=== PATIENT | male | born 1945 | race Caucasian/White ===

== ENCOUNTER → 2019-04-05 09:55 | Outpatient (BNVA) | payer MEDICARE, OTHER, SELFPAY | PROVIDERS: Family Provider Nurse Practitioner; PCP Nurse Practitioner; Visit Provider Nurse Practitioner | DX: E11.9 Type 2 diabetes mellitus without complications (principal); E55.9 Vitamin D deficiency, unspecified; I10 Essential (primary) hypertension | CPT/HCPCS: 80053; 80061; 82306; 83036 ==

== ENCOUNTER → 2020-09-04 13:41 | Outpatient (BNVA) | payer OTHER, MEDICARE, SELFPAY | PROVIDERS: Family Provider Nurse Practitioner; PCP Emergency Medicine Emergency Medical Services; Referring Provider Emergency Medicine Emergency Medical Services; Visit Provider Urology | DX: R97.20 Elevated prostate specific antigen [PSA] (principal); N39.9 Disorder of urinary system, unspecified | CPT/HCPCS: 81003; 84153 ==

== ENCOUNTER 2021-07-29 02:06 | Inpatient (IN) | payer OTHER, MEDICARE, SELFPAY ==
[2021-07-29] VITALS (170 sets, daily range): BP systolic 73–176; BP diastolic 41–116; PULSE 87–117; RESP 7–45; TEMP 36.5–37.3; O2SAT 81–95; BMI 36.3
--- NOTE | 2021-07-29 02:11 | ECG_ITS ---
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 Measurements Intervals [place] Rate: 102 P: 46 AR: 174 QRS: -23 QRSD: 97 T: 42 QT: 324 QTc: 424 Interpretive Statements SINUS TACHYCARDIA PROBABLE INFERIOR MYOCARDIAL INFARCTION , PROBABLY OLD [35 ms Q WAVE IN II/aVF] Compared to ECG 07/29/2021 02:13:30 No significant changes Electronically Signed On 07-29-2021 19:39:41 CDT by Shy Johnson M.D. [id number]
--- NOTE | 2021-07-29 02:11 | XRR_ITS ---
PROCEDURE INFORMATION: Exam: XR Chest Exam date and time: 07/29/2021 2:18 AM Age: 76 years old Clinical indication: Other: Weakness TECHNIQUE: Imaging protocol: XR of the chest. Views: 1 view. COMPARISON: CT Abdomen/Pelvis Renal [id number] 04/23/2017 11:36 AM FINDINGS: Lungs: There is some indistinctness of the pulmonary vasculature and increased interstitial opacity seen in the mid and lower hemithoraces, findings suggesting pulmonary edema. Pleural spaces: Unremarkable. No pleural effusion. No pneumothorax. Heart/Mediastinum: Unremarkable. No cardiomegaly. Bones/joints: Unremarkable. XR/XR chest 1V portable [id number] IMPRESSION: 1. Indistinct pulmonary vasculature and increased interstitial opacities in the mid lower hemithoraces suggest pulmonary edema.
--- NOTE | 2021-07-29 02:16 | W.ED.WEAKNES ---
HPI - Weakness General: Chief complaint: Weakness Stated complaint: Weakness Time Seen by Provider: 07/29/21 02:07 Source: patient and EMS Mode of arrival: EMS Limitations: altered mental status History of Present Illness: 76-year-old male who is here from assisted living. He states he has been getting generally weak over the last 4 to 5 days he had multiple falls EMS states he been called out to his house multiple times. He states that today he was unable to stand on his own and he did agree to come. He is found to be hyperglycemic with a blood sugar of 520 patient has had some slight confusion to is able to tell me his name but is confused on the year and he believes he is in [place]. He has been afebrile he denies a cough. Associated symptoms: Reports confusion; Denies chest pain, chills, dysuria, easy bruising, fever(s), nausea or vomiting Review of Systems Const: Denies: fever(s), chills, body aches or change in appetite Eyes: Denies: blurry vision or eye discomfort ENMT: Denies: throat pain or dental pain Card: Denies: chest pain Resp: Denies: dyspnea GI: Denies: abdominal pain, nausea, vomiting or diarrhea : Denies: dysuria Musc: Denies: neck pain or back pain Skin/Breast: Denies: rash Neuro: Reports: weakness in extremities and confusion Psych: Denies: depression Yury/Lymph: Denies: easy bruising All/Imm: Denies: urticaria PFSH ED PFSH: Medical History Hypertension ALEX on CPAP Seasonal allergic rhinitis Type 2 diabetes mellitus with diabetic polyneuropathy Vitamin D insufficiency Surgical History History of basal cell carcinoma (BCC) excision (~06/2016) History of cataract removal with insertion of prosthetic lens (~2016) RIGHT: 05/13/16 LEFT: 06/03/16 History of lumbosacral spine surgery L4-L5 Family History Mother , AT AGE 93 Diabetes Stroke Cancer melanoma Father , AT AGE 86 Diabetes Social History Smoking and tobacco status: former smoker Alcohol intake: never Marital status: Current occupational status: retired History of recent travel: No Physical Exam Const: ORIENTATION/CONSCIOUSNESS: Yes oriented to person and Yes confused; not oriented to place and not oriented to time HENMT: COMMON NORMALS: normocephalic and atraumatic HEAD & SCALP: normocephalic and atraumatic Eye: COMMON NORMALS: Equal, round and reactive pupils present and EOMs intact bilaterally PUPIL: Yes Equal, round and reactive pupils present Neck/C-Spine: COMMON NORMALS: full ROM and supple Chest: COMMONS NORMALS: normal inspection of the chest and normal palpation of entire chest wall Resp: COMMON NORMALS: normal respiratory effort, No retractions, No use of accessory muscles and clear to auscultation bilaterally AUSCULTATION: clear to auscultation bilaterally Cardio: COMMON NORMALS: regular rhythm and No murmurs present (Cardio) RATE: tachycardic RHYTHM: regular rhythm GI: COMMON NORMALS: Normal to inspection, nondistended, normoactive bowel sounds present, Soft to palpation, non-tender and no masses PALPATION: Yes Soft to palpation Extremity: COMMON NORMALS: normal to inspection and full ROM Neuro: COMMON NORMALS: moves all extremities and no focal motor deficits SENSORIUM/ORIENTATION: Yes oriented to person, No oriented to place and No oriented to time Psych: COMMON NORMALS: mental status grossly normal, Normal thought process present and cooperative THOUGHT PROCESS: Normal thought process present Skin: COMMON NORMALS: no rashes or lesions noted and no wounds GENERAL SKIN EXAM: no rashes or lesions noted Course Vital Signs: Vital signs: Vital Signs Temperature 98.2 F 07/29/21 02:08 Pulse Rate 107 H 07/29/21 02:08 Respiratory Rate 18 07/29/21 02:08 Blood Pressure 129/65 07/29/21 02:15 Pulse Oximetry 90 07/29/21 02:08 MDM - Weakness Medical Decision Making Patient presents with generalized weakness he was found to be likely septic. His blood pressures been stable but he does have an elevated level white count along with lactic acidosis. Patient's been fluid resuscitated given IV antibiotics he has a possible pneumonia. Patient been afebrile here and hemodynamically stable I spoke to hospitalist will admit to ICU. Lab Data : 07/29/21 01:56 07/29/21 01:56 Radiology Impressions Chest X-Ray 07/29/21 02:11 IMPRESSION: 1. Indistinct pulmonary vasculature and increased interstitial opacities in the mid lower hemithoraces suggest pulmonary edema. Head CT 07/29/21 02:20 IMPRESSION: There are no acute intracranial findings. Laboratory Results WBC 24.9 10^3/uL (4.0-10.0) H 07/29/21 01:56 RBC 5.25 10^6/uL (4.1-5.3) 07/29/21 01:56 Hgb 15.4 g/dL (11.7-16.6) 07/29/21 01:56 Hct 48.1 % (42.0-52.0) 07/29/21 01:56 MCV 91.6 fl (80-94) 07/29/21 01:56 MCH 29.3 pg (28.0-34.0) 07/29/21 01:56 MCHC 32.0 g/dL (30.0-36.0) 07/29/21 01:56 RDW 13.3 % (12.1-15.1) 07/29/21 01:56 Plt Count 174 10^3/cmm (130-400) 07/29/21 01:56 MPV 12.2 fL (7.4-10.4) H 07/29/21 01:56 Lymph % (Auto) Not Reportable 07/29/21 01:56 [place] % (Auto) Not Reportable 07/29/21 01:56 Lymph # (Auto) Not Reportable 07/29/21 01:56 [place] # (Auto) Not Reportable 07/29/21 01:56 Total Counted 100 (0-100) 07/29/21 01:56 Atypical Lymphs % 0.0 % (0-5) 07/29/21 01:56 Absolute Neutrophils 24.4 10^3/cmm (1.4-6.5) H 07/29/21 01:56 Segmented Neutrophils 88 % 07/29/21 01:56 Abs Segm Neuts (Man) 21.9 10/cmm (1.6-7.1) H 07/29/21 01:56 Band Neutrophils 10.0 % 07/29/21 01:56 Abs Band Neuts (Man) 2.5 10^3/cmm (0.0-1.2) H 07/29/21 01:56 Absolute Lymphocytes 0.2 10^3/cmm (1.2-3.4) L 07/29/21 01:56 Lymphocytes (Manual) 1 % 07/29/21 01:56 Monocytes (Manual) 0.0 % 07/29/21 01:56 Absolute Monocytes 0.0 10^3/cmm (0.1-0.6) L 07/29/21 01:56 Eosinophils (Manual) 0 % 07/29/21 01:56 Absolute Eosinophils 0.0 10^3/cmm (0.0-0.7) 07/29/21 01:56 Basophils (Manual) 0.0 % 07/29/21 01:56 Absolute Basophils 0.0 10^3/cmm (0.0-0.2) 07/29/21 01:56 Metamyelocytes 1.0 % 07/29/21 01:56 Toxic Granulation 1+ H 07/29/21 01:56 Toxic Vacuolation 1+ H 07/29/21 01:56 Platelet Estimate Normal (Normal) 07/29/21 01:56 PT 16.90 SECONDS (12.1-14.9) H 07/29/21 01:56 INR 1.34 (0.8-1.2) H 07/29/21 01:56 Specimen Type Arterial 07/29/21 02:59 Sample Site Radial, right 07/29/21 02:59 ABG pH 7.36 (7.35-7.45) 07/29/21 02:59 ABG pCO2 31.1 mmHg (35-45) L 07/29/21 02:59 ABG pO2 66.7 mmHg (80.0-100.0) L 07/29/21 02:59 ABG HCO3 17.6 mmol/L (22-26) L 07/29/21 02:59 ABG Base Excess -6.6 mmol/L (-2.0-2.0) L 07/29/21 02:59 Max Test Pos 07/29/21 02:59 Hematocrit 45.8 % (42-52) 07/29/21 02:59 FiO2 21.0 % 07/29/21 02:59 Analytics Specialist ID [email or web address] 07/29/21 02:59 Sodium 131 mmol/L (136-145) L 07/29/21 01:56 Potassium 4.0 mmol/L (3.5-5.1) 07/29/21 01:56 Chloride 90 mmol/L (98-107) L 07/29/21 01:56 Carbon Dioxide 16 mmol/L (22-29) L 07/29/21 01:56 Anion Gap 29.0 (5-19) H 07/29/21 01:56 BUN 38 mg/dL (8-23) H 07/29/21 01:56 Creatinine 2.0 mg/dL (0.7-1.2) H 07/29/21 01:56 GFR Calculation Not Reportable 07/29/21 01:56 Glucose 521 mg/dL (65-115) H* 07/29/21 01:56 POC Glucose 518 mg/dL (70-110) H* 07/29/21 02:17 Calculated Osmolality 305 mOsm/kg (285-295) H 07/29/21 01:56 Lactate 6.5 mmol/L (0.5-2.2) H* 07/29/21 03:30 Calcium 9.3 mg/dL (8.5-10.5) 07/29/21 01:56 Total Bilirubin 0.6 mg/dL (0.15-1.2) 07/29/21 01:56 AST 35 U/L (0-40) 07/29/21 01:56 ALT 30 U/L (0-41) 07/29/21 01:56 Alkaline Phosphatase 183 IU/L (40-130) H 07/29/21 01:56 Troponin T Baseline 50 ng/L (0-15) H 07/29/21 01:56 Total Protein 7.4 g/dL (6.6-8.7) 07/29/21 01:56 Albumin 3.5 g/dL (3.5-5.2) 07/29/21 01:56 Globulin 3.9 g/dL (1.3-4.6) 07/29/21 01:56 Urine Color Yellow (Yellow) 07/29/21 04:08 Urine Appearance Sl hazy (CLEAR) 07/29/21 04:08 Urine pH 5 (5-7) 07/29/21 04:08 Ur Specific [place] 1.020 (1.005-1.030) 07/29/21 04:08 Urine Protein 1+ (Negative) H 07/29/21 04:08 Urine Glucose (UA) 4+ (Normal) H 07/29/21 04:08 Urine Ketones 1+ (Negative) H 07/29/21 04:08 Urine Blood 2+ (Negative) H 07/29/21 04:08 Urine Nitrate Negative (Negative) 07/29/21 04:08 Urine Bilirubin Neg (Negative) 07/29/21 04:08 Urine Urobilinogen Norm mg/dL (Negative) 07/29/21 04:08 Ur Leukocyte Esterase Negative (Negative) 07/29/21 04:08 Urine RBC 5-10 /hpf (0-2) H 07/29/21 04:08 Urine WBC 5-10 /hpf (0-5) H 07/29/21 04:08 Ur Squamous Epith Cells 0-4 /hpf (0-5) H 07/29/21 04:08 Amorphous Sediment 1+ /hpf 07/29/21 04:08 Urine Bacteria Trace /hpf (NONE) 07/29/21 04:08 Fine Granular Casts 0-4 /lpf H 07/29/21 04:08 Coarse Granular Casts 0-4 /lpf H 07/29/21 04:08 Urine Mucus 1+ /hpf 07/29/21 04:08 Serum Ketones Negative (Negative) 07/29/21 01:56 EKG Data EKG 1: I personally reviewed and interpreted this EKG as follows: EKG interpretation date: 07/29/21 EKG interpretation time: 02:13 Interpretation: sinus tach hr [address] or t wave abnormalities qrs 96 qtc 385 Critical Care Time Critical Care Time: Critical Care Time: Yes Total Critical Care Time: 45 Attestation: The high probability of a clinically significant, sudden or life threatening deterioration of the patient's resp system(s) required my full and direct attention, intervention and personal management. The critical care time is as shown. This time is in addition to time spent performing any reported procedures but includes the following: [x] Data and vital sign review and interpretation [x] Patient assessment, examination and intervention [x] Documentation [x] Medication orders and management Discharge Plan Discharge Patient Disposition: Admitted As Inpatient Admit Provider: Farmer,Sohan Clinical Impression: Altered mental status, Hyperglycemia, Acidosis, lactic Condition: Stable Coding Level of Care Code ED Securities Sales Associate for Chg Fwd Exam Comprehensive
[2021-07-29 02:19] LABS: Hematocrit 48.1 % (42.0-52.0); Hemoglobin 15.4 g/dL (11.7-16.6); Mean Corpuscular Hemoglobin 29.3 pg (28.0-34.0); Mean Corpuscular Volume 91.6 fl (80-94); Mean Platelet Volume 12.2 fL (7.4-10.4); Platelet Count 174 10^3/cmm (130-400); Red Blood Count 5.25 10^6/uL (4.1-5.3); Red Cell Distribution Width 13.3 % (12.1-15.1); White Blood Count 24.9 10^3/uL (4.0-10.0)
[2021-07-29 02:20] LABS: Glucose Point of Care 518 mg/dL (70-110)
--- NOTE | 2021-07-29 02:20 | CTR_ITS ---
PROCEDURE INFORMATION: Exam: CT Head Without Contrast Exam date and time: 07/29/2021 3:18 AM Age: 76 years old Clinical indication: Altered mental status/memory loss; Confusion or disorientation; Additional info: AMS TECHNIQUE: Imaging protocol: Computed tomography of the head without contrast. Radiation optimization: All CT scans at this facility use at least one of these dose optimization techniques: automated exposure control; mA and/or kV adjustment per patient size (includes targeted exams where dose is matched to clinical indication); or iterative reconstruction. COMPARISON: No relevant prior studies available. RADIATION DOSE METRICS: Total DLP (mGy-cm): 993.64 FINDINGS: Brain: There is mild diffuse cerebral atrophy. Patchy areas of hypoattenuation are seen in the deep white matter of the cerebral hemispheres bilaterally compatible with deep white matter microvascular disease. Cerebral ventricles: No ventriculomegaly. Paranasal sinuses: Visualized sinuses are unremarkable. No fluid levels. Mastoid air cells: Visualized mastoid air cells are well aerated. Bones/joints: Unremarkable. No acute fracture. Soft tissues: Unremarkable. CT/CT head wo con* [id number] IMPRESSION: There are no acute intracranial findings.
[2021-07-29 02:35] LABS: Alanine Aminotransferase 30 U/L (0-41); Albumin Level 3.5 g/dL (3.5-5.2); Alkaline Phosphatase 183 IU/L (40-130); Aspartate Amino Transferase 35 U/L (0-40); Blood Urea Nitrogen 38 mg/dL (8-23); Calcium 9.3 mg/dL (8.5-10.5); Carbon Dioxide 16 mmol/L (22-29); Chloride 90 mmol/L (98-107); Globulin 3.9 g/dL (1.3-4.6); Osmolality Calculated 305 mOsm/kg (285-295); Sodium 131 mmol/L (136-145); Total Bilirubin 0.6 mg/dL (0.15-1.2); Total Protein 7.4 g/dL (6.6-8.7)
[2021-07-29 02:36] LABS: Troponin(5th) Baseline 50 ng/L (0-15)
[2021-07-29 02:46] LABS: Creatinine Clr Calc Pharmacy 42.8029
[2021-07-29 02:47] LABS: Glucose 521 mg/dL (65-115)
[2021-07-29] MEDS: insulin regular-human 100 units/1 mL 10 UNIT IVP (02:48)
[2021-07-29 02:50] LABS: INR 1.34 (0.8-1.2)
[2021-07-29 02:57] LABS: Ketone (Acetest) Serum Negative (Negative)
[2021-07-29 03:07] LABS: Absolute Neutrophil 24.4 10^3/cmm (1.4-6.5); Absolute Segmented Neutrophil 21.9 10/cmm (1.6-7.1); Band Neutrophils Absolute 2.5 10^3/cmm (0.0-1.2); Eosinophils 0 %; Lymphocytes 1 %; Lymphocytes Absolute 0.2 10^3/cmm (1.2-3.4); Platelet Estimate Normal (Normal); Segmented Neutrophils 88 %; Total Cells Counted 100 (0-100)
[2021-07-29 03:10] LABS: ABG PCO2 31.1 mmHg (35-45); ABG PH Result 7.36 (7.35-7.45); Arterial Blood Gas Hematocrit 45.8 % (42-52); Base Excess ABG -6.6 mmol/L (-2.0-2.0); Blood Gas Allen Test Pos; Blood Gas Sample Site Radial, right; Blood Gas Sample Type Arterial; HCO3 ABG 17.6 mmol/L (22-26); PO2 ABG 66.7 mmHg (80.0-100.0)
[2021-07-29 03:18] LABS: Toxic Granulation 1+; Toxic Vacuolation 1+
[2021-07-29 03:51] LABS: Lactate (Lactic Acid level) 6.5 mmol/L (0.5-2.2)
[2021-07-29] MEDS: sodium chloride 0.9% 1,000 ML 999 ML IV ×2 (04:09→04:43)
--- NOTE | 2021-07-29 04:11 | ECG_ITS ---
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 Measurements Intervals [place] Rate: 105 P: 44 [place]: 174 QRS: 0 QRSD: 96 T: 31 QT: 324 QTc: 429 Interpretive Statements SINUS TACHYCARDIA PROBABLE INFERIOR MYOCARDIAL INFARCTION , PROBABLY OLD [35 ms Q WAVE IN II/aVF] No previous ECG available for comparison Electronically Signed On 07-29-2021 19:43:39 CDT by Shy Johnson M.D. [email or web address] ([email or web address]) montgomery va medical centerStima Systemsaultman alliance community hospitalMovaris/store/OM/[id number]
[2021-07-29] MEDS: piperacillin-tazobactam 3.375 GM in sodium chloride 0.9% (plus) 50 ML IV ×3 (04:25→20:54)
[2021-07-29 04:29] LABS: Add Urine Microscopic? YES; Bilirubin Urine Neg (Negative); Blood Urine 2+ (Negative); Glucose Urine UA 4+ (Normal); Ketones Urine 1+ (Negative); Leukocyte Esterase Urine Negative (Negative); Nitrate Urine Negative (Negative); Protein Urine 1+ (Negative); Urine Appearance SL Hazy (CLEAR); Urine Color Yellow (Yellow); Urobilinogen Urine Norm (Negative); pH Urine 5 (5-7)
[2021-07-29 04:31] LABS: Bacteria Urine TRACE /hpf; Mucus Urine 1+ /hpf; Squamous Epithelial Cell Urine 0-4 /hpf (0-5)
[2021-07-29 04:32] LABS: Add Urine Culture? No; Amorphous Sediment Urine 1+ /hpf; Coarse Granular Casts Urine 0-4 /lpf; Fine Granular Casts Urine 0-4 /lpf
[2021-07-29] MEDS: vancomycin 1,000 MG in sodium chloride 0.9% 250 ML 250 MG IV (04:56)
--- NOTE | 2021-07-29 05:01 | P.HP_ITS ---
Providers/Chief Complaint Admitting Physician: Sohan Farmer MD Primary Care Provider: Domingo Lazcano DO Chief Complaint: Weakness History of Present Illness Jorge Tomlin is a 76 year old male with past medical history of hypertension diabetes obstructive sleep apnea resident of [place] Came in with chief complaint of generalized weakness, as well as back pain. patient is very hard of hearing, history taking has been very difficult. Patient has denied any fever chest pain cough shortness of breath. Upon arrival in the ER: He was worked up for above-mentioned complaint. Pertinent imaging studies: X-ray chest:No Infiltrates , no effusion no pneumothorax. CT head without contrast: no acute intracranial findings. EKG: SINUS TACHYCARDIA. Pertinent lab: WBC : 24.9 , H&H: 15/48 , PLT : 174 , serum sodium 131 , serum potassium 4, BUN and serum creatinine 38/2 , random blood sugar 521, serum ketone negative, anion gap 29, lactic acid 6.5 Baseline troponin: 50 Urinalysis: Urine nitrite negative, urine leukocyte esterase negative, urine WBC 5-10, trace urine bacteria. Patient received IV fluid as well as 1 dose of Vanco and Zosyn in the ER Review of Systems General: Reports: 10 or more systems reviewed and unremarkable except in HPI and below Narrative: 67-year-old currently not in acute distress being admitted for chest pain evaluation Const: Denies: fever(s) or chills Resp: Denies: dyspnea, productive cough, wheezing or pain on inspiration : Denies: flank pain or difficulty urinating Musc: Reports: back pain; Denies: extremity pain or extremity swelling Neuro: Denies: headache(s), difficulty walking or confusion Medications/Allergies Home Medications Medication Instructions Recorded Confirmed Last Taken Type tizanidine 2 mg capsule 2 mg PO TID PRN #90 cap 03/29/19 09/04/20 Unknown Rx diltiazem HCl 180 mg 180 mg PO DAILY #30 cap 04/07/19 09/04/20 Unknown Rx capsule,extended release 24 hr, controlled duloxetine 30 mg capsule,delayed 30 mg PO BID #60 cap 04/07/19 09/04/20 Unknown Rx release (Cymbalta) furosemide 40 mg tablet (Lasix) 40 mg PO DAILY PRN #30 tab 04/07/19 09/04/20 Unknown Rx glipizide 2.5 mg tablet, extended 2.5 mg PO DAILY #30 tab 04/07/19 09/04/20 Unknown Rx release 24 hr linagliptin 5 mg tablet (Tradjenta) 5 mg PO DAILY #30 tab 04/07/19 09/04/20 Unknown Rx valsartan 160 mg tablet 160 mg PO DAILY #30 tab 04/07/19 09/04/20 Unknown Rx topiramate 100 mg tablet (Topamax) 100 mg PO BID #60 tab 04/22/19 09/04/20 Unknown Rx fluticasone propionate 50 2 spray INTRANASAL DAILY PRN 09/04/20 09/04/20 Unknown History mcg/actuation nasal spray,suspension ibuprofen 200 mg capsule 200 mg PO Q6H PRN 09/04/20 09/04/20 Unknown History Allergies Allergy/AdvReac Type Severity Reaction Status Date / Time pravastatin AdvReac Leg cramps Verified 09/04/20 13:42 PFSH Acute PFSH: Medical History Hypertension ALEX on CPAP Seasonal allergic rhinitis Type 2 diabetes mellitus with diabetic polyneuropathy Vitamin D insufficiency Surgical History History of basal cell carcinoma (BCC) excision (~06/2016) History of cataract removal with insertion of prosthetic lens (~2016) RIGHT: 05/13/16 LEFT: 06/03/16 History of lumbosacral spine surgery L4-L5 Family History Mother , AT AGE 93 Diabetes Stroke Cancer melanoma Father , AT AGE 86 Diabetes Social History Smoking and tobacco status: former smoker Alcohol intake: never Marital status: Current occupational status: retired History of recent travel: No Vitals/I&O/Wt Last Vital Signs Temp 98.2 F 07/29/21 02:08 Pulse 107 H 07/29/21 02:08 Resp 18 07/29/21 02:08 BP 129/65 07/29/21 02:15 Pulse Ox 90 07/29/21 02:08 07/28/21 07/28/21 07/29/21 14:59 22:59 06:59 Intake Total 550 / 550 Balance 550 / 550 Weight last 48 hrs Weight 124.738 kg Physical Exam Const: COMMON NORMALS: patient oriented x3 HENMT: COMMON NORMALS: normocephalic and atraumatic HEAD & SCALP: no rmocephalic and atraumatic Chest: CHEST: Yes Symmetrical chest wall rise Resp: COMMON NORMALS: normal respiratory effort, No retractions, No use of accessory muscles and clear to auscultation bilaterally EFFORT & INSPECTION: Yes symmetric chest movement AUSCULTATION: clear to auscultation bilaterally Cardio: COMMON NORMALS: regular rate, regular rhythm, S1 normal heart sound present, S2 normal heart sound present, No gallops present (Cardio), No murmurs present (Cardio), No rub (Cardio) and Peripheral pulses 2+ throughout RATE: regular rate RHYTHM: regular rhythm HEART SOUNDS: S1 normal heart sound present and S2 normal heart sound present PERIPHERAL PULSES: Peripheral pulses 2+ throughout GI: COMMON NORMALS: Normal to inspection, nondistended, normoactive bowel sounds present, Soft to palpation, non-tender, No hepatosplenomegaly present and no masses AUSCULTATION: Yes normoactive bowel sounds PALPATION: Yes Soft to palpation and Yes No hepatosplenomegaly present RECTAL EXAM: Yes deferred Extremity: COMMON NORMALS: no clubbing, cyanosis or edema and no pedal edema Neuro: COMMON NORMALS: patient oriented x3 Data : 07/29/21 01:56 07/29/21 01:56 A&P Assessment and plan (1) Hypertension: Status: Chronic Qualifiers: Hypertension type: essential hypertension Qualified Code(s): I10 - Essential (primary) hypertension (2) Type 2 diabetes mellitus with diabetic polyneuropathy: Status: Chronic Qualifiers: 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: with 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 Qualified Code(s): E11.42 - Type 2 diabetes mellitus with diabetic polyneuropathy; Z79.4 - technician terminal and repeater (current) use of insulin (3) Hyperglycemia: Status: Acute (4) SIRS (systemic inflammatory response syndrome): Status: Acute (5) Hyperglycemia: Status: Acute (6) Acidosis, lactic: Status: Acute (7) ALEX on CPAP: Status: Chronic (8) Acute kidney injury superimposed on CKD: Status: Acute Plan 76 year old male with past medical history of hypertension diabetes obstructive sleep apnea resident of [place] Came in with chief complaint of generalized weakness, as well as back pain. Assessment: SIRS rule out sepsis Hypertension Diabetes Hyperglycemia CKD versus SHREE on CKD Obstructive sleep apnea Plan: Follow blood culture Urine culture Procalcitonin Repeat lactic acid Continue empirically with Vanco and Zosyn Continue Lantus 20 U SC bedtime, MDSSI, monitor fingerstick glucose Continue gentle IVF normal saline at 75 cc an hour Monitor BMP Avoid nephrotoxic's Random urine sodium Random urine creatinine Intake output charting Avoid nephrotoxic's Renal ultrasound CODE STATUS: Full code DVT prophylaxis: Attestations Medical Necessity Statement*: Patient is to be in hospital for management of SIRS rule out sepsis. Anticipated length of stay greater than 2 midnightS Time Spent in Patient Care: Greater than 35 minutes (>than 50% of time spent in counselling and/or direct pt care on unit) . 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
--- NOTE | 2021-07-29 05:28 | PC.PHAR ---
Vancomycin is dosed at 1500mg IVPB every 24 hours to produce a predicted trough level of 14.42 (population based pharmacokinetic analysis). A trough level has been ordered from the lab to be obtained before the fourth dose to confirm and adjust if needed.
--- NOTE | 2021-07-29 05:37 | USCV_ITS ---
Jorge Tomlin Age: 76 Gender: M : 1945 Exam Date: 07/29/2021 08:11 Ordering Phys: Sohan Farmer MD Technologist: DEBBIE [place] [facility] [place]: sob BP: 145 / 99 HR: 109 Rhythm: Sinus Technical Quality: Technically difficult study MEASUREMENTS (Male / Female) Normal Values 2D ECHO LVOT Diameter 2.0 cm LV Ejection Fraction MOD 2C 61.9 % LV Ejection Fraction 2C AL 63.1 % DOPPLER AV Peak Velocity 114.0 cm/s LVOT Peak Velocity 80.0 cm/s AV Area Cont Eq vti 2.6 cm squared AV Area Cont Eq pk 2.3 cm squared MV Area PHT 5.0 cm squared Mitral E to A Ratio 1.2 MV E' Velocity 78.0 cm/s TR Peak Velocity 127.0 cm/s TR Peak Gradient 6.5 mmHg TV Peak E Velocity 95.0 cm/s Right Atrial Pressure 3.0 mmHg Pulmonary Artery Systolic Pressu 9.5 mmHg FINDINGS Left Ventricle Technically very limited study . The left ventricle appears to be of normal size and possibly normal ejection fraction. Right Ventricle The right ventricle is of normal size. There is some diffuse hypokinesia of the right ventricular free wall Right Atrium Could not be visualized Left Atrium Could not be visualized Mitral Valve Could not be visualized Aortic Valve Could not be visualized Tricuspid Valve Could not be visualized Pulmonic Valve Could not be visualized Pericardium No pericardial effusion Aorta Could not be visualized IVC Could not be visualized CONCLUSIONS Possibly normal LV size and ejection fraction. Right ventricle appears to be of normal size with moderate diffuse hypokinesia No pericardial effusion Technically very limited study Echo contrast was used Dr Shy Johnson MD FAC (Electronically Signed) Final Date: 29 July 2021 17:11 S
[2021-07-29] MEDS: hyDRALAzine 25 mg Tablet PO (06:20)
[2021-07-29] MEDS: sodium chloride 0.9% 1,000 ML 75 ML IV (06:21)
[2021-07-29] MEDS: heparin 5,000 unit/mL INJ 1 mL 5000 UNIT SUBCUT ×2 (06:21→17:35)
[2021-07-29] MEDS: insulin glargine 100 units/1 mL 20 UNIT SUBCUT (06:21)
[2021-07-29] MEDS: insulin regular-human 250 UNIT in sodium chloride 0.9% 250 ML 9.21 UNIT IV (07:58)
[2021-07-29] MEDS: topiramate 100 mg Tablet PO (08:06)
[2021-07-29] MEDS: duloxetine 30 mg Capsule PO ×2 (08:06→17:35)
[2021-07-29] MEDS: dilTIAZem ER (24HR) 180 mg Capsule PO (08:06)
--- NOTE | 2021-07-29 08:11 | ECG_ITS ---
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 Measurements Intervals [place] Rate: 106 P: [place]: QRS: -40 QRSD: 98 T: 42 QT: 308 QTc: 409 Interpretive Statements Multifocal atrial tachycardia LOW QRS VOLTAGE IN PRECORDIAL LEADS [QRS DEFLECTION < 1.0 mV IN CHEST LEADS] PATTERN CONSISTENT WITH PULMONARY DISEASE INFERIOR MYOCARDIAL INFARCTION , PROBABLY OLD [40+ ms Q WAVE AND/OR ST/T ABNORMALITY IN II/aVF] Compared to ECG 07/29/2021 07:28:55 Low QRS voltage now present Sinus tachycardia no longer present Myocardial infarct finding still present Electronically Signed On 07-29-2021 19:45:32 CDT by Shy Johnson M.D. [id number]
[2021-07-29 08:17] LABS: Glucose Point of Care 364 mg/dL (70-110)
--- NOTE | 2021-07-29 08:35 | CT_ITS ---
WS: [id number] CT ABDOMEN AND PELVIS NONCONTRAST HISTORY: SHREE, possible UTI, back pain TECHNIQUE: Imaging performed through the abdomen and pelvis. Coronal and sagittal reformats are submi tted. All CT scans at [facility] use at least one of these dose optimization techniques: auto mated exposure control; mA and/or kV adjustment per patient size (includes targeted exams where dose is matched to clinical indication); or iterative reconstruction. DLP: 2636.28 mGy.cm COMPARISON: 04/23/2017 Lower thorax: Dependent changes bilaterally at the lung bases. No pneumonia. Heart size is normal. Sm all hiatal hernia. Liver: Mild diffuse hepatic steatosis and hepatomegaly. Stable cyst in the LEFT lobe measures 16 mm. No bile duct dilatation. Gallbladder: Normal gallbladder. Pancreas: Normal size and attenuation. Normal pancreatic duct. No pancreatitis or mass. Spleen: Normal. Adrenal glands: Bilateral adrenal hyperplasia Right kidney: Normal size kidney. Exophytic 12 mm nodule from the posterior kidney is similar to the prior study. There is in the additional exophytic 7 mm nodule from the lower pole. Left kidney: Nonobstructing 3 mm calcification in the mid kidney. Aorta: Moderate to severe atherosclerosis abdominal aorta. No aneurysm. Atherosclerosis continues int o the common iliac arteries. No free fluid, intraperitoneal air or significant lymphadenopathy. GI tract: Moderate distention of the stomach with fluid. No small bowel obstruction. Increased amount of air fecal material throughout the colon with no obstruction. There are a few scattered diverticul a. No appendicitis. Abdominal wall: Negative. No hernia. Pelvis: Nondistended urinary bladder. Martins catheter is present within the bladder. Osseous structures: Advanced degenerative disc disease and facet arthritis within the lumbar spine. N o fracture. CT/CT kidney stone [id number] IMPRESSION: 1. Study compromised by body habitus and breathing artifact. 2. No renal obstruction or significant perinephric stranding. 3. Exophytic subcentimeter masses from the RIGHT kidney cannot be further porsha acterized on this unenhanced study due to their small size and no contrast. 4. No appendicitis. 5. Subsegmental atelectasis at the lung bases.
[2021-07-29] MEDS: perflutren protein-a microsphr 0.22 mg/mL SDV 3 mL IV (08:42)
[2021-07-29 08:54] LABS: Glucose Point of Care 336 mg/dL (70-110)
[2021-07-29 09:00] LABS: Troponin 5 6HR 43.64 ng/L (0-15)
[2021-07-29 09:01] LABS: Troponin 5 6HR Delta -6.36 ng/L (0-12)
[2021-07-29 09:11] LABS: Alanine Aminotransferase 29 U/L (0-41); Alkaline Phosphatase 231 IU/L (40-130); Anion Gap 25.3 (5-19); Aspartate Amino Transferase 43 U/L (0-40); Blood Urea Nitrogen 44 mg/dL (8-23); Calcium 8.8 mg/dL (8.5-10.5); Carbon Dioxide 18 mmol/L (22-29); Chloride 93 mmol/L (98-107); Globulin 3.4 g/dL (1.3-4.6); Glucose 404 mg/dL (65-115); Magnesium 1.8 mg/dL (1.7-2.3); Osmolality Calculated 302 mOsm/kg (285-295); Phosphorus 3.2 mg/dL (2.5-4.5); Potassium 4.3 mmol/L (3.5-5.1); Sodium 132 mmol/L (136-145); Total Bilirubin 0.8 mg/dL (0.15-1.2); Total Protein 6.4 g/dL (6.6-8.7)
[2021-07-29 09:31] LABS: Oxygen Device ROOMAIR
[2021-07-29 09:57] LABS: Glucose Point of Care 407 mg/dL (70-110)
[2021-07-29 09:57] LABS: Glucose Point of Care 415 mg/dL (70-110)
[2021-07-29 10:14] LABS: Glucose Point of Care 330 mg/dL (70-110)
--- NOTE | 2021-07-29 11:04 | US_ITS ---
WS: [id number] RIGHT UPPER QUADRANT ULTRASOUND HISTORY: Hepatobiliary COMPARISON: CT 07/29/2021. Significant limitation by body habitus. Liver: 19.6 cm in length. Enlarged liver is incompletely visualized. Liver appears dense and changes of steatosis. Small cyst along the surface of the RIGHT lobe of the liver measures 1.8 x 1.5 x 2.2 cm . No bile duct dilatation. Portal Vein: Normal hepatopetal flow with monophasic waveform. Gallbladder: Normally distended gallbladder with no stones or wall thickening. CBD: Not visualized. Pancreas: Not visualized. Right kidney: 10.9 cm in length. Very poorly visualized. Cannot exclude mass or hydronephrosis. Aorta and IVC: Negative IVC. Aorta is poorly visualized. No ascites identified. US/US abdomen limited [id number] IMPRESSION: 1. Very limited evaluation of the RIGHT upper quadrant due to body habitus. 2. Hepatic steatosis and hepatomegaly and hepatic cyst. 3. No gallbladder abnormality identified.
[2021-07-29 11:09] LABS: Glucose Point of Care 318 mg/dL (70-110)
--- NOTE | 2021-07-29 11:10 | P.PN_ITS ---
Subjective Subjective: This morning he reports he is doing fair . Denies pain or discomfort in any particular location. Denies trouble breathing. No headache. No abdominal or right upper quadrant tenderness. Back is not bothering him much now. He is somewhat confused. Knows he is in the hospital, but thinks he is in [facility]. Cannot tell me the year. Denies any leg pain, he can move his right foot without issues. No pain with movement. Vitals/I&O/Wt Last Vital Signs Temp 97.7 F 07/29/21 08:15 Pulse 115 H 07/29/21 09:05 Resp 30 H 07/29/21 09:05 BP 170/104 07/29/21 09:05 Pulse Ox 95 07/29/21 09:05 07/28/21 07/29/21 07/29/21 22:59 06:59 14:59 Intake Total 550 / 550 36.037 / 36.037 Balance 550 / 550 36.037 / 36.037 Weight last 48 hrs Weight 124.738 kg Physical Exam Narrative: Noted to be coughing Const: COMMON NORMALS: alert GENERAL APPEARANCE: cooperative NUTRITIONAL APPEARANCE: obese ORIENTATION/CONSCIOUSNESS: Yes awake; not oriented to place and not oriented to time OTHER: Not a good historian. Otherwise cooperative, follows directions, provides ROS. HENMT: COMMON NORMALS: normocephalic, EAC's normal, Normal external nose present and moist oral mucous membranes HEAD & SCALP: normocephalic NOSE: Normal external nose present EXTERNAL AUDITORY CANAL: EAC's normal Neck/C-Spine: COMMON NORMALS: no meningeal signs Chest: CHEST: Yes Symmetrical chest wall rise Resp: COMMON NORMALS: clear to auscultation bilaterally AUSCULTATION: clear to auscultation bilaterally Cardio: COMMON NORMALS: regular rate, regular rhythm and No murmurs present (Cardio) RATE: regular rate RHYTHM: regular rhythm GI: COMMON NORMALS: Normal to inspection, nondistended, normoactive bowel sounds present, Soft to palpation and non-tender PALPATION: Yes Soft to palpation OTHER: Nontender to deep palpation, including RUQ Extremity: COMMON NORMALS: no pedal edema OTHER: R>L Neuro: COMMON NORMALS: moves all extremities SENSORIUM/ORIENTATION: Yes alert, No oriented to place and No oriented to time MENINGEAL SIGNS: Yes no meningeal signs Psych: COMMON NORMALS: mental status grossly normal Skin: COMMON NORMALS: no wounds RASHES: rashes noted (RLE below knee/above ankle dull erythema and warmth) WOUNDS: Yes wounds noted (cracked skin dist plantar R foot near hallux skin crack 1cm, no drain/eryth) Data : 07/29/21 01:56 07/29/21 08:10 Micro: Microbiology 07/29/21 04:17 Blood Culture - Preliminary Blood SPECIMEN COLLECTED 07/29/21 04:05 Blood Culture - Preliminary Blood SPECIMEN COLLECTED A&P Assessment and plan (1) SIRS (systemic inflammatory response syndrome): Possible severe sepsis with lactic acidosis, SHREE, acute encephalopathy, with leukocytosis 24.9, tachycardia 115. Afebrile. He is coughing, although no obvious pneumonia on chest x-ray. Possible pulmonary source, possible atypical infection. We will also check COVID-19 PCR. Possible urinary infection, 5-10 RBC, 5-10 WBC. 0-4 squamous pleural cells. Negative nitrates. Assessed with CT abdomen pelvis renal stone protocol. No hydronephrosis noted. Questionable exophytic poorly visualized renal masses in the left kidney. Will need further follow-up later. Definitely has cellulitis of right lower extremity. Additionally obtain duplex of same extremity. Follow-up blood cultures. Empirically continue Zosyn, vancomycin at this time. Lactic acid recheck, slightly better, but not significantly improved, at 6. Unknown prior history of liver disease. Does have alkaline phosphatase elevation as well, which has been rising. Noted upper quadrant pain. Other liver parameters normal. Will obtain limited hepatobiliary ultrasound as well to assess possibility (although lower likelihood) of hepatobiliary infection. Assess echogenicity of the liver. Unknown if any history of liver fibrosis or cirrhosis. This could contribute to lactic acidosis, ketoacidosis. Check topiramate level. Add PPI prophylaxis. Status: Acute (2) Acidosis, lactic: Possible severe sepsis as above. Unknown if prior liver disease. Assess limited hepatobiliary ultrasound with management as above. Does have INR abnormality, 1.34, not on anticoagulation. Status: Acute (3) Acute kidney injury superimposed on CKD: Possible severe sepsis as above. Possible SHREE secondary sepsis. Possible secondary to NSAID, valsartan. Hold these medications. No hydronephrosis noted on CT renal stone. Received fluid challenge, hold further IVF. Adjusted topiramate dose. Track I&O and weights. Status: Acute (4) Cellulitis: Right lower extremity between knee and ankle dull redness, warmth. RLE> LLE. Assess venous duplex for possibility of DVT. Able to move right foot without problems. No pain. Findings not suggestive of compartment syndrome at the moment. Status: Acute (5) Hyperglycemia: Severe hyperglycemia in the 500s. Also ketones positive in urine. Possible early ketoacidosis cannot be excluded, the pH normal, but makes disorder as does have anion gap acidosis. Possible DKA cannot be excluded. Insulin drip. IV hydration. Follow-up electrolytes, maintaining potassium. Status: Acute (6) Acute encephalopathy: Acute metabolic encephalopathy with possible severe sepsis, with also other abnormalities including SHREE, possible toxic encephalopathy with SHREE and tizanidine or other medications. Hold this medication for now. Management Conditions as above. Status: Acute (7) Rhabdomyolysis: Mild rhabdomyolysis, CK 589. Reassess CK. Status: Acute (8) Renal mass, right: ?Exophytic subcentimeter masses from the RIGHT kidney cannot be further characterized on this unenhanced study due to their small size and no contrast. Will need follow-up after acute illness Status: Acute (9) Hypertension: Blood pressures fluctuating somewhat difficult to measure due to body habitus. Monitor blood pressures for now. Valsartan on hold due to SHREE. Status: Chronic Qualifiers: Hypertension type: essential hypertension Qualified Code(s): I10 - Essential (primary) hypertension (10) Metabolic acidosis: Anion gap anabolic acidosis, lactic acidosis, possible ketoacidosis. Status: Acute (11) Sinus tachycardia: In setting of possible severe sepsis, multiple metabolic abnormalities. Additional assessment as above. Status: Acute (12) ALEX on CPAP: Status: Chronic (13) Type 2 diabetes mellitus with diabetic polyneuropathy: Does not appear to be on metformin. Oral hypoglycemics on hold. Status: Chronic Qualifiers: Diabetes mellitus [facility] use: with [facility] Qualified Code(s): E11.42 - Type 2 diabetes mellitus with diabetic polyneuropathy; Z79.4 - shelter (current) use of insulin Plan Troponin level elevated: Mild-moderate troponin elevation, denies any chest pain or pressure. Atrial fibrillation is reported on one of the EKGs, although there are P waves there. Possible prior VT with Q waves in 2, 3 and aVF. Will need further cardiac restratification once he is more stable. For now we will assess with TTE. Possible pulmonary edema: Hold further IVF. Assess TTE. Continue oxygen support and monitor oxygenation. Resume Lasix if needed. CXR in AM. Discussed his condition with one of his sisters over the phone, he understands Gilma is said to be his power of mergers and acquisitions attorney of healthcare, but on my return visit to the room had stepped out, will further discuss with her when able. 76 year old male with past medical history of hypertension diabetes obstructive sleep apnea resident of [place] Came in with chief complaint of generalized weakness, as well as back pain. Attestations Medical Necessity Statement*: Continue admission for further management of possible severe sepsis, with SHREE, acute encephalopathy, possible pneumonia, possible pulm edema, possible UTI, cellulitis, assessment of other possible causes of SIRS, lactic acidosis, other abnormalities as above. Critical Care Time: The high probability of a clinically significant, sudden or life threatening deterioration of the patient's hemodynamic, respiratory, infectious disease, renal, cardiovascular, endocrine system(s) required my full and direct attention, intervention and personal management. The critical care time is as shown. This time is in addition to time spent performing any reported procedures but includes the following: x Data and vital sign review and interpretation x Patient assessment, examination and intervention x Documentation x Medication orders and management Critical Care Time (min): 70 Coding Level of Care Code Acute Steel Chipper for Chg Fwd Exam Comprehensive Diagnoses Hypertension I10 Hypertension type: essential hypertension Type 2 diabetes mellitus with diabetic polyneuropathy E11.42; Z79.4 Diabetes mellitus [facility] insulin use: with [facility] use Hyperglycemia R73.9 SIRS (systemic inflammatory response syndrome) R65.10 Acidosis, lactic E87.2 ALEX on CPAP G47.33; Z99.89 Acute kidney injury superimposed on CKD N17.9; N18.9 Cellulitis L03.90 Rhabdomyolysis M62.82 Acute encephalopathy G93.40 Renal mass, right N28.89 Metabolic acidosis E87.2 Sinus tachycardia R00.0
[2021-07-29 11:26] LABS: Creatine Phosphokinase 589 U/L (39-308)
--- NOTE | 2021-07-29 11:26 | USR_ITS ---
PROCEDURE INFORMATION: Exam: US Duplex Right Lower Extremity Veins, Limited Exam date and time: 07/29/2021 1:31 PM Age: 76 years old Clinical indication: Edema, localized; Lower extremity, right; Additional info: Assess for dvt TECHNIQUE: Imaging protocol: Real-time Duplex ultrasound of the Right Lower Extremity with 2-D acevedo scale, color Doppler flow and spectral waveform analysis with image documentation. Limited exam was focused on the right lower extremity veins. COMPARISON: CT kidney stone [id number] 07/29/2021 10:46 AM FINDINGS: Right deep veins: Unremarkable. The common femoral, femoral, proximal profunda femoral and popliteal veins are patent without thrombus. Normal Doppler waveforms. Normal compressibility and/or augmentation response. Right superficial veins: Unremarkable. Saphenofemoral junction is patent without thrombus. Soft tissues: Subcutaneous soft tissue edema in the lower leg. Lymph nodes: Prominent right inguinal lymph nodes are most likely reactive. US/[place] [id number] IMPRESSION: 1. No evidence for deep vein thrombosis.
--- NOTE | 2021-07-29 11:55 | PC.CHAP ---
Pastoral Care Encounter/Spiritual Assessment Type of Contact [] Declined lobbyist visit [] Patient/Family/Request visit [] Outpatient visit [] Follow-up visit [] Physician referral [] Code/Alert [x] Routine visit [] Staff referral [] Actively dying [] Patient sleeping [] Family support [] [] Out of room [] Palliative care [] [x] Receiving care in room [] Pre-surgical visit [] Trauma [] Long length of stay [x] ICU visit [] Other: Relational/Emotional Strength [] Patient feels connected with others/family/visitors/staff [] Distress [] Loneliness/isolation [] Abandonment Spirituality of Patient [] Person of Marisa [] Attends Yazidism of their Marisa [] Believes in Prayer [] Reads Bible or Anabaptism materials [] There are Spiritual issues to be addressed Shoe Lining Fitter Interventions [x] Prayer [] Active listening [] Non-anxious presence [] Spiritual/emotional support [] Crisis/trauma care [] Spiritual counseling [] Bereavement support [] Provided bereavement packet [] Provided Bible/devotional materials [] Provided toy/stuffed animal, coloring book to patient or family member [] Provided Communion [] Anointing/[place] [] Salvation [x] Completed spiritual assessment [] Other: Impact on Illness or Injury [] Angry [] Fearful [] Anxious [] Often cries [] Exhaustion [] Unable to work [] Unable to attend rastafari [] Unable to walk/stand [] Unable to read [] Unable to drive [] Unable to eat/drink [] Unable to sleep [] Unable to be with family [] Patient intubated [] Other: Summary Time spent with patient
[2021-07-29 11:56] LABS: Reflex Lactate Order REFLEX LACTIC ORDERD
--- NOTE | 2021-07-29 12:04 | PC.PHAR ---
pt unable to verify medications-pt is from [facility]-pts sister went and brought the pts medications from [facility]-pts sister didnt bring in med bottles for topamax 100mg bid,metformin 500mg take 1000mg bid those 2 medications [facility] bottles pts sister brought in -pts sister states she would like the pt get the meds to bed when pt is discharged-notes are made in the pharmacy comments
[2021-07-29 12:24] LABS: Glucose Point of Care 240 mg/dL (70-110)
[2021-07-29] MEDS: pantoprazole DR 40 mg Tablet PO (12:52)
[2021-07-29 13:02] LABS: Glucose Point of Care 222 mg/dL (70-110)
[2021-07-29 14:10] LABS: Glucose Point of Care 199 mg/dL (70-110)
[2021-07-29 15:34] LABS: Glucose Point of Care 182 mg/dL (70-110)
[2021-07-29 15:49] LABS: Bacillus cereus group Not Detected (NOT DETECT); Bacillus subtillis group Not Detected (NOT DETECT); Corynebacterium Not Detected (NOT DETECT); Cutibacterium acnes (P.acnes) Not Detected (NOT DETECT); Enterococcus Not Detected (NOT DETECT); Enterococcus faecalis Not Detected (NOT DETECT); Enterococcus faecium Not Detected (NOT DETECT); Lactobacillus species Not Detected (NOT DETECT); Listeria Not Detected (NOT DETECT); Listeria monocytogenes Not Detected (NOT DETECT); Micrococcus Not Detected (NOT DETECT); Pan Candida Not Detected (NOT DETECT); Pan Gram-Negative Not Detected (NOT DETECT); Staphylococcus epidermidis Not Detected (NOT DETECT); Staphylococcus lugdunensis Not Detected (NOT DETECT); Staphylococcus species Not Detected (NOT DETECT); Streptococcus agalactiae Detected (NOT DETECT); Streptococcus anginosus group Not Detected (NOT DETECT); Streptococcus pneumoniae Not Detected (NOT DETECT); Streptococcus pyogenes Not Detected (NOT DETECT); Streptococcus species Detected (NOT DETECT)
[2021-07-29 16:29] LABS: Glucose Point of Care 175 mg/dL (70-110)
[2021-07-29 16:50] LABS: Alanine Aminotransferase 27 U/L (0-41); Albumin Level 2.4 g/dL (3.5-5.2); Alkaline Phosphatase 162 IU/L (40-130); Anion Gap 20.1 (5-19); Aspartate Amino Transferase 43 U/L (0-40); Blood Urea Nitrogen 53 mg/dL (8-23); Calcium 8.5 mg/dL (8.5-10.5); Carbon Dioxide 19 mmol/L (22-29); Chloride 98 mmol/L (98-107); Globulin 3.8 g/dL (1.3-4.6); Glucose 183 mg/dL (65-115); Lactic Acid level (Lactate) 3.3 mmol/L (0.5-2.2); Osmolality Calculated 295 mOsm/kg (285-295); Potassium 4.1 mmol/L (3.5-5.1); Sodium 133 mmol/L (136-145); Total Bilirubin 0.8 mg/dL (0.15-1.2); Total Protein 6.2 g/dL (6.6-8.7)
[2021-07-29 16:53] LABS: Creatinine Clr Calc Pharmacy 40.7647
[2021-07-29 17:15] LABS: Glucose Point of Care 169 mg/dL (70-110)
--- NOTE | 2021-07-29 17:31 | CTR_ITS ---
PROCEDURE INFORMATION: Exam: CTA Angiogram of the Abdominal Aorta and Bilateral Lower Extremities (Run-off) With IV Contrast Exam date and time: 07/29/2021 6:34 PM Age: 76 years old Clinical indication: Cellulitis; Ankle and foot; Right; Additional info: R leg TECHNIQUE: Imaging protocol: CT angiogram of the abdominal aorta, pelvis and bilateral lower extremities with IV iodinated contrast. 3D rendering (Not supervised by radiologist): MIP and/or 3D reconstructed images were created by the technologist. Radiation optimization: All CT scans at this facility use at least one of these dose optimization techniques: automated exposure control; mA and/or kV adjustment per patient size (includes targeted exams where dose is matched to clinical indication); or iterative reconstruction. Contrast material: OMNI 350; Contrast volume: 100 ml; Contrast route: INTRAVENOUS (IV); COMPARISON: CT Abdomen/Pelvis Renal [id number] 04/23/2017 11:36 AM RADIATION DOSE METRICS: Total DLP (mGy-cm): 2762.19 FINDINGS: Aorta: Calcified plaque in the abdominal aorta. No aneurysm or dissection. Celiac trunk and mesenteric arteries: Calcified plaque with moderate-severe stenosis at the origin of the celiac artery. Calcified plaque with mild stenosis at the origin of the superior mesenteric artery. Renal arteries: No occlusion or significant stenosis. Right iliac arteries: Calcified plaque in the right common and external iliac arteries without significant stenosis. Right femoral/popliteal arteries: Mild calcified plaque without stenosis in the right superficial femoral artery. Calcified plaque with mild stenosis in the right popliteal artery. Right infrapopliteal arteries: Multifocal moderate disease in the right anterior tibial artery with visible runoff to the foot. Moderate disease in the proximal right posterior tibial artery with visible runoff to the foot. Mild disease in the right peroneal artery with visible runoff to the ankle. Left iliac arteries: Calcified plaque without significant stenosis in the left common and external iliac arteries. Left femoral/popliteal arteries: Mild calcified plaque in the left superficial femoral artery without stenosis. Calcified plaque with moderate focal stenosis in the left popliteal artery. Left infrapopliteal arteries: Severe disease throughout the left anterior tibial artery with no definite visible runoff to the foot. Mild multifocal disease in the left posterior tibial artery with runoff to the foot. Mild disease in the left peroneal artery with visible runoff to the ankle. Veins: Small gas bubbles in the inferior vena cava is most likely gas introduced during IV catheterization. Lungs: Mild atelectasis. Liver: Fluid density cyst in the left liver lobe, Hounsfield units less than 20. No follow-up imaging recommended. Gallbladder and bile ducts: Unremarkable. No calcified stones. No ductal dilation. Pancreas: Unremarkable. No mass. No ductal dilation. Spleen: Normal. No splenomegaly. Adrenal glands: Normal. No mass. Kidneys and ureters: Cortical lesions in both kidneys are too small to characterize but are most likely cysts. No follow-up imaging recommended. 2 mm nonobstructing left renal calculus. No hydronephrosis. Stomach and bowel: Mild diverticulosis of the colon. The stomach and small bowel are unremarkable. No obstruction. Appendix: The appendix is visualized and is normal. Urinary bladder: Martins catheter in a decompressed urinary bladder. Reproductive: Coarse calcifications in the prostate. Intraperitoneal space: Unremarkable. No free air. No significant fluid collection. Lymph nodes: No lymphadenopathy. Bones/joints: Degenerative changes of the spine. No acute fracture identified. Bilateral knee effusions. Severe degenerative changes of the bilateral knee joints. Soft tissues: Fat containing right inguinal hernia. Subcutaneous soft tissue edema in the right lower leg, ankle, and dorsal foot. Mild subcutaneous soft tissue edema in the bilateral medial thighs. [place] [id number] IMPRESSION: 1. Moderate disease in the right anterior tibial and posterior tibial arteries with visible runoff to the foot. 2. Calcified plaque with moderate focal stenosis in the left popliteal artery. 3. Severe multifocal disease in the left anterior tibial artery with no visible runoff to the foot. 4. Subcutaneous soft tissue edema or cellulitis in the right lower leg, ankle, and dorsal foot.
[2021-07-29] MEDS: topiramate 100 mg Tablet 50 MG PO (17:35)
[2021-07-29 18:22] LABS: Adenovirus Not Detected (NOT DETECT); Chlamydia Pneumoniae Not Detected (NOT DETECT); Coronavirus 229E,HKU1,NL63,OC4 Not Detected (NOT DETECT); Human Metapneumovirus Not Detected (NOT DETECT); Human Rhinovirus/Enterovirus Not Detected (NOT DETECT); Influenza A Not Detected (NOT DETECT); Influenza A H1 Not Detected (NOT DETECT); Influenza A H1-2009 Not Detected (NOT DETECT); Influenza A H3 Not Detected (NOT DETECT); Influenza B Not Detected (NOT DETECT); Mycoplasma Pneumoniae Not Detected (NOT DETECT); Parainfluenza Virus Type 1 Not Detected (NOT DETECT); Parainfluenza Virus Type 2 Not Detected (NOT DETECT); Parainfluenza Virus Type 3 Not Detected (NOT DETECT); Parainfluenza Virus Type 4 Not Detected (NOT DETECT); Respiratory Syncytial Virus A Not Detected (NOT DETECT); Respiratory Syncytial Virus B Not Detected (NOT DETECT); SARS-COV-2 Not Detected (NOT DETECT)
[2021-07-29] MEDS: iohexol 350 mg/mL 100 mL Btl IV (18:33)
--- NOTE | 2021-07-29 19:21 | PC.NURSE ---
Shift SUmmary: Patient rested in bed throughout the day. Is confused, alert to self only, occasionally location. Patient has had 300mL of urine output throughout the day. Patient's right leg is swollen, reddened, and hot to the touch, with discolered toes. Throughout the shift, the right leg has become more swollen, discoloration to the toes has spread, and pedal pulse though still present is diminished in comparison to earlier. Nurse alerted Dr Hood and received orders for CT, results stil pending at the time of this note.
[2021-07-29 19:24] LABS: Glucose Point of Care 157 mg/dL (70-110)
[2021-07-29 21:38] LABS: Alanine Aminotransferase 26 U/L (0-41); Albumin Level 2.2 g/dL (3.5-5.2); Alkaline Phosphatase 158 IU/L (40-130); Blood Urea Nitrogen 58 mg/dL (8-23); Calcium 8.6 mg/dL (8.5-10.5); Carbon Dioxide 20 mmol/L (22-29); Chloride 99 mmol/L (98-107); Glucose 167 mg/dL (65-115); Osmolality Calculated 296 mOsm/kg (285-295); Sodium 133 mmol/L (136-145); Total Bilirubin 0.7 mg/dL (0.15-1.2); Total Protein 6.2 g/dL (6.6-8.7)
[2021-07-29 21:39] LABS: Lactate (Lactic Acid level) 2.7 mmol/L (0.5-2.2)
[2021-07-29 21:43] LABS: Anion Gap 18.3 (5-19); Aspartate Amino Transferase 45 U/L (0-40); Potassium 4.3 mmol/L (3.5-5.1)
[2021-07-29 21:44] LABS: Creatine Phosphokinase 324 U/L (39-308)
[2021-07-29 22:08] LABS: Glucose Point of Care 154 mg/dL (70-110)
[2021-07-29 22:08] LABS: Glucose Point of Care 157 mg/dL (70-110)
[2021-07-29 22:08] LABS: Glucose Point of Care 144 mg/dL (70-110)
[2021-07-30] VITALS (51 sets, daily range): BP systolic 92–148; BP diastolic 54–108; PULSE 85–164; RESP 20–53; TEMP 36.7–37.7; O2SAT 86–99
[2021-07-30 02:21] LABS: Glucose Point of Care 179 mg/dL (70-110)
[2021-07-30 02:21] LABS: Glucose Point of Care 148 mg/dL (70-110)
[2021-07-30 02:21] LABS: Glucose Point of Care 166 mg/dL (70-110)
[2021-07-30 02:21] LABS: Glucose Point of Care 139 mg/dL (70-110)
[2021-07-30] MEDS: piperacillin-tazobactam 3.375 GM in sodium chloride 0.9% (plus) 50 ML IV ×2 (04:04→16:16)
[2021-07-30 04:20] LABS: Basophils # 0.2 10^3/uL (0.0-0.1); Basophils % 0.9 %; Hematocrit 41.6 % (42.0-52.0); Hemoglobin 14.2 g/dL (11.7-16.6); Lymphocytes # 0.8 10^3/uL (0.8-4.8); Lymphocytes % 3.9 %; Mean Corpuscular HGB Conc 34.1 g/dL (30.0-36.0); Mean Corpuscular Hemoglobin 28.8 pg (28.0-34.0); Mean Corpuscular Volume 84.4 fl (80-94); Mean Platelet Volume 13.3 fL (7.4-10.4); Monocytes # 0.6 10^3/uL (0.2-0.9); Monocytes % 2.7 %; Neutrophils # 18.42 10^3/uL (1.8-7.7); Neutrophils % 91.7 %; Nucleated Red Blood Cells % 0 %; Platelet Count 68 10^3/cmm (130-400); Red Blood Count 4.93 10^6/uL (4.1-5.3); White Blood Count 20.1 10^3/uL (4.0-10.0)
[2021-07-30 04:38] LABS: Alanine Aminotransferase 25 U/L (0-41); Albumin Level 2.2 g/dL (3.5-5.2); Alkaline Phosphatase 166 IU/L (40-130); Anion Gap 16.7 (5-19); Aspartate Amino Transferase 35 U/L (0-40); Blood Urea Nitrogen 66 mg/dL (8-23); Calcium 8.7 mg/dL (8.5-10.5); Carbon Dioxide 21 mmol/L (22-29); Chloride 99 mmol/L (98-107); Creatine Phosphokinase 188 U/L (39-308); Globulin 3.7 g/dL (1.3-4.6); Glucose 161 mg/dL (65-115); Magnesium 2.1 mg/dL (1.7-2.3); Osmolality Calculated 299 mOsm/kg (285-295); Potassium 3.7 mmol/L (3.5-5.1); Sodium 133 mmol/L (136-145); Total Bilirubin 0.6 mg/dL (0.15-1.2); Total Protein 5.9 g/dL (6.6-8.7)
[2021-07-30 04:42] LABS: Slide Review Slide Review Perform
[2021-07-30] MEDS: vancomycin 1,500 MG/300 ML PIGGYBACK 150 MG IV (05:29)
[2021-07-30] MEDS: heparin 5,000 unit/mL INJ 1 mL 5000 UNIT SUBCUT (05:30)
[2021-07-30 06:39] LABS: Glucose Point of Care 155 mg/dL (70-110)
[2021-07-30 06:39] LABS: Glucose Point of Care 148 mg/dL (70-110)
[2021-07-30 06:39] LABS: Glucose Point of Care 158 mg/dL (70-110)
[2021-07-30 06:39] LABS: Glucose Point of Care 163 mg/dL (70-110)
--- NOTE | 2021-07-30 07:00 | XRR_ITS ---
PROCEDURE INFORMATION: Exam: XR Chest Exam date and time: 07/30/2021 6:43 AM Age: 76 years old Clinical indication: Dyspnea; Patient HX: SOB; Additional info: Hypoxia TECHNIQUE: Imaging protocol: XR of the chest. Views: 1 view. Total images: 432 COMPARISON: CR (CHEST, ) 07/29/2021 2:18 AM FINDINGS: Lungs: Nonspecific left lung base opacity favors atelectasis or pneumonia. Pleural spaces: Unremarkable. No pleural effusion. No pneumothorax. Heart/Mediastinum: Upper normal heart size noted. Bones/joints: Osseous structures are unchanged from the prior exam. XR/XR chest 1V portable [id number] IMPRESSION: Nonspecific left lung base opacity favors atelectasis or pneumonia.
[2021-07-30 07:22] LABS: Glucose Point of Care 149 mg/dL (70-110)
[2021-07-30] MEDS: topiramate 100 mg Tablet 50 MG PO (07:52)
[2021-07-30] MEDS: dilTIAZem ER (24HR) 180 mg Capsule PO (07:53)
[2021-07-30] MEDS: duloxetine 30 mg Capsule PO (07:54)
[2021-07-30] MEDS: pantoprazole DR 40 mg Tablet PO (07:55)
[2021-07-30 08:17] LABS: Glucose Point of Care 164 mg/dL (70-110)
--- NOTE | 2021-07-30 08:19 | PM.CONSULT ---
Providers/Reason For Consult Consulting Physician/Specialty*: Armaan Spann MD; orthopedic surgery Reason for Consult*: Right lower extremity swelling/cellulitis Attending Physician: Aba Carreon MD Primary Care Provider: Domingo Lazcano DO History of Present Illness History of Present Illness Jorge Tomlin is a 76 year old male admitted yesterday with generalized weakness and leukocytosis. He was admitted to the ICU to rule out sepsis. I was consulted with concerns of right lower extremity involvement and possible abscess versus compartment syndrome. The patient is hard of hearing, confused and really cannot give any real history. Review of Systems General: Reports: ROS unobtainable due to medical condition Medications/Allergies Home Medications Medication Instructions Recorded Confirmed Last Taken Type duloxetine 30 mg capsule,delayed 30 mg PO BID #60 cap 04/07/19 07/29/21 Unknown Rx release (Cymbalta) furosemide 40 mg tablet (Lasix) 40 mg PO DAILY PRN #30 tab 04/07/19 07/29/21 Unknown Rx valsartan 160 mg tablet 160 mg PO DAILY #30 tab 04/07/19 07/29/21 Unknown Rx topiramate 100 mg tablet (Topamax) 100 mg PO BID #60 tab 04/22/19 07/29/21 Unknown Rx alogliptin 12.5 mg tablet 12.5 mg PO DAILY 07/29/21 07/29/21 Unknown History aspirin 81 mg tablet,delayed 81 mg PO DAILY 07/29/21 07/29/21 Unknown History release cetirizine 5 mg tablet 5 mg PO DAILY PRN 07/29/21 07/29/21 Unknown History cholecalciferol (vitamin D3) 25 25 mcg PO DAILY 07/29/21 07/29/21 Unknown History mcg (1,000 unit) tablet (Vitamin D3) diltiazem HCl 240 mg 240 mg PO QAM 07/29/21 07/29/21 Unknown History capsule,extended release 24 hr docusate sodium 100 mg capsule 100 mg PO DAILY PRN 07/29/21 07/29/21 Unknown History (Colace) glipizide 5 mg tablet 2.5 mg PO DAILY 07/29/21 07/29/21 Unknown History metformin 500 mg tablet 1,000 mg PO BID 07/29/21 07/29/21 Unknown History tizanidine 4 mg tablet 2 mg PO TID PRN 07/29/21 07/29/21 Unknown History Allergies Allergy/AdvReac Type Severity Reaction Status Date / Time pravastatin AdvReac Leg cramps Verified 07/29/21 12:04 Current Medications Generic Name Dose Route Start Last Admin Trade Name Freq PRN Reason Stop Dose Admin Diltiazem HCl 180 mg 07/29/21 09:00 07/30/21 07:53 Diltiazem Er (24hr) 180 Mg Capsule PO 180 mg DAILY PIETER Administration Duloxetine HCl 30 mg 07/29/21 09:00 07/30/21 07:54 Duloxetine 30 Mg Capsule PO 30 mg BID PIETER Administration Heparin Sodium (Porcine) 5,000 unit 07/29/21 05:45 07/30/21 05:30 Heparin 5,000 Unit/Ml Inj 1 Ml SUBCUT 5,000 unit Q12H PIETER Administration Vancomycin/PEG/NADA/Lysine/Water 1,500 mg in 300 mls @ 150 mls/hr 07/30/21 06:00 07/30/21 05:29 Vancocin IV 150 mls/hr Q24H PIETER Administration Sodium Chloride 1,000 mls @ 75 mls/hr 07/29/21 05:30 07/29/21 06:21 Sodium Chloride 0.9% IV 75 mls/hr .[id number] PIETER Administration Pantoprazole Sodium 40 mg 07/29/21 12:05 07/30/21 07:[address] 40 Mg Tablet PO 40 mg DAILY PIETER Administration Topiramate 50 mg 07/29/21 18:00 07/30/21 07:52 Topiramate 100 Mg Tablet PO 50 mg BID PIETER Administration PFSH Acute PFSH: Medical History Hypertension ALEX on CPAP Seasonal allergic rhinitis Type 2 diabetes mellitus with diabetic polyneuropathy Vitamin D insufficiency Surgical History History of basal cell carcinoma (BCC) excision (~06/2016) History of cataract removal with insertion of prosthetic lens (~2016) RIGHT: 05/13/16 LEFT: 06/03/16 History of lumbosacral spine surgery L4-L5 Family History Mother , AT AGE 93 Diabetes Stroke Cancer melanoma Father , AT AGE 86 Diabetes Social History Smoking and tobacco status: former smoker Alcohol intake: never Marital status: Current occupational status: retired History of recent travel: No Vitals/I&O/Wt Last Vital Signs Temp 98.7 F 07/30/21 00:00 Pulse 123 H 07/30/21 06:00 Resp 25 H 07/30/21 04:30 BP 116/68 07/30/21 04:30 Pulse Ox 92 07/30/21 04:30 07/29/21 07/30/21 07/30/21 22:59 06:59 14:59 Intake Total 90.17 / 165.539 130.627 / 296.166 208.168 / 208.168 Output Total 50 / 300 500 / 800 Balance 40.17 / -134.461 -369.373 / -503.834 208.168 / 208.168 Weight last 48 hrs Weight 388 lb 4.8 oz Weight 275 lb Physical Exam Narrative: Patient is a morbidly obese male supine in bed. He will respond to simple commands but did but does not answer questions appropriately. He has large legs consistent with his size He has some swelling in both legs. There is dusky erythema over the right leg distal to the knee. There is no palpable tenderness or fluctuance I can appreciate in the right leg. He will flex extend his knees and his ankle on command. He has a cold forefeet bilaterally. Sensation seems to be grossly intact as best I can tell Data : 07/30/21 03:37 07/30/21 03:37 Micro: Microbiology 07/30/21 03:37 Blood Culture - Preliminary Blood SPECIMEN COLLECTED 07/29/21 04:05 Blood Culture - Preliminary Blood Strep agalactiae - (group b) 07/29/21 04:17 Blood Culture - Preliminary Blood Strep agalactiae - (group b) Other CT: Radiologist's impression: I reviewed CT angiogram report of the bilateral lower extremity and specifically personally interpreted the right lower extremity evidence of abscess or other deep infection or necrosis. There is superficial changes in the skin and subcutaneous tissues but no deep abscesses I can see and no deep evidence of necrotic tissue. Additional interpretation by the radiologist include moderate disease in the right anterior tibial and posterior tibial arteries with runoff in the foot. He has severe multifocal disease in the left anterior tibial with no visible runoff the left foot. 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 I cannot exclude some component of a cellulitis. Certainly there is no evidence of compartment syndrome no deep pathology to suggest surgery to be beneficial. He has certain significant peripheral vascular disease but adequate runoff into the right foot. I have nothing surgical to offer the care of this patient. Status: Acute Coding Level of Care Code Acute System Support Technician for [facility] [employer] Diagnoses Chronic venous stasis dermatitis of right lower extremity I87.2 Cellulitis of right lower extremity L03.115
[2021-07-30] MEDS: amiodarone 200 mg Tablet 400 MG PO (08:54)
[2021-07-30] MEDS: insulin glargine 100 units/1 mL 5 UNIT SUBCUT ×2 (09:05→21:03)
--- NOTE | 2021-07-30 09:46 | PC.CHAP ---
Pastoral Care Encounter/Spiritual Assessment Type of Contact [] Declined cook's assistant visit [] Patient/Family/Request visit [] Outpatient visit [] Follow-up visit [] Physician referral [] Code/Alert [x] Routine visit [] Staff referral [] Actively dying [x] Patient sleeping [] Family support [] [] Out of room [] Palliative care [] [] Receiving care in room [] Pre-surgical visit [] Trauma [] Long length of stay [x] ICU visit [] Other: Relational/Emotional Strength [] Patient feels connected with others/family/visitors/staff [] Distress [] Loneliness/isolation [] Abandonment Spirituality of Patient [] Person of Marisa [] Attends Denominational of their Marisa [] Believes in Prayer [] Reads Bible or Orthodoxy materials [] There are Spiritual issues to be addressed Soils Analyst Interventions [x] Prayer [] Active listening [] Non-anxious presence [] Spiritual/emotional support [] Crisis/trauma care [] Spiritual counseling [] Bereavement support [] Provided bereavement packet [] Provided Bible/devotional materials [] Provided toy/stuffed animal, coloring book to patient or family member [] Provided Communion [] Anointing/[place]ash [] Salvation [x] Completed spiritual assessment [] Other: Impact on Illness or Injury [] Angry [] Fearful [] Anxious [] Often cries [] Exhaustion [] Unable to work [] Unable to attend episcopal [] Unable to walk/stand [] Unable to read [] Unable to drive [] Unable to eat/drink [] Unable to sleep [] Unable to be with family [] Patient intubated [] Other: Summary Time spent with patient
[2021-07-30 10:51] LABS: Glucose Point of Care 245 mg/dL (70-110)
--- NOTE | 2021-07-30 11:16 | ECG_ITS ---
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 Measurements Intervals [place] Rate: 103 P: [place]: QRS: -27 QRSD: 98 T: 0 QT: 321 QTc: 420 Interpretive Statements ATRIAL FIBRILLATION WITH RAPID VENTRICULAR RESPONSE INFERIOR MYOCARDIAL INFARCTION , PROBABLY OLD [40+ ms Q WAVE AND/OR ST/T ABNORMALITY IN II/aVF] Compared to ECG 07/30/2021 14:29:12 No significant changes Electronically Signed On 07-30-2021 18:29:05 CDT by Michael Burton M.D. [id number]
[2021-07-30] MEDS: insulin lispro 100 unit/1 mL SUBCUT ×3 (11:31→21:03)
[2021-07-30] MEDS: aspirin 81 mg EC Tablet PO (11:32)
[2021-07-30 11:53] LABS: LAB Peripheral Smear Sent for Review
[2021-07-30 12:09] LABS: Basophils % 0.1 %; Hematocrit 43.8 % (42.0-52.0); Lymphocytes # 0.6 10^3/uL (0.8-4.8); Lymphocytes % 2.8 %; Mean Corpuscular HGB Conc 34.2 g/dL (30.0-36.0); Mean Corpuscular Hemoglobin 29.6 pg (28.0-34.0); Mean Corpuscular Volume 86.6 fl (80-94); Monocytes # 0.4 10^3/uL (0.2-0.9); Monocytes % 2.2 %; Neutrophils # 18.73 10^3/uL (1.8-7.7); Neutrophils % 94.3 %; Nucleated Red Blood Cells % 0 %; Platelet Count 80 10^3/cmm (130-400); Red Blood Count 5.06 10^6/uL (4.1-5.3); Red Cell Distribution Width 13.4 % (12.1-15.1); White Blood Count 19.9 10^3/uL (4.0-10.0)
[2021-07-30 12:10] LABS: Positive M 0
[2021-07-30 12:20] LABS: Troponin(5th) Baseline 42 ng/L (0-15)
[2021-07-30 12:22] LABS: Erythrocyte Sedimentation Rate 40 mm/hr (0-10)
[2021-07-30 12:47] LABS: Absolute Neutrophil 18.5 10^3/cmm (1.4-6.5); Absolute Segmented Neutrophil 14.3 10/cmm (1.6-7.1); Band Neutrophils Absolute 4.2 10^3/cmm (0.0-1.2); Eosinophils 0 %; Lymphocytes 3 %; Lymphocytes Absolute 0.8 10^3/cmm (1.2-3.4); Monocytes Absolute 0.4 10^3/cmm (0.1-0.6); Platelet Estimate Decreased (Normal); Segmented Neutrophils 72 %; Total Cells Counted 100 (0-100)
[2021-07-30 12:48] LABS: Giant Platelets 1+
[2021-07-30 12:52] LABS: Polychromasia Trace
[2021-07-30 12:54] LABS: C Reactive Protein 484.4 mg/L (0.0-4.9); Toxic Vacuolation 1+
[2021-07-30 13:03] LABS: Slide Review Slide Review Perform
--- NOTE | 2021-07-30 13:16 | ECG_ITS ---
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 Measurements Intervals [place] Rate: 117 P: [place]: QRS: -46 QRSD: 106 T: 31 QT: 309 QTc: 432 Interpretive Statements ATRIAL FIBRILLATION WITH RAPID VENTRICULAR RESPONSE PATTERN CONSISTENT WITH PULMONARY DISEASE INFERIOR MYOCARDIAL INFARCTION , PROBABLY OLD [40+ ms Q WAVE AND/OR ST/T ABNORMALITY IN II/aVF] Compared to ECG 07/30/2021 11:51:54 No significant changes Electronically Signed On 07-30-2021 18:35:15 CDT by Michael Burton M.D. [id number]
[2021-07-30 14:12] LABS: Troponin 5 2HR 37.83 ng/L (0-15)
[2021-07-30 14:22] LABS: Troponin 5 2HR Delta -4.17 ABS# (0-10)
--- NOTE | 2021-07-30 14:36 | PM.PN ---
Subjective Subjective: Patient was seen this morning he is alert to person, not to place, not to time, he does follow commands, but remains confused, he has complaints of lower back pain, no facial droop, no slurring of his words, currently in atrial fibrillation, heart rates in the 140s, on 2 L, he can move his right lower extremity, denies any pain, afebrile overnight Vitals/I&O/Wt Last Vital Signs Temp 99.1 F 07/30/21 11:40 Pulse 117 H 07/30/21 13:55 Resp 53 H 07/30/21 08:00 BP 111/76 07/30/21 08:00 Pulse Ox 93 07/30/21 08:00 07/29/21 07/30/21 07/30/21 22:59 06:59 14:59 Intake Total 90.17 / 165.539 130.627 / 296.166 851.168 / 851.168 Output Total 50 / 300 500 / 800 Balance 40.17 / -134.461 -369.373 / -503.834 851.168 / 851.168 Weight last 48 hrs Weight 176.13 kg Weight 124.738 kg Physical Exam Const: COMMON NORMALS: no acute distress EXAM LIMITATIONS: altered mental status ORIENTATION/CONSCIOUSNESS: Yes awake, Yes oriented to person and Yes confused; not oriented to place and not oriented to time OTHER: Alert to person, not to place, not to time Resp: COMMON NORMALS: normal respiratory effort, No retractions, No use of accessory muscles and clear to auscultation bilaterally AUSCULTATION: clear to auscultation bilaterally Cardio: COMMON NORMALS: S1 normal heart sound present and S2 normal heart sound present RATE: tachycardic RHYTHM: abnormal rhythm HEART SOUNDS: S1 normal heart sound present and S2 normal heart sound present GI: COMMON NORMALS: Normal to inspection, nondistended, normoactive bowel sounds present, Soft to palpation and non-tender PALPATION: Yes Soft to palpation Extremity: NARRATIVE EXTREMITY EXAM: Right lower extremity, 1+ pitting edema, erythema, mid jimenez, extending down to the ankle, DP PT pulses barely palpable, capillary reflex present Neuro: SENSORIUM/ORIENTATION: Yes oriented to person, No oriented to place and No oriented to time Data : 07/30/21 11:42 07/30/21 03:37 Micro: Microbiology 07/29/21 04:17 Blood Culture - Preliminary Blood Strep agalactiae - (group b) 07/30/21 03:37 Blood Culture - Preliminary Blood SPECIMEN COLLECTED 07/29/21 04:05 Blood Culture - Preliminary Blood Strep agalactiae - (group b) A&P Assessment and plan (1) SIRS (systemic inflammatory response syndrome): Possible severe sepsis with lactic acidosis, SHREE, acute encephalopathy, with leukocytosis 24.9, tachycardia 115. Afebrile. He is coughing, although no obvious pneumonia on chest x-ray. Possible pulmonary source, possible atypical infection. We will also check COVID-19 PCR. Possible urinary infection, 5-10 RBC, 5-10 WBC. 0-4 squamous pleural cells. Negative nitrates. Assessed with CT abdomen pelvis renal stone protocol. No hydronephrosis noted. Questionable exophytic poorly visualized renal masses in the left kidney. Will need further follow-up later. Definitely has cellulitis of right lower extremity. Additionally obtain duplex of same extremity. Follow-up blood cultures. Empirically continue Zosyn, vancomycin at this time. Lactic acid recheck, slightly better, but not significantly improved, at 6. Unknown prior history of liver disease. Does have alkaline phosphatase elevation as well, which has been rising. Noted upper quadrant pain. Other liver parameters normal. Will obtain limited hepatobiliary ultrasound as well to assess possibility (although lower likelihood) of hepatobiliary infection. Assess echogenicity of the liver. Unknown if any history of liver fibrosis or cirrhosis. This could contribute to lactic acidosis, ketoacidosis. Check topiramate level. Add PPI prophylaxis. Status: Acute (2) Acidosis, lactic: Possible severe sepsis as above. Unknown if prior liver disease. Assess limited hepatobiliary ultrasound with management as above. Does have INR abnormality, 1.34, not on anticoagulation. Status: Acute (3) Acute kidney injury superimposed on CKD: Possible severe sepsis as above. Possible SHREE secondary sepsis. Possible secondary to NSAID, valsartan. Hold these medications. No hydronephrosis noted on CT renal stone. Received fluid challenge, hold further IVF. Adjusted topiramate dose. Track I&O and weights. Status: Acute (4) Cellulitis: Right lower extremity between knee and ankle dull redness, warmth. RLE> LLE. Assess venous duplex for possibility of DVT. Able to move right foot without problems. No pain. Findings not suggestive of compartment syndrome at the moment. Status: Acute (5) Hyperglycemia: Severe hyperglycemia in the 500s. Also ketones positive in urine. Possible early ketoacidosis cannot be excluded, the pH normal, but makes disorder as does have anion gap acidosis. Possible DKA cannot be excluded. Insulin drip. IV hydration. Follow-up electrolytes, maintaining potassium. Status: Acute (6) Acute encephalopathy: Acute metabolic encephalopathy with possible severe sepsis, with also other abnormalities including SHREE, possible toxic encephalopathy with SHREE and tizanidine or other medications. Hold this medication for now. Management Conditions as above. Status: Acute (7) Rhabdomyolysis: Mild rhabdomyolysis, CK 589. Reassess CK. Status: Acute (8) Renal mass, right: ?Exophytic subcentimeter masses from the RIGHT kidney cannot be further characterized on this unenhanced study due to their small size and no contrast. Will need follow-up after acute illness Status: Acute (9) Hypertension: Blood pressures fluctuating somewhat difficult to measure due to body habitus. Monitor blood pressures for now. Valsartan on hold due to SHREE. Status: Chronic Qualifiers: Hypertension type: essential hypertension Qualified Code(s): I10 - Essential (primary) hypertension (10) Metabolic acidosis: Anion gap anabolic acidosis, lactic acidosis, possible ketoacidosis. Status: Acute (11) Sinus tachycardia: In setting of possible severe sepsis, multiple metabolic abnormalities. Additional assessment as above. Status: Acute (12) ALEX on CPAP: Status: Chronic (13) Type 2 diabetes mellitus with diabetic polyneuropathy: Does not appear to be on metformin. Oral hypoglycemics on hold. Status: Chronic Qualifiers: Diabetes mellitus senior living insulin use: with senior living use Qualified Code(s): E11.42 - Type 2 diabetes mellitus with diabetic polyneuropathy; Z79.4 - custodial (current) use of insulin (14) Bacteremia due to group B Streptococcus: Status: Acute (15) Peripheral vascular disease: Status: Acute (16) Atrial fibrillation with RVR: Status: Acute Plan Troponin level elevated: Mild-moderate troponin elevation, denies any chest pain or pressure. Atrial fibrillation is reported on one of the EKGs, although there are P waves there. Possible prior GA with Q waves in 2, 3 and aVF. Will need further cardiac restratification once he is more stable. For now we will assess with TTE. Possible pulmonary edema: Hold further IVF. Assess TTE. Continue oxygen support and monitor oxygenation. Resume Lasix if needed. CXR in AM. Discussed his condition with one of his sisters over the phone, he understands Gilma is said to be his power of personal injury attorney of healthcare, but on my return visit to the room had stepped out, will further discuss with her when able. 76 year old male with past medical history of hypertension diabetes obstructive sleep apnea resident of [place] Came in with chief complaint of generalized weakness, as well as back pain. Group B strep bacteremia -With acute encephalopathy -With SIRS, sepsis -With acute renal failure -With lactic acidosis -With NSTEMI Plan -Underlying source unclear, possible right lower extremity cellulitis -However will need a transesophageal echocardiogram -Once more stable, will discuss with cardiology about doing a transesophageal echocardiogram -For now continue vancomycin, Zosyn, -Follow repeat blood cultures -Monitor mentation -Monitor urine output -Full code -Heparin for DVT prophylaxis currently on hold SCDs Acute thrombocytopenia -Unlikely to be heparin-induced thrombocytopenia -Likely pseudothrombocytopenia from platelet clumping, l also related to sepsis -Repeat CBC, HIT panel, peripheral smear, haptoglobin A. fib with RVR -Likely secondary to underlying sepsis and SIRS -Add amiodarone drip -Serial EKGs, troponins Acute renal failure, SHREE, rhabdomyolysis Lactic acidosis as above NSTEMI as above Deconditioning, bedbound, repositioning Peripheral vascular disease 1. Moderate disease in the right anterior tibial and posterior tibial arteries with visible runoff to the foot. 2. Calcified plaque with moderate focal stenosis in the left popliteal artery. 3. Severe multifocal disease in the left anterior tibial artery with no visible runoff to the foot. 4. Subcutaneous soft tissue edema or cellulitis in the right lower leg, ankle, and dorsal foot.? -Monitor DP PT pulses -Will will likely require intervention at some point Type 2 diabetes mellitus, with hyperglycemia -Stop insulin drip, transition to subcu insulin, with Lantus Cellulitis, as above ALEX, CPAP Attestations Medical Necessity Statement*: Patient requires hospitalization, inpatient, greater than 2 midnights, for A. 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 [employer] Diagnoses SIRS (systemic inflammatory response syndrome) R65.10 Acidosis, lactic E87.2 Acute kidney injury superimposed on CKD N17.9; N18.9 Cellulitis L03.90 Hyperglycemia R73.9 Acute encephalopathy G93.40 Rhabdomyolysis M62.82 Renal mass, right N28.89 Hypertension I10 Hypertension type: essential hypertension Metabolic acidosis E87.2 Sinus tachycardia R00.0 ALEX on CPAP G47.33; Z99.89 Type 2 diabetes mellitus with diabetic polyneuropathy E11.42; Z79.4 Diabetes mellitus senior living insulin use: with local 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
[2021-07-30 17:02] LABS: Glucose Point of Care 287 mg/dL (70-110)
--- NOTE | 2021-07-30 17:16 | ECG_ITS ---
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 Measurements Intervals [place] Rate: 124 P: [place]: QRS: -29 QRSD: 107 T: 0 QT: 305 QTc: 438 Interpretive Statements ATRIAL FIBRILLATION WITH RAPID VENTRICULAR RESPONSE INFERIOR MYOCARDIAL INFARCTION , PROBABLY OLD [40+ ms Q WAVE AND/OR ST/T ABNORMALITY IN II/aVF] Compared to ECG 07/29/2021 09:41:59 Ectopic atrial tachycardia, multifocal no longer present Myocardial infarct finding still present Electronically Signed On 07-30-2021 18:35:55 CDT by Michael Burton M.D. [email or web address] ([email or web address])[id number]
[2021-07-30 17:33] LABS: ABG PCO2 29.7 mmHg (35-45); Arterial Blood Gas Hematocrit 45.3 % (42-52); Blood Gas Allen Test Pos; Blood Gas Sample Site Radial, right; Blood Gas Sample Type Arterial; HCO3 ABG 18.5 mmol/L (22-26)
[2021-07-30 19:27] LABS: Troponin 5 6HR 36.39 ng/L (0-15)
[2021-07-30 19:28] LABS: Troponin 5 6HR Delta -5.61 ng/L (0-12)
[2021-07-30 21:01] LABS: Glucose Point of Care 357 mg/dL (70-110)
[2021-07-31] VITALS (48 sets, daily range): BP systolic 109–169; BP diastolic 68–118; PULSE 78–104; RESP 13–30; TEMP 36.9–37.3; O2SAT 93–100
[2021-07-31] MEDS: piperacillin-tazobactam 3.375 GM in sodium chloride 0.9% (plus) 50 ML IV ×4 (00:06→23:32)
[2021-07-31 03:46] LABS: ABG PCO2 33.6 mmHg (35-45); Arterial Blood Gas Hematocrit 42.3 % (42-52); Base Excess ABG -3.4 mmol/L (-2.0-2.0); Blood Gas Allen Test Pos; Blood Gas Sample Site Radial, right; Blood Gas Sample Type Arterial; HCO3 ABG 20.7 mmol/L (22-26); Oxygen Device BIPAP
[2021-07-31 04:58] LABS: Basophils # 0.1 10^3/uL (0.0-0.1); Basophils % 0.5 %; Hematocrit 40.2 % (42.0-52.0); Hemoglobin 13.8 g/dL (11.7-16.6); Lymphocytes % 4.8 %; Mean Corpuscular HGB Conc 34.3 g/dL (30.0-36.0); Mean Corpuscular Hemoglobin 29.5 pg (28.0-34.0); Mean Corpuscular Volume 85.9 fl (80-94); Mean Platelet Volume 13.1 fL (7.4-10.4); Monocytes # 1.3 10^3/uL (0.2-0.9); Monocytes % 6.3 %; Neutrophils # 18.13 10^3/uL (1.8-7.7); Neutrophils % 87.8 %; Nucleated Red Blood Cells % 0 %; Platelet Count 55 10^3/cmm (130-400); Red Blood Count 4.68 10^6/uL (4.1-5.3); Red Cell Distribution Width 13.4 % (12.1-15.1); White Blood Count 20.6 10^3/uL (4.0-10.0)
[2021-07-31 05:09] LABS: INR 0.97 (0.8-1.2)
[2021-07-31 05:14] LABS: Lactate (Lactic Acid level) 1.9 mmol/L (0.5-2.2); Vancomycin Trough 12.2 ug/mL (10-15)
[2021-07-31 05:15] LABS: Alanine Aminotransferase 22 U/L (0-41); Albumin Level 2.3 g/dL (3.5-5.2); Alkaline Phosphatase 134 IU/L (40-130); Anion Gap 16.8 (5-19); Aspartate Amino Transferase 35 U/L (0-40); Calcium 8.9 mg/dL (8.5-10.5); Carbon Dioxide 21 mmol/L (22-29); Chloride 97 mmol/L (98-107); Globulin 3.7 g/dL (1.3-4.6); Glucose 371 mg/dL (65-115); Osmolality Calculated 312 mOsm/kg (285-295); Potassium 3.8 mmol/L (3.5-5.1); Sodium 131 mmol/L (136-145); Total Bilirubin 0.4 mg/dL (0.15-1.2)
[2021-07-31 05:18] LABS: Slide Review Slide Review Perform
[2021-07-31 05:20] LABS: Blood Urea Nitrogen 82 mg/dL (8-23)
[2021-07-31 05:25] LABS: NT Pro B Type Natriuretic Pept 2356 pg/mL (0-450); Procalcitonin 30.78 ng/mL (0-0.5)
[2021-07-31 05:36] LABS: Magnesium 2.3 mg/dL (1.7-2.3); Phosphorus 3.9 mg/dL (2.5-4.5)
[2021-07-31 05:37] LABS: Creatine Phosphokinase 566 U/L (39-308)
[2021-07-31] MEDS: vancomycin 1,500 MG/300 ML PIGGYBACK 150 MG IV (05:46)
[2021-07-31 05:48] LABS: C Reactive Protein 387.9 mg/L (0.0-4.9)
[2021-07-31 06:59] LABS: Glucose Point of Care 367 mg/dL (70-110)
--- NOTE | 2021-07-31 07:00 | XRR_ITS ---
PROCEDURE INFORMATION: Exam: XR Chest Exam date and time: 07/31/2021 4:24 AM Age: 76 years old Clinical indication: Shortness of breath; Additional info: SOB TECHNIQUE: Imaging protocol: Radiologic exam of the chest. Views: 1 view. Total images: 1 COMPARISON: CR XR chest 1V portable [id number] 07/30/2021 6:43 AM FINDINGS: Lungs: Left pulmonary opacity is again noted and appears unchanged from the prior exam. Pleural spaces: Unremarkable. No pleural effusion. No pneumothorax. Heart/Mediastinum: Heart size is stable when compared to the prior exam. Bones/joints: Osseous structures are unchanged from the prior exam. XR/XR chest 1V portable [id number] IMPRESSION: Left pulmonary opacity is again noted and appears unchanged from the prior exam.
[2021-07-31] MEDS: insulin lispro 100 unit/1 mL SUBCUT ×4 (07:49→22:43)
[2021-07-31] MEDS: insulin glargine 100 units/1 mL 5 UNIT SUBCUT (07:49)
[2021-07-31] MEDS: amiodarone 200 mg Tablet 400 MG PO ×2 (07:50→17:13)
[2021-07-31] MEDS: dilTIAZem ER (24HR) 180 mg Capsule PO (07:50)
[2021-07-31] MEDS: aspirin 81 mg EC Tablet PO (07:50)
[2021-07-31] MEDS: topiramate 100 mg Tablet 50 MG PO ×2 (07:50→17:13)
[2021-07-31] MEDS: duloxetine 30 mg Capsule PO ×2 (07:50→17:13)
[2021-07-31] MEDS: pantoprazole DR 40 mg Tablet PO (07:50)
[2021-07-31] MEDS: sodium chloride 0.9% 1,000 ML 50 ML IV (08:21)
[2021-07-31] MEDS: acetaminophen 325 mg Tablet 650 MG PO (09:13)
[2021-07-31 09:49] LABS: Glucose Point of Care 399 mg/dL (70-110)
--- NOTE | 2021-07-31 10:45 | PC.CHAP ---
Pastoral Care Encounter/Spiritual Assessment Type of Contact [] Declined hacksaw inspector visit [] Patient/Family/Request visit [] Outpatient visit [] Follow-up visit [] Physician referral [] Code/Alert [x] Routine visit [] Staff referral [] Actively dying [] Patient sleeping [] Family support [] [] Out of room [] Palliative care [] [x] Receiving care in room [] Pre-surgical visit [] Trauma [] Long length of stay [x] ICU visit [] Other: Relational/Emotional Strength [] Patient feels connected with others/family/visitors/staff [] Distress [] Loneliness/isolation [] Abandonment Spirituality of Patient [] Person of Marisa [] Attends Lutheran of their Marisa [] Believes in Prayer [] Reads Bible or Sabianist materials [] There are Spiritual issues to be addressed Manager Strategic Interventions [x] Prayer [] Active listening [] Non-anxious presence [] Spiritual/emotional support [] Crisis/trauma care [] Spiritual counseling [] Bereavement support [] Provided bereavement packet [] Provided Bible/devotional materials [] Provided toy/stuffed animal, coloring book to patient or family member [] Provided Communion [] Anointing/[place] [] Salvation [x] Completed spiritual assessment [] Other: Impact on Illness or Injury [] Angry [] Fearful [] Anxious [] Often cries [] Exhaustion [] Unable to work [] Unable to attend jehovah's witness [] Unable to walk/stand [] Unable to read [] Unable to drive [] Unable to eat/drink [] Unable to sleep [] Unable to be with family [] Patient intubated [] Other: Summary Time spent with patient
[2021-07-31 11:10] LABS: Glucose Point of Care 377 mg/dL (70-110)
--- NOTE | 2021-07-31 14:17 | P.PN_ITS ---
Subjective Subjective: Patient was seen this morning, his sister is at bedside, yesterday afternoon he had a episodes of drowsiness, difficult to arouse, this morning hemoglobin remains alert to person, not to place, not to time, he does follow commands, his sister tells me that he is much more alert this morning, nurses tell me that he had a poor appetite yesterday, but did have breakfast this morning, no fevers overnight he is on 2 L, his only complaint is back pain, he is currently at independent living at a local custodial, and his sister does not think he can go back he needs more assistance, Vitals/I&O/Wt Last Vital Signs Temp 98.5 F 07/31/21 12:00 Pulse 84 07/31/21 14:00 Resp 18 07/31/21 12:00 BP 116/70 07/31/21 12:00 Pulse Ox 98 07/31/21 12:00 07/30/21 07/31/21 07/31/21 22:59 06:59 14:59 Intake Total 265.237 / 1116.405 50 / 8032.048 9172.792 / 2712.792 Output Total 1540 / 1540 450 / 1990 Balance -1274.763 / -423.595 -400 / -840.822 5346.792 / 2712.792 Weight last 48 hrs Weight 179.532 kg Weight 176.13 kg Physical Exam Const: COMMON NORMALS: no acute distress GENERAL APPEARANCE: cooperative ORIENTATION/CONSCIOUSNESS: Yes awake; not oriented to place and not oriented to time Resp: COMMON NORMALS: normal respiratory effort, No retractions, No use of accessory muscles and clear to auscultation bilaterally AUSCULTATION: clear to auscultation bilaterally Cardio: COMMON NORMALS: regular rate, regular rhythm, S1 normal heart sound present and S2 normal heart sound present RATE: regular rate RHYTHM: regular rhythm HEART SOUNDS: S1 normal heart sound present and S2 normal heart sound present GI: COMMON NORMALS: Normal to inspection, nondistended, normoactive bowel sounds present, Soft to palpation and non-tender PALPATION: Yes Soft to palpation Extremity: COMMON NORMALS: no pedal edema Neuro: SENSORIUM/ORIENTATION: No oriented to place and No oriented to time Skin: NARRATIVE SKIN EXAM: Right lower extremity, minimal erythema, minimal edema, DP PT pulses barely palpable Data : 07/31/21 04:46 07/31/21 04:46 Micro: Microbiology 07/30/21 03:37 Blood Culture - Preliminary Blood NEGATIVE TO DATE 07/30/21 17:36 Blood Culture - Preliminary Blood SPECIMEN COLLECTED A&P Assessment and plan (1) SIRS (systemic inflammatory response syndrome): Possible severe sepsis with lactic acidosis, SHREE, acute encephalopathy, with leukocytosis 24.9, tachycardia 115. Afebrile. He is coughing, although no obvious pneumonia on chest x-ray. Possible pulmonary source, possible atypical infection. We will also check COVID-19 PCR. Possible urinary infection, 5-10 RBC, 5-10 WBC. 0-4 squamous pleural cells. Negative nitrates. Assessed with CT abdomen pelvis renal stone protocol. No hydronephrosis noted. Questionable exophytic poorly visualized renal masses in the left kidney. Will need further follow-up later. Definitely has cellulitis of right lower extremity. Additionally obtain duplex of same extremity. Follow-up blood cultures. Empirically continue Zosyn, vancomycin at this time. Lactic acid recheck, slightly better, but not significantly improved, at 6. Unknown prior history of liver disease. Does have alkaline phosphatase elevation as well, which has been rising. Noted upper quadrant pain. Other liver parameters normal. Will obtain limited hepatobiliary ultrasound as well to assess possibility (although lower likelihood) of hepatobiliary infection. Assess echogenicity of the liver. Unknown if any history of liver fibrosis or cirrhosis. This could contribute to lactic acidosis, ketoacidosis. Check topiramate level. Add PPI prophylaxis. Status: Acute (2) Acidosis, lactic: Possible severe sepsis as above. Unknown if prior liver disease. Assess limited hepatobiliary ultrasound with management as above. Does have INR abnormality, 1.34, not on anticoagulation. Status: Acute (3) Acute kidney injury superimposed on CKD: Possible severe sepsis as above. Possible SHREE secondary sepsis. Possible secondary to NSAID, valsartan. Hold these medications. No hydronephrosis noted on CT renal stone. Received fluid challenge, hold further IVF. Adjusted topiramate dose. Track I&O and weights. Status: Acute (4) Cellulitis: Right lower extremity between knee and ankle dull redness, warmth. RLE> LLE. Assess venous duplex for possibility of DVT. Able to move right foot without problems. No pain. Findings not suggestive of compartment syndrome at the moment. Status: Acute (5) Hyperglycemia: Severe hyperglycemia in the 500s. Also ketones positive in urine. Possible early ketoacidosis cannot be excluded, the pH normal, but makes disorder as does have anion gap acidosis. Possible DKA cannot be excluded. Insulin drip. IV hydration. Follow-up electrolytes, maintaining potassium. Status: Acute (6) Acute encephalopathy: Acute metabolic encephalopathy with possible severe sepsis, with also other abnormalities including SHREE, possible toxic encephalopathy with SHREE and tizanidine or other medications. Hold this medication for now. Management Conditions as above. Status: Acute (7) Rhabdomyolysis: Mild rhabdomyolysis, CK 589. Reassess CK. Status: Acute (8) Renal mass, right: ?Exophytic subcentimeter masses from the RIGHT kidney cannot be further characterized on this unenhanced study due to their small size and no contrast. Will need follow-up after acute illness Status: Acute (9) Hypertension: Blood pressures fluctuating somewhat difficult to measure due to body habitus. Monitor blood pressures for now. Valsartan on hold due to SHREE. Status: Chronic Qualifiers: Hypertension type: essential hypertension Qualified Code(s): I10 - Essential (primary) hypertension (10) Metabolic acidosis: Anion gap anabolic acidosis, lactic acidosis, possible ketoacidosis. Status: Acute (11) Sinus tachycardia: In setting of possible severe sepsis, multiple metabolic abnormalities. Additional assessment as above. Status: Acute (12) ALEX on CPAP: Status: Chronic (13) Type 2 diabetes mellitus with diabetic polyneuropathy: Does not appear to be on metformin. Oral hypoglycemics on hold. 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 Atrial fibrillation is reported on one of the EKGs, although there are P waves there. Possible prior AK with Q waves in 2, 3 and aVF. Will need further cardiac restratification once he is more stable. For now we will assess with TTE. Possible pulmonary edema: Hold further IVF. Assess TTE. Continue oxygen support and monitor oxygenation. Resume Lasix if needed. CXR in AM. Discussed his condition with one of his sisters over the phone, he understands Gilma is said to be his power of erisa attorney of healthcare, but on my return visit to the room had stepped out, will further discuss with her when able. 76 year old male with past medical history of hypertension diabetes obstructive sleep apnea resident of [place] Came in with chief complaint of generalized weakness, as well as back pain. Group B strep bacteremia -With acute encephalopathy -With SIRS, sepsis -With acute renal failure -With lactic acidosis -With NSTEMI Plan -Underlying likely right lower extremity cellulitis which is improving -Repeat blood cultures so far negative -However will need a transesophageal echocardiogram to rule out endocarditis -Once more stable, will discuss with cardiology about doing a transesophageal echocardiogram -For now continue vancomycin, Zosyn, -Follow repeat blood cultures -Monitor mentation -Monitor urine output -Full code -SCDs and heparin for DVT prophylaxis Acute thrombocytopenia -Unlikely to be heparin-induced thrombocytopenia -Likely pseudothrombocytopenia from platelet clumping, l also related to sepsis -Follow HIT panel, peripheral smear A. fib with RVR -Likely secondary to underlying sepsis and SIRS -Heart rates under better control stop amiodarone drip, continue p.o. amiodarone -Hold off on heparin given thrombocytopenia -Serial EKGs, troponins Acute renal failure, SHREE, rhabdomyolysis -Elevated BUN, likely secondary dehydration, IV fluids Lactic acidosis as above NSTEMI as above Deconditioning, bedbound, repositioning Peripheral vascular disease 1. Moderate disease in the right anterior tibial and posterior tibial arteries with visible runoff to the foot. 2. Calcified plaque with moderate focal stenosis in the left popliteal artery. 3. Severe multifocal disease in the left anterior tibial artery with no visible runoff to the foot. 4. Subcutaneous soft tissue edema or cellulitis in the right lower leg, ankle, and dorsal foot.? -Monitor DP PT pulses -Will will likely require intervention at some point Type 2 diabetes mellitus, with hyperglycemia -Elevated blood sugars increase Lantus to 10 needs daily, high-dose sliding scale Cellulitis, as above ALEX, CPAP Attestations Medical Necessity Statement*: ,Patient requires hospitalization for acute encephalopathy, sepsis secondary to cellulitis, A. 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
[2021-07-31] MEDS: heparin 5,000 unit/mL INJ 1 mL 5000 UNIT SUBCUT (17:12)
[2021-07-31] MEDS: insulin glargine 100 units/1 mL 10 UNIT SUBCUT (17:20)
[2021-07-31 17:23] LABS: Glucose Point of Care 358 mg/dL (70-110)
--- NOTE | 2021-07-31 20:09 | PM.CONSULT ---
Providers/Reason For Consult Consulting Physician/Specialty*: CINDY Johnson MD/cardiology Reason for Consult*: To perform a BERNARDA to rule out endocarditis Requesting Physician: Dr. Carreon Attending Physician: Aba Carreon MD Primary Care Provider: Domingo Lazcano DO History of Present Illness History of Present Illness Jorge Tomlin is a 76 year old male is admitted to the hospital with complaints of generalized fatigue/weakness. Blood culture grew group B streptococci. Patient has elevated white cell count. Source of infection is not known at this point. A BERNARDA was requested to rule out endocarditis. Patient is a very poor historian. He is not able to give any history. Answers to questions by yes or no. Denies any chest pain or epigastric pain no history for dysphagia. No history for GI bleed. Medications/Allergies Home Medications Medication Instructions Recorded Confirmed Last Taken Type duloxetine 30 mg capsule,delayed 30 mg PO BID #60 cap 04/07/19 07/29/21 Unknown Rx release (Cymbalta) furosemide 40 mg tablet (Lasix) 40 mg PO DAILY PRN #30 tab 04/07/19 07/29/21 Unknown Rx valsartan 160 mg tablet 160 mg PO DAILY #30 tab 04/07/19 07/29/21 Unknown Rx topiramate 100 mg tablet (Topamax) 100 mg PO BID #60 tab 04/22/19 07/29/21 Unknown Rx alogliptin 12.5 mg tablet 12.5 mg PO DAILY 07/29/21 07/29/21 Unknown History aspirin 81 mg tablet,delayed 81 mg PO DAILY 07/29/21 07/29/21 Unknown History release cetirizine 5 mg tablet 5 mg PO DAILY PRN 07/29/21 07/29/21 Unknown History cholecalciferol (vitamin D3) 25 25 mcg PO DAILY 07/29/21 07/29/21 Unknown History mcg (1,000 unit) tablet (Vitamin D3) diltiazem HCl 240 mg 240 mg PO QAM 07/29/21 07/29/21 Unknown History capsule,extended release 24 hr docusate sodium 100 mg capsule 100 mg PO DAILY PRN 07/29/21 07/29/21 Unknown History (Colace) glipizide 5 mg tablet 2.5 mg PO DAILY 07/29/21 07/29/21 Unknown History metformin 500 mg tablet 1,000 mg PO BID 07/29/21 07/29/21 Unknown History tizanidine 4 mg tablet 2 mg PO TID PRN 07/29/21 07/29/21 Unknown History Allergies Allergy/AdvReac Type Severity Reaction Status Date / Time pravastatin AdvReac Leg cramps Verified 07/29/21 12:04 Current Medications Generic Name Dose Route Start Last Admin Trade Name Freq PRN Reason Stop Dose Admin Acetaminophen 650 mg 07/29/21 04:54 07/31/21 09:13 Acetaminophen 325 Mg Tablet PO 650 mg Q6H PRN Administration Mild/Mod Pain Or Temp >/= 101 Amiodarone HCl 400 mg 07/30/21 09:00 07/31/21 17:13 Amiodarone 200 Mg Tablet PO 400 mg BID PIETER Administration Aspirin 81 mg 07/30/21 11:15 07/31/21 07:50 Aspirin 81 Mg Ec Tablet PO 81 mg DAILY PIETER Administration Diltiazem HCl 180 mg 07/29/21 09:00 07/31/21 07:50 Diltiazem Er (24hr) 180 Mg Capsule PO 180 mg DAILY PIETER Administration Duloxetine HCl 30 mg 07/29/21 09:00 07/31/21 17:13 Duloxetine 30 Mg Capsule PO 30 mg BID PIETER Administration Heparin Sodium (Porcine) 5,000 unit 07/29/21 05:45 07/31/21 17:12 Heparin 5,000 Unit/Ml Inj 1 Ml SUBCUT 5,000 unit Q12H PIETER Administration Vancomycin/PEG/NADA/Lysine/Water 1,500 mg in 300 mls @ 150 mls/hr 07/30/21 06:00 07/31/21 08:04 Vancocin IV Infused Q24H PIETER Infusion Sodium Chloride 1,000 mls @ 50 mls/hr 07/29/21 05:30 07/31/21 08:21 Sodium Chloride 0.9% IV 50 mls/hr .Q20H PIETER Administration Piperacillin Sod/Tazobactam 50 mls @ 12.5 mls/hr 07/30/21 16:00 07/31/21 16:18 Sod 3.375 gm/ Sodium Chloride IV 12.5 mls/hr Q8H PIETER Administration Protocol Insulin Glargine 10 unit 07/31/21 18:00 07/31/21 17:20 Insulin Glargine 100 Units/1 Ml SUBCUT 10 unit Q12H PIETER Administration Insulin Human Lispro 0 unit 07/31/21 12:00 07/31/21 17:12 Insulin Lispro 100 Unit/1 Ml SUBCUT 16 unit TIDWM PIETER Administration Protocol Pantoprazole Sodium 40 mg 07/29/21 12:05 07/31/21 07:[address] 40 Mg Tablet PO 40 mg DAILY PIETER Administration Topiramate 50 mg 07/29/21 18:00 07/31/21 17:13 Topiramate 100 Mg Tablet PO 50 mg BID PIETER Administration PFSH Acute PFSH: Medical History Hypertension ALEX on CPAP Seasonal allergic rhinitis Type 2 diabetes mellitus with diabetic polyneuropathy Vitamin D insufficiency Surgical History History of basal cell carcinoma (BCC) excision (~06/2016) History of cataract removal with insertion of prosthetic lens (~2016) RIGHT: 05/13/16 LEFT: 06/03/16 History of lumbosacral spine surgery L4-L5 Family History Mother , AT AGE 93 Diabetes Stroke Cancer melanoma Father , AT AGE 86 Diabetes Social History Smoking and tobacco status: former smoker Alcohol intake: never Marital status: Current occupational status: retired History of recent travel: No Vitals/I&O/Wt Last Vital Signs Temp 98.5 F 07/31/21 12:00 Pulse 88 07/31/21 16:00 Resp 23 H 07/31/21 16:00 BP 124/75 07/31/21 16:00 Pulse Ox 94 07/31/21 16:00 07/31/21 07/31/21 07/31/21 06:59 14:59 22:59 Intake Total 50 / 2399.930 8194.792 / 2712.792 480 / 3192.792 Output Total 1989 1575 / 1575 Balance -400 / -572.482 1178.792 / 2712.792 -1095 / 1617.792 Weight last 48 hrs Weight 395 lb 12.8 oz Weight 388 lb 4.8 oz Physical Exam Narrative: GENERAL: The patient is alert and oriented to person. Not in any acute distress. HEENT: Minimal pallor. No icterus. NECK: Trachea appears to be central. No masses noted. No JVD or thyromegaly appreciated. RESPIRATORY: Breath sounds are bilaterally with diminished intensity of breath sounds in the bases. BREASTS: Deferred. HEART: The heart sounds are normal. No S3 or S4. No significant murmurs. No pericardial rub ABDOMEN: Nontender. Bowel sounds are normally heard. Extremities-1+ edema. Data : 08/01/21 05:26 08/01/21 05:26 Other Labs: Laboratory Last Values WBC 20.6 10^3/uL (4.0-10.0) H 07/31/21 04:46 RBC 4.68 10^6/uL (4.1-5.3) 07/31/21 04:46 Hgb 13.8 g/dL (11.7-16.6) 07/31/21 04:46 Hct 40.2 % (42.0-52.0) L 07/31/21 04:46 MCV 85.9 fl (80-94) 07/31/21 04:46 MCH 29.5 pg (28.0-34.0) 07/31/21 04:46 MCHC 34.3 g/dL (30.0-36.0) 07/31/21 04:46 RDW 13.4 % (12.1-15.1) 07/31/21 04:46 Plt Count 55 10^3/cmm (130-400) L D 07/31/21 04:46 MPV 13.1 fL (7.4-10.4) H 07/31/21 04:46 Neut % (Auto) 87.8 % 07/31/21 04:46 Lymph % (Auto) 4.8 % 07/31/21 04:46 [place] % (Auto) 6.3 % 07/31/21 04:46 Eos % (Auto) 0.0 % 07/31/21 04:46 Baso % (Auto) 0.5 % 07/31/21 04:46 Neut # (Auto) 18.13 10^3/uL (1.8-7.7) H 07/31/21 04:46 Lymph # (Auto) 1.0 10^3/uL (0.8-4.8) 07/31/21 04:46 [place] # (Auto) 1.3 10^3/uL (0.2-0.9) H 07/31/21 04:46 Eos # (Auto) 0.0 10^3/uL (0.0-0.8) 07/31/21 04:46 Baso # (Auto) 0.1 10^3/uL (0.0-0.1) 07/31/21 04:46 Nucleated RBC % (auto) 0 % 07/31/21 04:46 Total Counted 100 (0-100) 07/30/21 11:42 Atypical Lymphs % 1.0 % (0-5) 07/30/21 11:42 Absolute Neutrophils 18.5 10^3/cmm (1.4-6.5) H 07/30/21 11:42 Segmented Neutrophils 72 % 07/30/21 11:42 Abs Segm Neuts (Man) 14.3 10/cmm (1.6-7.1) H 07/30/21 11:42 Band Neutrophils 21.0 % 07/30/21 11:42 Abs Band Neuts (Man) 4.2 10^3/cmm (0.0-1.2) H 07/30/21 11:42 Absolute Lymphocytes 0.8 10^3/cmm (1.2-3.4) L 07/30/21 11:42 Lymphocytes (Manual) 3 % 07/30/21 11:42 Monocytes (Manual) 2.0 % 07/30/21 11:42 Absolute Monocytes 0.4 10^3/cmm (0.1-0.6) 07/30/21 11:42 Eosinophils (Manual) 0 % 07/30/21 11:42 Absolute Eosinophils 0.0 10^3/cmm (0.0-0.7) 07/30/21 11:42 Basophils (Manual) Not Reportable 07/30/21 11:42 Absolute Basophils 0.0 10^3/cmm (0.0-0.2) 07/29/21 01:56 Metamyelocytes 1.0 % 07/29/21 01:56 Nucleated RBCs 1.0 /100WBC (0-1) 07/30/21 11:42 Nucleated RBCs # 0.0 /100WBC 07/31/21 04:46 Toxic Granulation 1+ H 07/29/21 01:56 Toxic Vacuolation 1+ H 07/30/21 11:42 Platelet Estimate Decreased (Normal) 07/30/21 11:42 Giant Platelets 1+ H 07/30/21 11:42 Polychromasia Trace 07/30/21 11:42 ESR 40 mm/hr (0-10) H 07/30/21 11:42 Haptoglobin 185.0 mg/L (30-200) 07/30/21 03:37 PT 13.20 SECONDS (12.1-14.9) 07/31/21 04:46 INR 0.97 (0.8-1.2) 07/31/21 04:46 Specimen Type Arterial 07/31/21 04:00 Sample Site Radial, right 07/31/21 04:00 ABG pH 7.40 (7.35-7.45) 07/31/21 04:00 ABG pCO2 33.6 mmHg (35-45) L 07/31/21 04:00 ABG pO2 162.0 mmHg (80.0-100.0) H 07/31/21 04:00 ABG HCO3 20.7 mmol/L (22-26) L 07/31/21 04:00 ABG Base Excess -3.4 mmol/L (-2.0-2.0) L 07/31/21 04:00 Max Test Pos 07/31/21 04:00 Hematocrit 42.3 % (42-52) 07/31/21 04:00 O2 Delivery Device Bipap 07/31/21 04:00 FiO2 40.0 % 07/30/21 17:22 CPAP 14.0 cmH20 07/31/21 04:00 Benefits Administrator ID [email or web address] 07/31/21 04:00 Sodium 131 mmol/L (136-145) L 07/31/21 04:46 Potassium 3.8 mmol/L (3.5-5.1) 07/31/21 04:46 Chloride 97 mmol/L (98-107) L 07/31/21 04:46 Carbon Dioxide 21 mmol/L (22-29) L 07/31/21 04:46 Anion Gap 16.8 (5-19) 07/31/21 04:46 BUN 82 mg/dL (8-23) H* 07/31/21 04:46 Creatinine 2.3 mg/dL (0.7-1.2) H 07/31/21 04:46 GFR Calculation Not Reportable 07/31/21 04:46 Glucose 371 mg/dL (65-115) H 07/31/21 04:46 POC Glucose 358 mg/dL (70-110) H 07/31/21 17:05 Calculated Osmolality 312 mOsm/kg (285-295) H 07/31/21 04:46 Lactic Acid 6.0 mmol/L (0.5-2.2) H* 07/29/21 10:03 Lactic Acid (Sepsis) 3.3 mmol/L (0.5-2.2) H 07/29/21 16:05 Lactate 1.9 mmol/L (0.5-2.2) 07/31/21 04:46 Calcium 8.9 mg/dL (8.5-10.5) 07/31/21 04:46 Phosphorus 3.9 mg/dL (2.5-4.5) 07/31/21 04:46 Magnesium 2.3 mg/dL (1.7-2.3) 07/31/21 04:46 Total Bilirubin 0.4 mg/dL (0.15-1.2) 07/31/21 04:46 AST 35 U/L (0-40) 07/31/21 04:46 ALT 22 U/L (0-41) 07/31/21 04:46 Alkaline Phosphatase 134 IU/L (40-130) H 07/31/21 04:46 Creatine Kinase 566 U/L (39-308) H* 07/31/21 04:46 Creatine Kinase Cancelled 07/31/21 04:46 Troponin T Baseline 42 ng/L (0-15) H 07/30/21 11:42 Troponin T 120 Minute 37.83 ng/L (0-15) H 07/30/21 13:39 Delta Troponin T -4.17 ABS# (0-10) L 07/30/21 13:39 Troponin T Hi Sens 6Hr 36.39 ng/L (0-15) H 07/30/21 17:36 Troponin T Hi Sens 6Hr Delta -5.61 ng/L (0-12) L 07/30/21 17:36 C-Reactive Protein 387.9 mg/L (0.0-4.9) H 07/31/21 04:46 NT-Pro-B Natriuret Pep 2356 pg/mL (0-450) H 07/31/21 04:46 NT-Pro-B Natriuret Pep Cancelled 07/31/21 04:46 Total Protein 6.0 g/dL (6.6-8.7) L 07/31/21 04:46 Albumin 2.3 g/dL (3.5-5.2) L 07/31/21 04:46 Globulin 3.7 g/dL (1.3-4.6) 07/31/21 04:46 Procalcitonin 30.78 ng/mL (0-0.5) H 07/31/21 04:46 Procalcitonin Cancelled 07/31/21 04:46 Urine Color Yellow (Yellow) 07/29/21 04:08 Urine Appearance Sl hazy (CLEAR) 07/29/21 04:08 Urine pH 5 (5-7) 07/29/21 04:08 Ur Specific [place] 1.020 (1.005-1.030) 07/29/21 04:08 Urine Protein 1+ (Negative) H 07/29/21 04:08 Urine Glucose (UA) 4+ (Normal) H 07/29/21 04:08 Urine Ketones 1+ (Negative) H 07/29/21 04:08 Urine Blood 2+ (Negative) H 07/29/21 04:08 Urine Nitrate Negative (Negative) 07/29/21 04:08 Urine Bilirubin Neg (Negative) 07/29/21 04:08 Urine Urobilinogen Norm mg/dL (Negative) 07/29/21 04:08 Ur Leukocyte Esterase Negative (Negative) 07/29/21 04:08 Urine RBC 5-10 /hpf (0-2) H 07/29/21 04:08 Urine WBC 5-10 /hpf (0-5) H 07/29/21 04:08 Ur Squamous Epith Cells 0-4 /hpf (0-5) H 07/29/21 04:08 Amorphous Sediment 1+ /hpf 07/29/21 04:08 Urine Bacteria Trace /hpf (NONE) 07/29/21 04:08 Fine Granular Casts 0-4 /lpf H 07/29/21 04:08 Coarse Granular Casts 0-4 /lpf H 07/29/21 04:08 Urine Mucus 1+ /hpf 07/29/21 04:08 Vancomycin Trough 12.2 ug/mL (10-15) 07/31/21 04:46 Serum Ketones Negative (Negative) 07/29/21 01:56 Coronavirus 229E (PCR) Not detected (NOT DETECT) 07/29/21 15:10 SARS-CoV-2 (PCR) Not detected (NOT DETECT) 07/29/21 15:10 Micro: Microbiology 07/30/21 17:36 Blood Culture - Preliminary Blood NEGATIVE TO DATE 07/29/21 04:05 Blood Culture - Final Blood Strep agalactiae - (group b) 07/29/21 04:17 Blood Culture - Final Blood Strep agalactiae - (group b) 07/30/21 03:37 Blood Culture - Preliminary Blood NEGATIVE TO DATE A&P Assessment and plan (1) Gram-positive bacteremia: I agree with BERNARDA to rule out endocarditis. As of now patient has no contraindication. Status: Acute (2) Altered mental status: Status: Acute (3) Acute encephalopathy: Status: Acute Consult Attestations Medical Necessity Statement: We will keep n.p.o. after midnight. Possible BERNARDA tomorrow afternoon. Coding Level of Care Code Acute Community Manager for [employer] Diagnoses Altered mental status R41.82 Acute encephalopathy G93.40 Gram-positive bacteremia R78.81
--- NOTE | 2021-07-31 20:16 | PC.NURSE ---
Nursing processing supervisor notified of Dr. Johnson's request for BERNARDA with anesthesia between 12pm and 2 pm 08/01/21. Dr. Johnson notified that nursing processing supervisor will place on the schedule.
--- NOTE | 2021-07-31 21:12 | PC.NURSE ---
Pt's sister has given verbal consent for transesophageal echocardiogram to be performed 08/01/21. Consent verified over phone with second RN.
[2021-07-31 21:46] LABS: Glucose Point of Care 354 mg/dL (70-110)
[2021-08-01] VITALS (46 sets, daily range): BP systolic 106–184; BP diastolic 65–111; PULSE 73–96; RESP 13–32; TEMP 36.6–36.9; O2SAT 92–100
--- NOTE | 2021-08-01 03:24 | PC.NURSE ---
Barrier cream applied to buttocks, groin, and scrotum.
[2021-08-01] MEDS: sodium chloride 0.9% 1,000 ML 50 ML IV ×2 (04:19→21:57)
--- NOTE | 2021-08-01 04:31 | PC.NURSE ---
Pt remains very sleepy, but easy to arouse. Pt follows commands, but no speech noted. Pt is wearing CPAP mask.
--- NOTE | 2021-08-01 04:33 | PC.NURSE ---
Pt has been NPO since midnight.
[2021-08-01 04:55] LABS: ABG PCO2 43.2 mmHg (35-45); ABG PH Result 7.34 (7.35-7.45); Arterial Blood Gas Hematocrit 42.1 % (42-52); Base Excess ABG -2.8 mmol/L (-2.0-2.0); Blood Gas Allen Test Pos; Blood Gas Operator Identificat ED; Blood Gas Sample Site Radial, right; Blood Gas Sample Type Arterial; HCO3 ABG 23.1 mmol/L (22-26); Oxygen Device BIPAP
[2021-08-01 05:51] LABS: Basophils # 0.1 10^3/uL (0.0-0.1); Basophils % 0.3 %; Eosinophils % 0.1 %; Hematocrit 40.6 % (42.0-52.0); Hemoglobin 13.5 g/dL (11.7-16.6); Lymphocytes # 0.9 10^3/uL (0.8-4.8); Lymphocytes % 4.7 %; Mean Corpuscular HGB Conc 33.3 g/dL (30.0-36.0); Mean Corpuscular Volume 87.3 fl (80-94); Mean Platelet Volume 12.9 fL (7.4-10.4); Monocytes # 1.5 10^3/uL (0.2-0.9); Monocytes % 7.4 %; Neutrophils # 17.07 10^3/uL (1.8-7.7); Neutrophils % 86.4 %; Nucleated Red Blood Cells % 0 %; Platelet Count 54 10^3/cmm (130-400); Red Blood Count 4.65 10^6/uL (4.1-5.3); Red Cell Distribution Width 13.5 % (12.1-15.1); White Blood Count 19.8 10^3/uL (4.0-10.0)
[2021-08-01 06:06] LABS: C Reactive Protein 205.8 mg/L (0.0-4.9); Lactate (Lactic Acid level) 1.8 mmol/L (0.5-2.2); Magnesium 2.4 mg/dL (1.7-2.3); Phosphorus 4.1 mg/dL (2.5-4.5)
[2021-08-01 06:07] LABS: INR 1.03 (0.8-1.2)
[2021-08-01 06:09] LABS: Alanine Aminotransferase 27 U/L (0-41); Albumin Level 2.5 g/dL (3.5-5.2); Alkaline Phosphatase 142 IU/L (40-130); Anion Gap 14.7 (5-19); Aspartate Amino Transferase 47 U/L (0-40); Blood Urea Nitrogen 73 mg/dL (8-23); Calcium 9.2 mg/dL (8.5-10.5); Carbon Dioxide 25 mmol/L (22-29); Chloride 100 mmol/L (98-107); Globulin 3.6 g/dL (1.3-4.6); Glucose 335 mg/dL (65-115); Osmolality Calculated 317 mOsm/kg (285-295); Potassium 3.7 mmol/L (3.5-5.1); Sodium 136 mmol/L (136-145); Total Bilirubin 0.4 mg/dL (0.15-1.2); Total Protein 6.1 g/dL (6.6-8.7)
[2021-08-01 06:19] LABS: NT Pro B Type Natriuretic Pept 3425 pg/mL (0-450); Procalcitonin 12.57 ng/mL (0-0.5)
[2021-08-01 06:23] LABS: Creatine Phosphokinase 733 U/L (39-308)
[2021-08-01] MEDS: heparin 5,000 unit/mL INJ 1 mL 5000 UNIT SUBCUT ×2 (06:52→16:37)
[2021-08-01] MEDS: vancomycin 1,500 MG/300 ML PIGGYBACK 150 MG IV (06:54)
[2021-08-01] MEDS: insulin glargine 100 units/1 mL 10 UNIT SUBCUT (06:54)
[2021-08-01 07:08] LABS: Glucose Point of Care 300 mg/dL (70-110)
--- NOTE | 2021-08-01 07:12 | W.PM.OPSUD ---
Surgery/Procedure H&P Update DATE OF PROCEDURE: August 01, 2021 DATE H&P PERFORMED: 07/31/21 H&P UPDATE INFORMATION: I have reviewed H&P completed within last 30 days, I have examined patient prior to procedure and No changes to prior documentation PREOP DIAGNOSIS: Rule out endocarditis PRIMARY INDICATION FOR PROCEDURE: Blood culture grew group B streptococci PLANNED PROCEDURE: Operation Date: 08/01/21 13:05 Proposed Procedures p BERNARDA(Not Applicable) - Shy Johnson MD
[2021-08-01] MEDS: piperacillin-tazobactam 3.375 GM in sodium chloride 0.9% (plus) 50 ML IV ×2 (07:46→16:36)
[2021-08-01] MEDS: insulin lispro 100 unit/1 mL SUBCUT ×4 (07:50→20:45)
[2021-08-01] MEDS: duloxetine 30 mg Capsule PO ×2 (07:51→16:37)
[2021-08-01] MEDS: dilTIAZem ER (24HR) 180 mg Capsule PO (07:51)
[2021-08-01] MEDS: pantoprazole DR 40 mg Tablet PO (07:51)
[2021-08-01] MEDS: amiodarone 200 mg Tablet 400 MG PO ×2 (07:51→16:37)
[2021-08-01] MEDS: topiramate 100 mg Tablet 50 MG PO ×2 (07:51→16:37)
[2021-08-01] MEDS: aspirin 81 mg EC Tablet PO (07:51)
[2021-08-01 11:16] LABS: Glucose Point of Care 298 mg/dL (70-110)
--- NOTE | 2021-08-01 11:23 | PC.SOCIAL ---
Pg 2 IMM Explained to pt on Pg 2 IMM. No questions voiced. Provided pt a copy. Initialed, dated, & timed a copy & placed in chart.
--- NOTE | 2021-08-01 12:44 | PM.PN ---
Subjective Subjective: Patient was seen this morning, sister at bedside, remains to have a poor appetite, currently on 2 to 3 L, remains in atrial fibrillation, heart rates well controlled, has back pain complaints Vitals/I&O/Wt Last Vital Signs Temp 98.2 F 08/01/21 08:00 Pulse 88 08/01/21 12:00 Resp 16 08/01/21 12:00 BP 159/94 08/01/21 12:00 Pulse Ox 98 08/01/21 12:00 07/31/21 08/01/21 08/01/21 22:59 06:59 14:59 Intake Total 590 / 3302.792 1048.333 / 4351.125 350 / 350 Output Total 1575 / 1575 700 / 2275 1000 / 1000 Balance -985 / 1727.792 348.333 / 2076.125 -650 / -650 Weight last 48 hrs Weight 176.538 kg Weight 179.532 kg Physical Exam Const: COMMON NORMALS: no acute distress ORIENTATION/CONSCIOUSNESS: Yes awake, Yes oriented to person and Yes oriented to place; not oriented to time Resp: COMMON NORMALS: normal respiratory effort, No retractions, No use of accessory muscles and clear to auscultation bilaterally AUSCULTATION: clear to auscultation bilaterally Cardio: COMMON NORMALS: regular rate, regular rhythm, S1 normal heart sound present and S2 normal heart sound present RATE: regular rate RHYTHM: regular rhythm HEART SOUNDS: S1 normal heart sound present and S2 normal heart sound present GI: COMMON NORMALS: Normal to inspection, nondistended, normoactive bowel sounds present, Soft to palpation, non-tender and No hepatosplenomegaly present PALPATION: Yes Soft to palpation and Yes No hepatosplenomegaly present Extremity: COMMON NORMALS: no pedal edema Neuro: SENSORIUM/ORIENTATION: Yes oriented to person, Yes oriented to place and No oriented to time Psych: COMMON NORMALS: mental status grossly normal Skin: NARRATIVE SKIN EXAM: Right lower extremity cellulitis, erythema, improved Data : 08/01/21 05:26 08/01/21 05:26 Micro: Microbiology 08/01/21 04:29 Blood Culture - Preliminary Blood SPECIMEN COLLECTED 08/01/21 04:26 Blood Culture - Preliminary Blood SPECIMEN COLLECTED 07/30/21 17:36 Blood Culture - Preliminary Blood NEGATIVE TO DATE 07/29/21 04:05 Blood Culture - Final Blood Strep agalactiae - (group b) 07/29/21 04:17 Blood Culture - Final Blood Strep agalactiae - (group b) A&P Assessment and plan (1) SIRS (systemic inflammatory response syndrome): Possible severe sepsis with lactic acidosis, SHREE, acute encephalopathy, with leukocytosis 24.9, tachycardia 115. Afebrile. He is coughing, although no obvious pneumonia on chest x-ray. Possible pulmonary source, possible atypical infection. We will also check COVID-19 PCR. Possible urinary infection, 5-10 RBC, 5-10 WBC. 0-4 squamous pleural cells. Negative nitrates. Assessed with CT abdomen pelvis renal stone protocol. No hydronephrosis noted. Questionable exophytic poorly visualized renal masses in the left kidney. Will need further follow-up later. Definitely has cellulitis of right lower extremity. Additionally obtain duplex of same extremity. Follow-up blood cultures. Empirically continue Zosyn, vancomycin at this time. Lactic acid recheck, slightly better, but not significantly improved, at 6. Unknown prior history of liver disease. Does have alkaline phosphatase elevation as well, which has been rising. Noted upper quadrant pain. Other liver parameters normal. Will obtain limited hepatobiliary ultrasound as well to assess possibility (although lower likelihood) of hepatobiliary infection. Assess echogenicity of the liver. Unknown if any history of liver fibrosis or cirrhosis. This could contribute to lactic acidosis, ketoacidosis. Check topiramate level. Add PPI prophylaxis. Status: Acute (2) Acidosis, lactic: Possible severe sepsis as above. Unknown if prior liver disease. Assess limited hepatobiliary ultrasound with management as above. Does have INR abnormality, 1.34, not on anticoagulation. Status: Acute (3) Acute kidney injury superimposed on CKD: Possible severe sepsis as above. Possible SHREE secondary sepsis. Possible secondary to NSAID, valsartan. Hold these medications. No hydronephrosis noted on CT renal stone. Received fluid challenge, hold further IVF. Adjusted topiramate dose. Track I&O and weights. Status: Acute (4) Cellulitis: Right lower extremity between knee and ankle dull redness, warmth. RLE> LLE. Assess venous duplex for possibility of DVT. Able to move right foot without problems. No pain. Findings not suggestive of compartment syndrome at the moment. Status: Acute (5) Hyperglycemia: Severe hyperglycemia in the 500s. Also ketones positive in urine. Possible early ketoacidosis cannot be excluded, the pH normal, but makes disorder as does have anion gap acidosis. Possible DKA cannot be excluded. Insulin drip. IV hydration. Follow-up electrolytes, maintaining potassium. Status: Acute (6) Acute encephalopathy: Acute metabolic encephalopathy with possible severe sepsis, with also other abnormalities including SHREE, possible toxic encephalopathy with SHREE and tizanidine or other medications. Hold this medication for now. Management Conditions as above. Status: Acute (7) Rhabdomyolysis: Mild rhabdomyolysis, CK 589. Reassess CK. Status: Acute (8) Renal mass, right: ?Exophytic subcentimeter masses from the RIGHT kidney cannot be further characterized on this unenhanced study due to their small size and no contrast. Will need follow-up after acute illness Status: Acute (9) Hypertension: Blood pressures fluctuating somewhat difficult to measure due to body habitus. Monitor blood pressures for now. Valsartan on hold due to SHREE. Status: Chronic Qualifiers: Hypertension type: essential hypertension Qualified Code(s): I10 - Essential (primary) hypertension (10) Metabolic acidosis: Anion gap anabolic acidosis, lactic acidosis, possible ketoacidosis. Status: Acute (11) Sinus tachycardia: In setting of possible severe sepsis, multiple metabolic abnormalities. Additional assessment as above. Status: Acute (12) ALEX on CPAP: Status: Chronic (13) Type 2 diabetes mellitus with diabetic polyneuropathy: Does not appear to be on metformin. Oral hypoglycemics on hold. Status: Chronic Qualifiers: Diabetes mellitus terminal manager insulin use: with terminal manager use Qualified Code(s): E11.42 - Type 2 diabetes mellitus with diabetic polyneuropathy; Z79.4 - residential (current) use of insulin (14) Bacteremia due to group B Streptococcus: Status: Acute (15) Peripheral vascular disease: Status: Acute (16) Atrial fibrillation with RVR: Status: Acute Plan Troponin level elevated: Mild-moderate troponin elevation, denies any chest pain or pressure. Atrial fibrillation is reported on one of the EKGs, although there are P waves there. Possible prior W[place] with Q waves in 2, 3 and aVF. Will need further cardiac restratification once he is more stable. For now we will assess with TTE. Possible pulmonary edema: Hold further IVF. Assess TTE. Continue oxygen support and monitor oxygenation. Resume Lasix if needed. CXR in AM. Discussed his condition with one of his sisters over the phone, he understands Gilma is said to be his power of disability attorney of healthcare, but on my return visit to the room had stepped out, will further discuss with her when able. 76 year old male with past medical history of hypertension diabetes obstructive sleep apnea resident of [place] Came in with chief complaint of generalized weakness, as well as back pain. Group B strep bacteremia -With acute encephalopathy -With SIRS, sepsis -With acute renal failure -With lactic acidosis -With NSTEMI Plan -Underlying likely right lower extremity cellulitis which is improving -Repeat blood cultures so far negative -However will need a transesophageal echocardiogram to rule out endocarditis -Currently n.p.o., awaiting transesophageal echocardiogram -For now continue vancomycin, Zosyn, -Follow repeat blood cultures -Monitor mentation -Monitor urine output -Full code -SCDs and heparin for DVT prophylaxis Acute thrombocytopenia -Unlikely to be heparin-induced thrombocytopenia -Likely pseudothrombocytopenia from platelet clumping, l also related to sepsis -Follow HIT panel, peripheral smear A. fib with RVR -Likely secondary to underlying sepsis and SIRS -Heart rates under better control stop amiodarone drip, continue p.o. amiodarone -Hold off on heparin given thrombocytopenia -Serial EKGs, troponins Acute renal failure, SHREE, rhabdomyolysis -Elevated BUN, likely secondary dehydration, IV fluids Lactic acidosis as above NSTEMI as above Deconditioning, bedbound, repositioning Peripheral vascular disease 1. Moderate disease in the right anterior tibial and posterior tibial arteries with visible runoff to the foot. 2. Calcified plaque with moderate focal stenosis in the left popliteal artery. 3. Severe multifocal disease in the left anterior tibial artery with no visible runoff to the foot. 4. Subcutaneous soft tissue edema or cellulitis in the right lower leg, ankle, and dorsal foot.? -Monitor DP PT pulses -Will will likely require intervention at some point Type 2 diabetes mellitus, with hyperglycemia -Elevated blood sugars increase Lantus to 10 needs daily, high-dose sliding scale Cellulitis, as above ALEX, CPAP Attestations Medical Necessity Statement*: Patient requires hospitalizationpatient requires hospitalization for cellulitis Coding Level of Care Code Acute Buyer for g Fwd Diagnoses SIRS (systemic inflammatory response syndrome) R65.10 Acidosis, lactic E87.2 Acute kidney injury superimposed on CKD N17.9; N18.9 Cellulitis L03.90 Hyperglycemia R73.9 Acute encephalopathy G93.40 Rhabdomyolysis M62.82 Renal mass, right N28.89 Hypertension I10 Hypertension type: essential hypertension Metabolic acidosis E87.2 Sinus tachycardia R00.0 ALEX on CPAP G47.33; Z99.89 Type 2 diabetes mellitus with diabetic polyneuropathy E11.42; Z79.4 Diabetes mellitus terminal manager insulin use: with group home use Bacteremia due to group B Streptococcus R78.81; B95.1 Peripheral vascular disease I73.9 Atrial fibrillation with RVR I48.91
--- NOTE | 2021-08-01 12:56 | ANES.PREANE2 ---
Pre-Anesthetic Assessment Height/Weight: Height 1.85 m Weight 176.538 kg Temp Pulse Resp BP Pulse Ox 98.2 F 88 16 159/94 98 08/01/21 08:00 08/01/21 12:00 08/01/21 12:00 08/01/21 12:00 08/01/21 12:00 Preop Diagnosis: ASHD Operation Date: 08/01/21 13:05 Proposed Procedures p BERNARDA(Not Applicable) - Shy Johnson MD Familial anesthetic complications: None Last intake: > 8 hrs Social No alcohol and No tobacco Exam alert, oriented x 3, clear to auscultation bilaterally and regular rate & rhythm Airway Mallampati: Class IV Dentition: partials Pulmonary Sleep Apnea CV/HEM Atrial Fibrillation, Arrythmia and Peripheral Vascular Disease Chronic Renal Insufficiency Metabolic Diabetes Mellitus and Morbid Obesity Neuropsych encephalopathic Anesthetic Plan ASA status: 4 Anesthesia: MAC Risk of > 500 ml blood loss (7ml/kg in children): No Medications/Allergies Home Medications Medication Instructions Recorded Confirmed Last Taken Type duloxetine 30 mg capsule,delayed 30 mg PO BID #60 cap 04/07/19 07/29/21 Unknown Rx release (Cymbalta) furosemide 40 mg tablet (Lasix) 40 mg PO DAILY PRN #30 tab 04/07/19 07/29/21 Unknown Rx valsartan 160 mg tablet 160 mg PO DAILY #30 tab 04/07/19 07/29/21 Unknown Rx topiramate 100 mg tablet (Topamax) 100 mg PO BID #60 tab 04/22/19 07/29/21 Unknown Rx alogliptin 12.5 mg tablet 12.5 mg PO DAILY 07/29/21 07/29/21 Unknown History aspirin 81 mg tablet,delayed 81 mg PO DAILY 07/29/21 07/29/21 Unknown History release cetirizine 5 mg tablet 5 mg PO DAILY PRN 07/29/21 07/29/21 Unknown History cholecalciferol (vitamin D3) 25 25 mcg PO DAILY 07/29/21 07/29/21 Unknown History mcg (1,000 unit) tablet (Vitamin D3) diltiazem HCl 240 mg 240 mg PO QAM 07/29/21 07/29/21 Unknown History capsule,extended release 24 hr docusate sodium 100 mg capsule 100 mg PO DAILY PRN 07/29/21 07/29/21 Unknown History (Colace) glipizide 5 mg tablet 2.5 mg PO DAILY 07/29/21 07/29/21 Unknown History metformin 500 mg tablet 1,000 mg PO BID 07/29/21 07/29/21 Unknown History tizanidine 4 mg tablet 2 mg PO TID PRN 07/29/21 07/29/21 Unknown History Allergies Allergy/AdvReac Type Severity Reaction Status Date / Time pravastatin AdvReac Leg cramps Verified 07/29/21 12:04 Current Medications Generic Name Dose Route Start Last Admin Trade Name Freq PRN Reason Stop Dose Admin Acetaminophen 650 mg 07/29/21 04:54 07/31/21 09:13 Acetaminophen 325 Mg Tablet PO 650 mg Q6H PRN Administration Mild/Mod Pain Or Temp >/= 101 Amiodarone HCl 400 mg 07/30/21 09:00 08/01/21 07:51 Amiodarone 200 Mg Tablet PO 400 mg BID PIETER Administration Aspirin 81 mg 07/30/21 11:15 08/01/21 07:51 Aspirin 81 Mg Ec Tablet PO 81 mg DAILY PIETER Administration Diltiazem HCl 180 mg 07/29/21 09:00 08/01/21 07:51 Diltiazem Er (24hr) 180 Mg Capsule PO 180 mg DAILY PIETER Administration Duloxetine HCl 30 mg 07/29/21 09:00 08/01/21 07:51 Duloxetine 30 Mg Capsule PO 30 mg BID PIETER Administration Heparin Sodium (Porcine) 5,000 unit 07/29/21 05:45 08/01/21 06:52 Heparin 5,000 Unit/Ml Inj 1 Ml SUBCUT 5,000 unit Q12H PIETER Administration Vancomycin/PEG/NADA/Lysine/Water 1,500 mg in 300 mls @ 150 mls/hr 07/30/21 06:00 08/01/21 09:00 Vancocin IV Infused Q24H PIETER Infusion Sodium Chloride 1,000 mls @ 50 mls/hr 07/29/21 05:30 08/01/21 04:19 Sodium Chloride 0.9% IV 50 mls/hr .Q20H PIETER Administration Piperacillin Sod/Tazobactam 50 mls @ 12.5 mls/hr 07/30/21 16:00 08/01/21 11:55 Sod 3.375 gm/ Sodium Chloride IV Infused Q8H PIETER Infusion Protocol Insulin Human Lispro 0 unit 07/31/21 22:15 07/31/21 22:43 Insulin Lispro 100 Unit/1 Ml SUBCUT 8 unit BEDTIME PIETER Administration Protocol Insulin Human Lispro 0 unit 08/01/21 08:00 08/01/21 11:56 Insulin Lispro 100 Unit/1 Ml SUBCUT 12 unit TIDWM PIETER Administration Protocol Pantoprazole Sodium 40 mg 07/29/21 12:05 08/01/21 07:[address] 40 Mg Tablet PO 40 mg DAILY PIETER Administration Topiramate 50 mg 07/29/21 18:00 08/01/21 07:51 Topiramate 100 Mg Tablet PO 50 mg BID PIETER Administration PFSH Anesthesia Medical History Hypertension ALEX on CPAP Seasonal allergic rhinitis Type 2 diabetes mellitus with diabetic polyneuropathy Vitamin D insufficiency Surgical History History of basal cell carcinoma (BCC) excision (~06/2016) History of cataract removal with insertion of prosthetic lens (~2016) RIGHT: 05/13/16 LEFT: 06/03/16 History of lumbosacral spine surgery L4-L5 Family History Mother , AT AGE 93 Diabetes Stroke Cancer melanoma Father , AT AGE 86 Diabetes Social History Smoking and tobacco status: former smoker Alcohol intake: never Marital status: Current occupational status: retired History of recent travel: No Data Anesthesia : 08/01/21 05:26 08/01/21 05:26 Short CBC 07/31/21 08/01/21 Range/Units 04:46 05:26 WBC 20.6 H 19.8 H (4.0-10.0) 10^3/uL Hgb 13.8 13.5 (11.7-16.6) g/dL Hct 40.2 L 40.6 L (42.0-52.0) % MCV 85.9 87.3 (80-94) fl Plt Count 55 L D 54 L (130-400) 10^3/cmm Neut % (Auto) 87.8 86.4 % Neut # (Auto) 18.13 H 17.07 H (1.8-7.7) 10^3/uL BMP 07/31/21 08/01/21 04:46 05:26 Sodium 131 L 136 Potassium 3.8 3.7 Chloride 97 L 100 Carbon Dioxide 21 L 25 BUN 82 H* 73 H Creatinine 2.3 H 1.7 H Glucose 371 H 335 H Calcium 8.9 9.2 Cardiac Enzymes 07/30/21 07/30/21 07/31/21 Range/Units 13:39 17:36 04:46 Creatine Kinase Cancelled Troponin T 120 Minute 37.83 H (0-15) ng/L Delta Troponin T -4.17 L (0-10) ABS# Troponin T Hi Sens 6Hr 36.39 H (0-15) ng/L Troponin T Hi Sens 6Hr Delta -5.61 L (0-12) ng/L NT-Pro-B Natriuret Pep (0-450) pg/mL 07/31/21 07/31/21 08/01/21 Range/Units 04:46 04:46 05:26 Creatine Kinase 566 H* Cancelled Troponin T 120 Minute (0-15) ng/L Delta Troponin T (0-10) ABS# Troponin T Hi Sens 6Hr (0-15) ng/L Troponin T Hi Sens 6Hr Delta (0-12) ng/L NT-Pro-B Natriuret Pep 2356 H Cancelled (0-450) pg/mL 08/01/21 08/01/21 Range/Units 05:26 05:26 Creatine Kinase 733 H* Troponin T 120 Minute (0-15) ng/L Delta Troponin T (0-10) ABS# Troponin T Hi Sens 6Hr (0-15) ng/L Troponin T Hi Sens 6Hr Delta (0-12) ng/L NT-Pro-B Natriuret Pep 3425 H (0-450) pg/mL Liver Function 07/31/21 08/01/21 Range/Units 04:46 05:26 Total Bilirubin 0.4 0.4 (0.15-1.2) mg/dL AST 35 47 H (0-40) U/L ALT 22 27 (0-41) U/L Alkaline Phosphatase 134 H 142 H (40-130) IU/L Albumin 2.3 L 2.5 L (3.5-5.2) g/dL Coags 07/31/21 07/31/21 08/01/21 04:46 04:46 05:26 PT 13.20 INR 0.97 C-Reactive Protein 387.9 H 205.8 H 08/01/21 05:26 PT 13.80 INR 1.03 C-Reactive Protein ABG 07/30/21 07/31/21 08/01/21 17:22 04:00 04:44 Specimen Type Arterial Arterial Arterial Sample Site Radial, right Radial, right Radial, right ABG pH 7.40 7.40 7.34 L ABG pCO2 29.7 L 33.6 L 43.2 ABG pO2 155.0 H 162.0 H 156.0 H ABG HCO3 18.5 L 20.7 L 23.1 ABG Base Excess -5.0 L -3.4 L -2.8 L O2 Delivery Device Bipap Bipap FiO2 40.0 40.0 CPAP 14.0 14.0 14.0 Microbiology 08/01/21 04:29 Blood Culture - Preliminary Blood SPECIMEN COLLECTED 08/01/21 04:26 Blood Culture - Preliminary Blood SPECIMEN COLLECTED 07/30/21 17:36 Blood Culture - Preliminary Blood NEGATIVE TO DATE 07/29/21 04:05 Blood Culture - Final Blood Strep agalactiae - (group b) 07/29/21 04:17 Blood Culture - Final Blood Strep agalactiae - (group b) Cardiac Studies: Echocardiogram 07/29/21
--- NOTE | 2021-08-01 13:00 | USCV_ITS ---
Jorge Tomlin Age: 76 Gender: M : 1945 Exam Date: 08/01/2021 12:52 Ordering Phys: Shy Johnson MD ([email or web address]) Technologist: Maria Del Rosario Oates Exam Location: [facility] [place] Indication: Rule out vegetation BP: 6 / 1 HR: Rhythm: Sinus Technical Quality: Adequate MEASUREMENTS (Male / Female) Normal Values Medications IV propofol-please refer to anesthesia report for details Complications None Proc. Components The procedure was performed on the ICU after getting the informed consent from the POA. IV sedation was administered by the anesthesia service.the BERNARDA probe was passed into the posterior pharynx , mid-esophagus, distal esophagus, and gastric fundus. BERNARDA was performed at multiple levels. The patient tolerated the procedure well and there were no complications. FINDINGS Left Ventricle Appears to be of normal size and contractility. No intracardiac masses were noted. Right Ventricle Appear to be normal size. No intracardiac masses were noted. Right Atrium No intracavitary masses were noted. Eustachian valve vestiges were noted Left Atrium No intracavitary masses were noted. LA Appendage Loss of normal size and contractility. No intracavitary masses or thrombi noted. IA Septum Appeared to be intact with no evidence of ASD or patent foramen ovale, based on color-flow Doppler examination Mitral Valve Normal morphology with no masses or vegetations noted. Aortic Valve Tricuspid valve with minimal thickening. No masses or vegetations noted Tricuspid Valve Normal morphology with no masses or vegetations. Pulmonic Valve No abnormalities noted Pericardium No pericardial effusion Aorta Aortic root was of normal size. No unstable plaques or lesions were noted. CONCLUSIONS No intracavitary/valvular masses or vegetations were noted. Interatrial septum was found to be intact, based on the color- flow Doppler examination. No significant regurgitant lesions Minimal thickening of the aortic valve was noted. Normal LV size and ejection fraction. Normal aortic root there are no unstable lesions Dr Shy Johnson MD FACC (Electronically Signed) Final Date: 02 August 2021 07:23 S
--- NOTE | 2021-08-01 15:36 | PC.NURSE ---
BERNARDA completed per MD, anesthesia and ultrasound. Pt tolerated well. Orders placed for diet. Will monitor.
--- NOTE | 2021-08-01 16:36 | ANE.PACU2 ---
Inpatient post-anesthesia follow up: Airway intact: Yes Vital signs: Temperature 98.2 F Pulse Rate 90 Respiratory Rate 16 Blood Pressure 154/100 Pulse Oximetry 94 Oxygen Delivery Me thod [ Nasal Cannula Current Rate & Del neo] Oxygen Delivery Me thod Nasal Cannula Oxygen Flow Rate [ Current Rate 3 & Delivery] Oxygen Flow Rate 3 Fraction of Inspir ed Oxygen 30 Hydration adequate: Yes Nausea and vomiting: Yes Pain level: 1 Mental status: Baseline
[2021-08-01 17:10] LABS: Glucose Point of Care 253 mg/dL (70-110)
[2021-08-01] MEDS: insulin glargine 100 units/1 mL 15 UNIT SUBCUT (17:26)
[2021-08-01] MEDS: acetaminophen 325 mg Tablet 650 MG PO (17:41)
[2021-08-01 20:41] LABS: Glucose Point of Care 261 mg/dL (70-110)
--- NOTE | 2021-08-01 23:59 | PC.NURSE ---
Pt is restless, pulling at his CPAP mask. Mask removed, and nasal cannula placed on patient. Pt educated regarding sleep apnea, and agrees to keep mask off for only a short time.
[2021-08-02] VITALS (22 sets, daily range): BP systolic 125–159; BP diastolic 61–91; PULSE 71–112; RESP 13–27; TEMP 36.9–37.1; O2SAT 81–99
[2021-08-02] MEDS: piperacillin-tazobactam 3.375 GM in sodium chloride 0.9% (plus) 50 ML IV ×3 (00:28→17:20)
[2021-08-02 03:49] LABS: ABG PCO2 41.8 mmHg (35-45); ABG PH Result 7.36 (7.35-7.45); Arterial Blood Gas Hematocrit 40.7 % (42-52); Base Excess ABG -2.2 mmol/L (-2.0-2.0); Blood Gas Allen Test Pos; Blood Gas Operator Identificat ED; Blood Gas Sample Site Radial, left; Blood Gas Sample Type Arterial; HCO3 ABG 23.3 mmol/L (22-26)
[2021-08-02 05:28] LABS: Basophils # 0.1 10^3/uL (0.0-0.1); Basophils % 0.4 %; Eosinophils % 0.1 %; Hematocrit 40.5 % (42.0-52.0); Hemoglobin 13.5 g/dL (11.7-16.6); Lymphocytes % 5.9 %; Mean Corpuscular HGB Conc 33.3 g/dL (30.0-36.0); Mean Corpuscular Hemoglobin 29.5 pg (28.0-34.0); Mean Corpuscular Volume 88.4 fl (80-94); Monocytes # 1.6 10^3/uL (0.2-0.9); Monocytes % 9.3 %; Neutrophils # 14.06 10^3/uL (1.8-7.7); Neutrophils % 82.4 %; Nucleated Red Blood Cells % 0 %; Platelet Count 80 10^3/cmm (130-400); Red Blood Count 4.58 10^6/uL (4.1-5.3); Red Cell Distribution Width 13.6 % (12.1-15.1)
[2021-08-02] MEDS: heparin 5,000 unit/mL INJ 1 mL 5000 UNIT SUBCUT ×2 (05:37→17:20)
[2021-08-02] MEDS: vancomycin 1,500 MG/300 ML PIGGYBACK 150 MG IV (05:37)
[2021-08-02 05:43] LABS: INR 1.15 (0.8-1.2)
[2021-08-02 05:48] LABS: Lactate (Lactic Acid level) 1.6 mmol/L (0.5-2.2)
[2021-08-02 05:53] LABS: NT Pro B Type Natriuretic Pept 3180 pg/mL (0-450); Procalcitonin 5.24 ng/mL (0-0.5)
[2021-08-02 06:05] LABS: Alanine Aminotransferase 23 U/L (0-41); Albumin Level 1.9 g/dL (3.5-5.2); Alkaline Phosphatase 144 IU/L (40-130); Blood Urea Nitrogen 62 mg/dL (8-23); C Reactive Protein 160.2 mg/L (0.0-4.9); Calcium 9.1 mg/dL (8.5-10.5); Carbon Dioxide 22 mmol/L (22-29); Chloride 102 mmol/L (98-107); Creatine Phosphokinase 218 U/L (39-308); Globulin 4.5 g/dL (1.3-4.6); Glucose 245 mg/dL (65-115); Magnesium 2.2 mg/dL (1.7-2.3); Osmolality Calculated 308 mOsm/kg (285-295); Sodium 136 mmol/L (136-145); Total Bilirubin 0.5 mg/dL (0.15-1.2); Total Protein 6.4 g/dL (6.6-8.7)
[2021-08-02 06:09] LABS: Anion Gap 15.7 (5-19); Aspartate Amino Transferase 28 U/L (0-40); Potassium 3.7 mmol/L (3.5-5.1)
[2021-08-02] MEDS: insulin glargine 100 units/1 mL 15 UNIT SUBCUT ×2 (06:55→17:33)
[2021-08-02 07:25] LABS: Glucose Point of Care 228 mg/dL (70-110)
[2021-08-02] MEDS: dilTIAZem ER (24HR) 180 mg Capsule PO (07:49)
[2021-08-02] MEDS: amiodarone 200 mg Tablet 400 MG PO ×2 (07:50→17:21)
[2021-08-02] MEDS: topiramate 100 mg Tablet 50 MG PO ×2 (07:50→17:21)
[2021-08-02] MEDS: aspirin 81 mg EC Tablet PO (07:50)
[2021-08-02] MEDS: duloxetine 30 mg Capsule PO ×2 (07:50→17:21)
[2021-08-02] MEDS: pantoprazole DR 40 mg Tablet PO (07:50)
[2021-08-02] MEDS: insulin lispro 100 unit/1 mL SUBCUT ×4 (07:51→21:49)
--- NOTE | 2021-08-02 09:24 | PC.NURSE ---
Report called to Fadia WEAVER.
--- NOTE | 2021-08-02 10:21 | PC.NURSE ---
Pt transferred to room 271. tolerated well.
[2021-08-02 11:40] LABS: Glucose Point of Care 270 mg/dL (70-110)
[2021-08-02 13:01] LABS: Oxygen Device CPAP
--- NOTE | 2021-08-02 13:58 | P.PN_ITS ---
Subjective Subjective: Patient was seen this morning, currently in ICU, he is awaiting a bed at [facility], he tells me feeling a lot better, he also had an appetite this morning, has not had a bowel movement Vitals/I&O/Wt Last Vital Signs Temp 98.7 F 08/02/21 11:21 Pulse 86 08/02/21 11:21 Resp 17 08/02/21 11:21 BP 138/91 08/02/21 11:21 Pulse Ox 91 08/02/21 11:21 08/01/21 08/02/21 08/02/21 22:59 06:59 14:59 Intake Total 2371.667 / 2721.667 290 / 3011.667 1190 / 1190 Output Total 950 / 1950 1250 / 3200 1100 / 1100 Balance 1421.667 / 771.667 -960 / -188.333 90 / 90 Weight last 48 hrs Weight 176.765 kg Weight 176.538 kg Physical Exam Const: COMMON NORMALS: no acute distress and patient oriented x3 Resp: COMMON NORMALS: normal respiratory effort, No retractions, No use of accessory muscles and clear to auscultation bilaterally AUSCULTATION: clear to auscultation bilaterally Cardio: COMMON NORMALS: regular rate, regular rhythm, S1 normal heart sound pr esent and S2 normal heart sound present RATE: regular rate RHYTHM: regular rhythm HEART SOUNDS: S1 normal heart sound present and S2 normal heart sound present GI: COMMON NORMALS: Normal to inspection, nondistended, normoactive bowel sounds present, Soft to palpation and non-tender PALPATION: Yes Soft to palpation Extremity: NARRATIVE EXTREMITY EXAM: 1+ pitting edema bilateral extremity Right lower extremity jimenez, slight erythema Neuro: COMMON NORMALS: patient oriented x3 Psych: COMMON NORMALS: mental status grossly normal Data : 08/02/21 05:16 08/02/21 05:16 Micro: Microbiology 08/01/21 04:29 Blood Culture - Preliminary Blood NEGATIVE TO DATE 08/01/21 04:26 Blood Culture - Preliminary Blood NEGATIVE TO DATE A&P Assessment and plan (1) SIRS (systemic inflammatory response syndrome): Possible severe sepsis with lactic acidosis, SHREE, acute encephalopathy, with leukocytosis 24.9, tachycardia 115. Afebrile. He is coughing, although no obvious pneumonia on chest x-ray. Possible pulmonary source, possible atypical infection. We will also check COVID-19 PCR. Possible urinary infection, 5-10 RBC, 5-10 WBC. 0-4 squamous pleural cells. Negative nitrates. Assessed with CT abdomen pelvis renal stone protocol. No hydronephrosis noted. Questionable exophytic poorly visualized renal masses in the left kidney. Will need further follow-up later. Definitely has cellulitis of right lower extremity. Additionally obtain duplex of same extremity. Follow-up blood cultures. Empirically continue Zosyn, vancomycin at this time. Lactic acid recheck, slightly better, but not significantly improved, at 6. Unknown prior history of liver disease. Does have alkaline phosphatase elevation as well, which has been rising. Noted upper quadrant pain. Other liver parameters normal. Will obtain limited hepatobiliary ultrasound as well to assess possibility (although lower likelihood) of hepatobiliary infection. Assess echogenicity of the liver. Unknown if any history of liver fibrosis or cirrhosis. This could contribute to lactic acidosis, ketoacidosis. Check topiramate level. Add PPI prophylaxis. Status: Acute (2) Acidosis, lactic: Possible severe sepsis as above. Unknown if prior liver disease. Assess limite d hepatobiliary ultrasound with management as above. Does have INR abnormality, 1.34, not on anticoagulation. Status: Acute (3) Acute kidney injury superimposed on CKD: Possible severe sepsis as above. Possible SHREE secondary sepsis. Possible secondary to NSAID, valsartan. Hold these medications. No hydronephrosis noted on CT renal stone. Received fluid challenge, hold further IVF. Adjusted topiramate dose. Track I&O and weights. Status: Acute (4) Cellulitis: Right lower extremity between knee and ankle dull redness, warmth. RLE> LLE. Assess venous duplex for possibility of DVT. Able to move right foot without problems. No pain. Findings not suggestive of compartment syndrome at the moment. Status: Acute (5) Hyperglycemia: Severe hyperglycemia in the 500s. Also ketones positive in urine. Possible early ketoacidosis cannot be excluded, the pH normal, but makes disorder as does have anion gap acidosis. Possible DKA cannot be excluded. Insulin drip. IV hydration. Follow-up electrolytes, maintaining potassium. Status: Acute (6) Acute encephalopathy: Acute metabolic encephalopathy with possible severe sepsis, with also other abnormalities including SHREE, possible toxic encephalopathy with SHREE and tizani dine or other medications. Hold this medication for now. Management Conditions as above. Status: Acute (7) Rhabdomyolysis: Mild rhabdomyolysis, CK 589. Reassess CK. Status: Acute (8) Renal mass, right: ?Exophytic subcentimeter masses from the RIGHT kidney cannot be further characterized on this unenhanced study due to their small size and no contrast. Will need follow-up after acute illness Status: Acute (9) Hypertension: Blood pressures fluctuating somewhat difficult to measure due to body habitus. Monitor blood pressures for now. Valsartan on hold due to SHREE. Status: Chronic Qualifiers: Hypertension type: essential hypertension Qualified Code(s): I10 - Essential (primary) hypertension (10) Metabolic acidosis: Anion gap anabolic acidosis, lactic acidosis, possible ketoacidosis. Status: Acute (11) Sinus tachycardia: In setting of possible severe sepsis, multiple metabolic abnormalities. Additional assessment as above. Status: Acute (12) ALEX on CPAP: Status: Chronic (13) Type 2 diabetes mellitus with diabetic polyneuropathy: Does not appear to be on metformin. Oral hypoglycemics on hold. Status: Chronic Qualifiers: Diabetes mellitus computer terminal operator insulin use: with alf use Qualified Code(s): E11.42 - Type 2 diabetes mellitus with diabetic polyneuropathy; Z79.4 - senior living (current) use of insulin (14) Bacteremia due to group B Streptococcus: Status: Acute (15) Peripheral vascular disease: Status: Acute (16) Atrial fibrillation with RVR: Status: Acute Plan Troponin level elevated: Mild-moderate troponin elevation, denies any chest pain or pressure. Atrial fibrillation is reported on one of the EKGs, although there are P waves there. Possible prior SC with Q waves in 2, 3 and aVF. Will need further cardiac restratification once he is more stable. For now we will assess with TTE. Possible pulmonary edema: Hold further IVF. Assess TTE. Continue oxygen support and monitor oxygenation. Resume Lasix if needed. CXR in AM. Discussed his condition with one of his sisters over the phone, he understands Gilma is said to be his power of press room supervisor of healthcare, but on my return visit to the room had stepped out, will further discuss with her when able. 76 year old male with past medical history of hypertension diabetes obstructive sleep apnea resident of [place] Came in with chief complaint of generalized weakness, as well as back pain. Group B strep bacteremia -With acute encephalopathy, resolved -With SIRS, sepsis, resolved -With acute renal failure, resolved -With lactic acidosis, resolved -With NSTEMI Plan -Underlying likely right lower extremity cellulitis which is improving -Repeat blood cultures so far negative -Transesophageal echocardiogram within normal limits -For now continue vancomycin, Zosyn, -Follow repeat blood cultures -Monitor mentation -Monitor urine output -Full code -SCDs and heparin for DVT prophylaxis Acute thrombocytopenia -Unlikely to be heparin-induced thrombocytopenia -Likely pseudothrombocytopenia from platelet clumping, l also related to sepsis -Follow HIT panel, A. fib with RVR -Likely secondary to underlying sepsis and SIRS -Heart rates under better control stop amiodarone drip, continue p.o. amiodarone -Hold off on full dose anticoagulation, given thrombocytopenia -Serial EKGs, troponins Acute renal failure, SHREE, rhabdomyolysis -Elevated BUN, likely secondary dehydration, IV fluids Lactic acidosis as above NSTEMI as above Deconditioning, bedbound, repositioning Peripheral vascular disease 1. Moderate disease in the right anterior tibial and posterior tibial arteries with visible runoff to the foot. 2. Calcified plaque with moderate focal stenosis in the left popliteal artery. 3. Severe multifocal disease in the left anterior tibial artery with no visible runoff to the foot. 4. Subcutaneous soft tissue edema or cellulitis in the right lower leg, ankle, and dorsal foot.? -Monitor DP PT pulses -Will will likely require intervention at some point Type 2 diabetes mellitus, with hyperglycemia -Elevated blood sugars increase Lantus to 10 needs daily, high-dose sliding scale Cellulitis, as above ALEX, CPAP Attestations Medical Necessity Statement*: Patient requires hospitalization, right lower extremity cellulitis Coding Level of Care Code Acute Sales Force Administrator for [facility] Fwd Diagnoses SIRS (systemic inflammatory response syndrome) R65.10 Acidosis, lactic E87.2 Acute kidney injury superimposed on CKD N17.9; N18.9 Cellulitis L03.90 Hyperglycemia R73.9 Acute encephalopathy G93.40 Rhabdomyolysis M62.82 Renal mass, right N28.89 Hypertension I10 Hypertension type: essential hypertension Metabolic acidosis E87.2 Sinus tachycardia R00.0 ALEX on CPAP G47.33; Z99.89 Type 2 diabetes mellitus with diabetic polyneuropathy E11.42; Z79.4 Diabetes mellitus computer terminal operator insulin use: with computer terminal operator use Bacteremia due to group B Streptococcus R78.81; B95.1 Peripheral vascular disease I73.9 Atrial fibrillation with RVR I48.91
[2021-08-02 17:03] LABS: Glucose Point of Care 287 mg/dL (70-110)
[2021-08-02] MEDS: polyethylene glycol 3350 Pkt 17 gm PO (17:20)
[2021-08-02] MEDS: docusate sodium 100 mg Capsule PO (17:20)
[2021-08-03] VITALS (11 sets, daily range): BP systolic 137–175; BP diastolic 78–102; PULSE 94–125; RESP 20–22; TEMP 36.4–37.1; O2SAT 95–104
[2021-08-03] MEDS: piperacillin-tazobactam 3.375 GM in sodium chloride 0.9% (plus) 50 ML IV ×3 (00:54→15:30)
[2021-08-03 05:20] LABS: Basophils # 0.1 10^3/uL (0.0-0.1); Basophils % 0.4 %; Eosinophils % 0.1 %; Hemoglobin 14.2 g/dL (11.7-16.6); Lymphocytes # 1.1 10^3/uL (0.8-4.8); Lymphocytes % 5.4 %; Mean Corpuscular HGB Conc 33.8 g/dL (30.0-36.0); Mean Corpuscular Hemoglobin 29.1 pg (28.0-34.0); Mean Corpuscular Volume 86.1 fl (80-94); Mean Platelet Volume 12.8 fL (7.4-10.4); Monocytes # 1.6 10^3/uL (0.2-0.9); Monocytes % 7.9 %; Neutrophils # 16.53 10^3/uL (1.8-7.7); Neutrophils % 82.6 %; Nucleated Red Blood Cells % 0 %; Platelet Count 154 10^3/cmm (130-400); Red Blood Count 4.88 10^6/uL (4.1-5.3); Red Cell Distribution Width 13.3 % (12.1-15.1)
[2021-08-03] MEDS: vancomycin 1,500 MG/300 ML PIGGYBACK 150 MG IV (05:32)
[2021-08-03 05:40] LABS: Alanine Aminotransferase 22 U/L (0-41); Albumin Level 2.2 g/dL (3.5-5.2); Alkaline Phosphatase 159 IU/L (40-130); Anion Gap 18.8 (5-19); Aspartate Amino Transferase 22 U/L (0-40); Blood Urea Nitrogen 68 mg/dL (8-23); Calcium 8.9 mg/dL (8.5-10.5); Carbon Dioxide 20 mmol/L (22-29); Chloride 105 mmol/L (98-107); Globulin 4.3 g/dL (1.3-4.6); Glucose 240 mg/dL (65-115); Osmolality Calculated 318 mOsm/kg (285-295); Potassium 3.8 mmol/L (3.5-5.1); Sodium 140 mmol/L (136-145); Total Bilirubin 0.8 mg/dL (0.15-1.2); Total Protein 6.5 g/dL (6.6-8.7)
[2021-08-03] MEDS: heparin 5,000 unit/mL INJ 1 mL 5000 UNIT SUBCUT ×2 (05:40→18:40)
[2021-08-03 05:42] LABS: Vancomycin Trough 14.8 ug/mL (10-15)
[2021-08-03] MEDS: insulin glargine 100 units/1 mL 15 UNIT SUBCUT ×2 (05:50→18:44)
[2021-08-03 06:37] LABS: Glucose Point of Care 211 mg/dL (70-110)
[2021-08-03] MEDS: topiramate 100 mg Tablet 50 MG PO ×2 (08:35→18:40)
[2021-08-03] MEDS: pantoprazole DR 40 mg Tablet PO (08:35)
[2021-08-03] MEDS: dilTIAZem ER (24HR) 180 mg Capsule PO (08:35)
[2021-08-03] MEDS: duloxetine 30 mg Capsule PO ×2 (08:35→18:40)
[2021-08-03] MEDS: amiodarone 200 mg Tablet 400 MG PO ×2 (08:35→18:40)
[2021-08-03] MEDS: insulin lispro 100 unit/1 mL SUBCUT ×4 (08:40→21:48)
[2021-08-03] MEDS: metoprolol tartrate 25 mg Tablet 12.5 MG PO ×2 (08:44→21:45)
[2021-08-03] MEDS: nystatin powder 15 gm Btl 1 APPLIC TOPICAL ×2 (11:36→18:41)
[2021-08-03 11:48] LABS: Glucose Point of Care 297 mg/dL (70-110)
[2021-08-03 12:22] LABS: Heparin Induced Platelet AB NEGATIVE (NEGATIVE); Patient O.D 0.177
--- NOTE | 2021-08-03 13:12 | PC.SOCIAL ---
IMM Updated Updated pt on IMM. No questions voiced. Provided pt a copy. Initialed dated, & timed copy in chart.
--- NOTE | 2021-08-03 14:45 | P.PN_ITS ---
Subjective Subjective: Patient was seen this morning, he is alert to person, to place, not to time, he has no pain complaints, no fevers, no chills, Vitals/I&O/Wt Last Vital Signs Temp 97.8 F 08/03/21 11:18 Pulse 104 H 08/03/21 12:00 Resp 22 H 08/03/21 11:18 BP 137/93 08/03/21 11:18 Pulse Ox 97 08/03/21 11:46 08/02/21 08/03/21 08/03/21 22:59 06:59 14:59 Intake Total 1530.000 / 2720.000 770 / 3490.000 1190 / 1190 Output Total 700 / 1800 Balance 1530.000 / 1620.000 70 / 8184.377 9141 / 1190 Weight last 48 hrs Weight 178.942 kg Weight 176.765 kg Physical Exam Const: COMMON NORMALS: no acute distress ORIENTATION/CONSCIOUSNESS: Yes awake, Yes oriented to person and Yes oriented to place Resp: COMMON NORMALS: normal respiratory effort, No retractions, No use of accessory muscles and clear to auscultation bilaterally AUSCULTATION: clear to auscultation bilaterally Cardio: COMMON NORMALS: regular rate, regular rhythm, S1 normal heart sound present and S2 normal heart sound present RATE: regular rate RHYTHM: regular rhythm HEART SOUNDS: S1 normal heart sound present and S2 normal heart sound present GI: COMMON NORMALS: Normal to inspection, nondistended, normoactive bowel sounds present, Soft to palpation and non-tender PALPATION: Yes Soft to palpation Extremity: NARRATIVE EXTREMITY EXAM: Bilateral lower extremity, 1+ pitting edema, right lower extremity, erythema, mid jimenez, to forefoot Neuro: SENSORIUM/ORIENTATION: Yes oriented to person and Yes oriented to place Data : 08/03/21 05:04 08/03/21 05:04 Micro: Microbiology 08/03/21 09:52 Occult Blood (FIT) - Final Stool Routine Collection A&P Assessment and plan (1) SIRS (systemic inflammatory response syndrome): Possible severe sepsis with lactic acidosis, SHREE, acute encephalopathy, with leukocytosis 24.9, tachycardia 115. Afebrile. He is coughing, although no obvious pneumonia on chest x-ray. Possible pulmonary source, possible atypical infection. We will also check COVID-19 PCR. Possible urinary infection, 5-10 RBC, 5-10 WBC. 0-4 squamous pleural cells. Negative nitrates. Assessed with CT abdomen pelvis renal stone protocol. No hydronephrosis noted. Questionable exophytic poorly visualized renal masses in the left kidney. Will need further follow-up later. Definitely has cellulitis of right lower extremity. Additionally obtain duplex of same extremity. Follow-up blood cultures. Empirically continue Zosyn, vancomycin at this time. Lactic acid recheck, slightly better, but not significantly improved, at 6. Un known prior history of liver disease. Does have alkaline phosphatase elevation as well, which has been rising. Noted upper quadrant pain. Other liver parameters normal. Will obtain limited hepatobiliary ultrasound as well to assess possibility (although lower likelihood) of hepatobiliary infection. Assess echogenicity of the liver. Unknown if any history of liver fibrosis or cirrhosis. This could contribute to lactic acidosis, ketoacidosis. Check topiramate level. Add PPI prophylaxis. Status: Acute (2) Acidosis, lactic: Possible severe sepsis as above. Unknown if prior liver disease. Assess limited hepatobiliary ultrasound with management as above. Does have INR abnormality, 1.34, not on anticoagulation. Status: Acute (3) Acute kidney injury superimposed on CKD: Possible severe sepsis as above. Possible SHREE secondary sepsis. Possible seco ndary to NSAID, valsartan. Hold these medications. No hydronephrosis noted on CT renal stone. Received fluid challenge, hold further IVF. Adjusted topiramate dose. Track I&O and weights. Status: Acute (4) Cellulitis: Right lower extremity between knee and ankle dull redness, warmth. RLE> LLE. Assess venous duplex for possibility of DVT. Able to move right foot without problems. No pain. Findings not suggestive of compartment syndrome at the moment. Status: Acute (5) Hyperglycemia: Severe hyperglycemia in the 500s. Also ketones positive in urine. Possible early ketoacidosis cannot be excluded, the pH normal, but makes disorder as does have anion gap acidosis. Possible DKA cannot be excluded. Insulin drip. IV hydration. Follow-up electrolytes, maintaining potassium. Status: Acute (6) Acute encephalopathy: Acute metabolic encephalopathy with possible severe sepsis, with also other abnormalities including SHREE, possible toxic encephalopathy with SHREE and tizanidine or other medications. Hold this medication for now. Management Conditions as above. Status: Acute (7) Rhabdomyolysis: Mild rhabdomyolysis, CK 589. Reassess CK. Status: Acute (8) Renal mass, right: ?Exophytic subcentimeter masses from the RIGHT kidney cannot be further charact erized on this unenhanced study due to their small size and no contrast. Will need follow-up after acute illness Status: Acute (9) Hypertension: Blood pressures fluctuating somewhat difficult to measure due to body habitus. Monitor blood pressures for now. Valsartan on hold due to SRHEE. Status: Chronic Qualifiers: Hypertension type: essential hypertension Qualified Code(s): I10 - Essential (primary) hypertension (10) Metabolic acidosis: Anion gap anabolic acidosis, lactic acidosis, possible ketoacidosis. Status: Acute (11) Sinus tachycardia: In setting of possible severe sepsis, multiple metabolic abnormalities. Additional assessment as above. Status: Acute (12) ALEX on CPAP: Status: Chronic (13) Type 2 diabetes mellitus with diabetic polyneuropathy: Does not appear to be on metformin. Oral hypoglycemics on hold. Status: Chronic Qualifiers: Diabetes mellitus bed bug exterminator insulin use: with bed bug exterminator use Qualified Code(s): E11.42 - Type 2 diabetes mellitus with diabetic polyneuropathy; Z79.4 - bed bug exterminator (current) use of insulin (14) Bacteremia due to group B Streptococcus: Status: Acute (15) Peripheral vascular disease: Status: Acute (16) Atrial fibrillation with RVR: Status: Acute Plan Troponin level elevated: Mild-moderate troponin elevation, denies any chest pain or pressure. Atrial fibrillation is reported on one of the EKGs, although there are P waves there. Possible prior TN with Q waves in 2, 3 and aVF. Will need further cardiac restratification once he is more stable. For now we will assess with TTE. Possible pulmonary edema: Hold further IVF. Assess TTE. Continue oxygen support and monitor oxygenation. Resume Lasix if needed. CXR in AM. Discussed his condition with one of his sisters over the phone, he understands Gilma is said to be his power of consumer attorney of healthcare, but on my return visit to the room had stepped out, will further discuss with her when able. 76 year old male with past medical history of hypertension diabetes obstructive sleep apnea resident of [place] Came in with chief complaint of generalized weakness, as well as back pain. Group B strep bacteremia -With acute encephalopathy, resolved -With SIRS, sepsis, resolved -With acute renal failure, resolved -With lactic acidosis, resolved -With NSTEMI Plan -Underlying likely right lower extremity cellulitis which is improving -Repeat blood cultures so far negative -Transesophageal echocardiogram within normal limits -For now continue vancomycin, Zosyn, -Follow repeat blood cultures -Monitor mentation -Monitor urine output -Full code -SCDs and heparin for DVT prophylaxis Fluid overload, will give 1 dose of Lasix, stop fluids Acute thrombocytopenia -Unlikely to be heparin-induced thrombocytopenia -Likely pseudothrombocytopenia from platelet clumping, also related to sepsis -Follow HIT panel, A. fib with RVR -Likely secondary to underlying sepsis and SIRS -Heart rates under better control stop amiodarone drip, continue p.o. amiodarone -Hold off on full dose anticoagulation, given thrombocytopenia -Serial EKGs, troponins Acute renal failure, SHREE, rhabdomyolysis -Elevated BUN, likely secondary dehydration, IV fluids Lactic acidosis as above NSTEMI as above Deconditioning, bedbound, repositioning Peripheral vascular disease 1. Moderate disease in the right anterior tibial and posterior tibial arteries with visible runoff to the foot. 2. Calcified plaque with moderate focal stenosis in the left popliteal artery. 3. Severe multifocal disease in the left anterior tibial artery with no visible runoff to the foot. 4. Subcutaneous soft tissue edema or cellulitis in the right lower leg, ankle, and dorsal foot.? -Monitor DP PT pulses -Will will likely require intervention at some point Type 2 diabetes mellitus, with hyperglycemia -Elevated blood sugars increase Lantus to 10 needs daily, high-dose sliding scale Cellulitis, as above Acute on chronic anemia, Hemoccult stools positive, hold off on anticoagulation Protonix, Carafate, monitor hemoglobin ALEX, CPAP Attestations Medical Necessity Statement*: Patient requires hospitalization for cellulitis, fluid overload, anemia, thrombocytopenia Coding Level of Care Code Acute Dispute Coordinator for [facility] Fwd Diagnoses SIRS (systemic inflammatory response syndrome) R65.10 Acidosis, lactic E87.2 Acute kidney injury superimposed on CKD N17.9; N18.9 Cellulitis L03.90 Hyperglycemia R73.9 Acute encephalopathy G93.40 Rhabdomyolysis M62.82 Renal mass, right N28.89 Hypertension I10 Hypertension type: essential hypertension Metabolic acidosis E87.2 Sinus tachycardia R00.0 ALEX on CPAP G47.33; Z99.89 Type 2 diabetes mellitus with diabetic polyneuropathy E11.42; Z79.4 Diabetes mellitus bed bug exterminator insulin use: with bed bug exterminator use Bacteremia due to group B Streptococcus R78.81; B95.1 Peripheral vascular disease I73.9 Atrial fibrillation with RVR I48.91
[2021-08-03] MEDS: FUROsemide 10 mg/mL SDV 4mL 40 MG IVP (15:30)
[2021-08-03] MEDS: sucralfate 1 gm Tablet PO ×2 (18:44→21:51)
--- NOTE | 2021-08-03 20:26 | PC.NURSE ---
Spoke with regarding patient with positive stool occult today and tonight having hematuria with garcia. Order to check UA and irrigate garcia.
--- NOTE | 2021-08-03 20:45 | P.EN_ITS ---
Event Note Event Note: Called with patient having hematuria. Urine red with some clots but still transparent. Also had heme + stool earlier today. Last hemoglobin, platelets and INR okay, though has recently had low platelets. Have held heparin SQ, ordered UA and asked nurse to do some manual irrigation to see if ca n clear urine. No report on garcia trauma, but patient gets turned frequently so a possibility.
[2021-08-03 22:00] LABS: Glucose Point of Care 231 mg/dL (70-110)
[2021-08-03 22:00] LABS: Glucose Point of Care 274 mg/dL (70-110)
--- NOTE | 2021-08-03 22:17 | PC.NURSE ---
Spoke with DR Burciaga regarding patients urine continues to be bloody despite Irrigation. ordered to continue irrigating garcia manually throughout the night till clear.
[2021-08-04] VITALS (12 sets, daily range): BP systolic 110–166; BP diastolic 51–83; PULSE 94–114; RESP 17–23; TEMP 36.6–37.4; O2SAT 95–100
[2021-08-04] MEDS: piperacillin-tazobactam 3.375 GM in sodium chloride 0.9% (plus) 50 ML IV ×2 (00:31→08:24)
[2021-08-04 00:38] LABS: Add Urine Microscopic? YES; Bilirubin Urine Neg (Negative); Blood Urine 3+ (Negative); Glucose Urine UA Norm (Normal); Ketones Urine Negative (Negative); Leukocyte Esterase Urine Trace (Negative); Nitrate Urine Negative (Negative); Protein Urine 3+ (Negative); Specific Gravity, Urine 1.015 (1.005-1.030); Urine Appearance Cloudy (CLEAR); Urine Color Red (Yellow); Urobilinogen Urine Norm (Negative); pH Urine 5 (5-7)
[2021-08-04 00:40] LABS: RBC Urine >100 /hpf (0-2); Squamous Epithelial Cell Urine 0-4 /hpf (0-5)
[2021-08-04 00:41] LABS: Add Urine Culture? Yes; Bacteria Urine TRACE /hpf; Mucus Urine TRACE /hpf
[2021-08-04] MEDS: pantoprazole DR 40 mg Tablet PO (02:00)
[2021-08-04 04:19] LABS: Basophils # 0.1 10^3/uL (0.0-0.1); Basophils % 0.2 %; Eosinophils # 0.1 10^3/uL (0.0-0.8); Eosinophils % 0.2 %; Hematocrit 37.3 % (42.0-52.0); Hemoglobin 12.8 g/dL (11.7-16.6); Lymphocytes # 1.2 10^3/uL (0.8-4.8); Lymphocytes % 4.7 %; Mean Corpuscular HGB Conc 34.3 g/dL (30.0-36.0); Mean Corpuscular Hemoglobin 29.2 pg (28.0-34.0); Mean Corpuscular Volume 85.2 fl (80-94); Mean Platelet Volume 12.6 fL (7.4-10.4); Monocytes # 1.5 10^3/uL (0.2-0.9); Neutrophils # 21.62 10^3/uL (1.8-7.7); Neutrophils % 87.3 %; Nucleated Red Blood Cells % 0 %; Platelet Count 204 10^3/cmm (130-400); Red Blood Count 4.38 10^6/uL (4.1-5.3); Red Cell Distribution Width 13.5 % (12.1-15.1); White Blood Count 24.8 10^3/uL (4.0-10.0)
[2021-08-04 04:42] LABS: Alanine Aminotransferase 17 U/L (0-41); Albumin Level 1.7 g/dL (3.5-5.2); Alkaline Phosphatase 133 IU/L (40-130); Anion Gap 17.6 (5-19); Aspartate Amino Transferase 18 U/L (0-40); Calcium 8.4 mg/dL (8.5-10.5); Carbon Dioxide 19 mmol/L (22-29); Chloride 102 mmol/L (98-107); Glucose 199 mg/dL (65-115); Osmolality Calculated 314 mOsm/kg (285-295); Potassium 3.6 mmol/L (3.5-5.1); Sodium 135 mmol/L (136-145); Total Bilirubin 0.8 mg/dL (0.15-1.2); Total Protein 5.7 g/dL (6.6-8.7)
[2021-08-04 04:50] LABS: Blood Urea Nitrogen 91 mg/dL (8-23)
[2021-08-04] MEDS: insulin glargine 100 units/1 mL 15 UNIT SUBCUT ×2 (05:55→18:27)
--- NOTE | 2021-08-04 06:00 | PC.NURSE ---
Patient required frequent garcia irrigation throughout the night with many small to large clots, urine continues with hematuria.
[2021-08-04] MEDS: polyethylene glycol 3350 Pkt 17 gm PO (08:24)
[2021-08-04] MEDS: aspirin 81 mg EC Tablet PO (08:25)
[2021-08-04] MEDS: duloxetine 30 mg Capsule PO ×2 (08:25→17:40)
[2021-08-04] MEDS: metoprolol tartrate 25 mg Tablet 12.5 MG PO ×2 (08:25→20:23)
[2021-08-04] MEDS: dilTIAZem ER (24HR) 180 mg Capsule PO (08:25)
[2021-08-04] MEDS: topiramate 100 mg Tablet 50 MG PO ×2 (08:25→17:40)
[2021-08-04] MEDS: amiodarone 200 mg Tablet 400 MG PO ×2 (08:25→17:41)
[2021-08-04] MEDS: docusate sodium 100 mg Capsule PO ×2 (08:25→18:29)
[2021-08-04] MEDS: insulin lispro 100 unit/1 mL SUBCUT ×4 (08:26→21:53)
[2021-08-04] MEDS: nystatin powder 15 gm Btl 1 APPLIC TOPICAL ×2 (08:27→18:49)
[2021-08-04] MEDS: fluconazole premix 200 MG/100 ML PREMIX 100 MG IV (09:15)
[2021-08-04 09:17] LABS: Glucose Point of Care 176 mg/dL (70-110)
[2021-08-04] MEDS: sodium chloride 0.9% 1,000 ML 50 ML IV (09:40)
--- NOTE | 2021-08-04 10:00 | PC.NURSE ---
Garcia irrigated per PRN order. No clots noted when garcia was irrigated
[2021-08-04 11:53] LABS: Glucose Point of Care 212 mg/dL (70-110)
--- NOTE | 2021-08-04 14:23 | PM.PN ---
Subjective Subjective: Patient was seen this morning, overnight he had significant hematuria, denies any flank pain, no abdominal pain complaints, Martins catheter is in place, Vitals/I&O/Wt Last Vital Signs Temp 99.4 F 08/04/21 12:00 Pulse 114 H 08/04/21 14:00 Resp 20 H 08/04/21 12:00 BP 115/71 08/04/21 12:00 Pulse Ox 99 08/04/21 12:00 08/03/21 08/04/21 08/04/21 22:59 06:59 14:59 Intake Total 790 / 1980 2720 / 4700 1750 / 1750 Output Total 1700 / 1700 700 / 2400 850 / 850 Balance -910 / 280 2020 / 2300 900 / 900 Weight last 48 hrs Weight 180.258 kg Weight 178.942 kg Physical Exam Const: COMMON NORMALS: no acute distress ORIENTATION/CONSCIOUSNESS: Yes awake, Yes oriented to person and Yes oriented to place; not oriented to time Resp: COMMON NORMALS: normal respiratory effort, No retractions, No use of accessory muscles and clear to auscultation bilaterally AUSCULTATION: clear to auscultation bilaterally Cardio: COMMON NORMALS: regular rate, regular rhythm, S1 normal heart sound present and S2 normal heart sound present RATE: regular rate RHYTHM: regular rhythm HEART SOUNDS: S1 normal heart sound present and S2 normal heart sound present GI: COMMON NORMALS: Normal to inspection, nondistended, normoactive bowel sounds present, Soft to palpation and No hepatosplenomegaly present PALPATION: Yes Soft to palpation and Yes No hepatosplenomegaly present Extremity: COMMON NORMALS: no pedal edema NARRATIVE EXTREMITY EXAM: Right lower extremity, area of erythema, mid jimenez, significantly improved, nonpitting edema Neuro: SENSORIUM/ORIENTATION: Yes oriented to person, Yes oriented to place and No oriented to time Psych: COMMON NORMALS: mental status grossly normal Data : 08/04/21 04:08 08/04/21 04:08 Micro: Microbiology 07/30/21 03:37 Blood Culture - Final Blood NO GROWTH AFTER 5 DAYS 08/03/21 09:52 Occult Blood (FIT) - Final Stool Routine Collection A&P Assessment and plan (1) SIRS (systemic inflammatory response syndrome): Possible severe sepsis with lactic acidosis, SHREE, acute encephalopathy, with leukocytosis 24.9, tachycardia 115. Afebrile. He is coughing, although no obvious pneumonia on chest x-ray. Possible pulmonary source, possible atypical infection. We will also check COVID-19 PCR. Possible urinary infection, 5-10 RBC, 5-10 WBC. 0-4 squamous pleural cells. Negative nitrates. Assessed with CT abdomen pelvis renal stone protocol. No hydronephrosis noted. Questionable exophytic poorly visualized renal masses in the left kidney. Will need further follow-up later. Definitely has cellulitis of right lower extremity. Additionally obtain duplex of same extremity. Follow-up blood cultures. Empirically continue Zosyn, vancomycin at this time. Lactic acid recheck, slightly better, but not significantly improved, at 6. Unknown prior history of liver disease. Does have alkaline phosphatase elevation as well, which has been rising. Noted upper quadrant pain. Other liver parameters normal. Will obtain limited hepatobiliary ultrasound as well to assess possibility (although lower likelihood) of hepatobiliary infection. Assess echogenicity of the liver. Unknown if any history of liver fibrosis or cirrhosis. This could contribute to lactic acidosis, ketoacidosis. Check topiramate level. Add PPI prophylaxis. Status: Acute (2) Acidosis, lactic: Possible severe sepsis as above. Unknown if prior liver disease. Assess limited hepatobiliary ultrasound with management as above. Does have INR abnormality, 1.34, not on anticoagulation. Status: Acute (3) Acute kidney injury superimposed on CKD: Possible severe sepsis as above. Possible SHREE secondary sepsis. Possible secondary to NSAID, valsartan. Hold these medications. No hydronephrosis noted on CT renal stone. Received fluid challenge, hold further IVF. Adjusted topiramate dose. Track I&O and weights. Status: Acute (4) Cellulitis: Right lower extremity between knee and ankle dull redness, warmth. RLE> LLE. Assess venous duplex for possibility of DVT. Able to move right foot without problems. No pain. Findings not suggestive of compartment syndrome at the moment. Status: Acute (5) Hyperglycemia: Severe hyperglycemia in the 500s. Also ketones positive in urine. Possible early ketoacidosis cannot be excluded, the pH normal, but makes disorder as does have anion gap acidosis. Possible DKA cannot be excluded. Insulin drip. IV hydration. Follow-up electrolytes, maintaining potassium. Status: Acute (6) Acute encephalopathy: Acute metabolic encephalopathy with possible severe sepsis, with also other abnormalities including SHREE, possible toxic encephalopathy with SHREE and tizanidine or other medications. Hold this medication for now. Management Conditions as above. Status: Acute (7) Rhabdomyolysis: Mild rhabdomyolysis, CK 589. Reassess CK. Status: Acute (8) Renal mass, right: ?Exophytic subcentimeter masses from the RIGHT kidney cannot be further characterized on this unenhanced study due to their small size and no contrast. Will need follow-up after acute illness Status: Acute (9) Hypertension: Blood pressures fluctuating somewhat difficult to measure due to body habitus. Monitor blood pressures for now. Valsartan on hold due to SRHEE. Status: Chronic Qualifiers: Hypertension type: essential hypertension Qualified Code(s): I10 - Essential (primary) hypertension (10) Metabolic acidosis: Anion gap anabolic acidosis, lactic acidosis, possible ketoacidosis. Status: Acute (11) Sinus tachycardia: In setting of possible severe sepsis, multiple metabolic abnormalities. Additional assessment as above. Status: Acute (12) ALEX on CPAP: Status: Chronic (13) Type 2 diabetes mellitus with diabetic polyneuropathy: Does not appear to be on metformin. Oral hypoglycemics on hold. 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 Atrial fibrillation is reported on one of the EKGs, although there are P waves there. Possible prior [place] with Q waves in 2, 3 and aVF. Will need further cardiac restratification once he is more stable. For now we will assess with TTE. Possible pulmonary edema: Hold further IVF. Assess TTE. Continue oxygen support and monitor oxygenation. Resume Lasix if needed. CXR in AM. Discussed his condition with one of his sisters over the phone, he understands Gilma is said to be his power of civil litigation attorney of healthcare, but on my return visit to the room had stepped out, will further discuss with her when able. 76 year old male with past medical history of hypertension diabetes obstructive sleep apnea resident of [place] Came in with chief complaint of generalized weakness, as well as back pain. Group B strep bacteremia -With acute encephalopathy, resolved -With SIRS, sepsis, resolved -With acute renal failure, resolved -With lactic acidosis, resolved -With NSTEMI Plan -Underlying likely right lower extremity cellulitis which is improving -Repeat blood cultures so far negative -Transesophageal echocardiogram within normal limits -For now continue vancomycin -Follow repeat blood cultures -Monitor mentation -Monitor urine output -Full code -SCDs DVT prophylaxis UA with evidence of UTI, has ESBL risk factors, on Zosyn, switched to Primaxin, add fluconazole Hematuria, continue to monitor, flush Martins catheter as needed, might require continuous bladder irrigation, will monitor for now, hold heparin Acute thrombocytopenia -Unlikely to be heparin-induced thrombocytopenia -Likely pseudothrombocytopenia from platelet clumping, also related to sepsis -Follow HIT panel, A. fib with RVR -Likely secondary to underlying sepsis and SIRS -Heart rates under better control stop amiodarone drip, continue p.o. amiodarone -Hold off on full dose anticoagulation, given thrombocytopenia -Serial EKGs, troponins Acute renal failure, SHREE, rhabdomyolysis -Elevated BUN today, creatinine 2.7 -Elevated BUN, likely start IV fluids Lactic acidosis as above NSTEMI as above Deconditioning, bedbound, repositioning Peripheral vascular disease 1. Moderate disease in the right anterior tibial and posterior tibial arteries with visible runoff to the foot. 2. Calcified plaque with moderate focal stenosis in the left popliteal artery. 3. Severe multifocal disease in the left anterior tibial artery with no visible runoff to the foot. 4. Subcutaneous soft tissue edema or cellulitis in the right lower leg, ankle, and dorsal foot.? -Monitor DP PT pulses -Will will likely require intervention at some point Type 2 diabetes mellitus, with hyperglycemia -Elevated blood sugars increase Lantus to 10 needs daily, high-dose sliding scale Cellulitis, as above Acute on chronic anemia, Hemoccult stools positive, hold off on anticoagulation Protonix, Carafate, monitor hemoglobin ALEX, CPAP Attestations Medical Necessity Statement*: Patient requires hospitalization for cellulitis, group B strep, now with hematuria, Coding Level of Care Code Acute Allergy Specialist for [facility] F[facility] Diagnoses SIRS (systemic inflammatory response syndrome) R65.10 Acidosis, lactic E87.2 Acute kidney injury superimposed on CKD N17.9; N18.9 Cellulitis L03.90 Hyperglycemia R73.9 Acute encephalopathy G93.40 Rhabdomyolysis M62.82 Renal mass, right N28.89 Hypertension I10 Hypertension type: essential hypertension Metabolic acidosis E87.2 Sinus tachycardia R00.0 ALEX on CPAP G47.33; Z99.89 Type 2 diabetes mellitus with diabetic polyneuropathy E11.42; Z79.4 Diabetes mellitus residential insulin use: with residential use Bacteremia due to group B Streptococcus R78.81; B95.1 Peripheral vascular disease I73.9 Atrial fibrillation with RVR I48.91
--- NOTE | 2021-08-04 17:03 | PC.NURSE ---
Martins irrigated at this time. Small clots noted during this irrigation. Will continue to monitor. Will pass on care to oncoming nurse.
[2021-08-04 17:28] LABS: Glucose Point of Care 201 mg/dL (70-110)
[2021-08-04] MEDS: sucralfate 1 gm Tablet PO ×2 (18:28→20:23)
[2021-08-05] VITALS (14 sets, daily range): BP systolic 116–146; BP diastolic 9–83; PULSE 92–108; RESP 18–24; TEMP 36.4–37.3; O2SAT 94–99
[2021-08-05 04:43] LABS: Basophils # 0.1 10^3/uL (0.0-0.1); Basophils % 0.2 %; Eosinophils # 0.1 10^3/uL (0.0-0.8); Eosinophils % 0.3 %; Hematocrit 40.3 % (42.0-52.0); Hemoglobin 13.4 g/dL (11.7-16.6); Lymphocytes % 3.8 %; Mean Corpuscular HGB Conc 33.3 g/dL (30.0-36.0); Mean Corpuscular Hemoglobin 28.8 pg (28.0-34.0); Mean Corpuscular Volume 86.5 fl (80-94); Mean Platelet Volume 11.9 fL (7.4-10.4); Monocytes # 1.5 10^3/uL (0.2-0.9); Monocytes % 5.5 %; Neutrophils # 23.81 10^3/uL (1.8-7.7); Neutrophils % 88.2 %; Nucleated Red Blood Cells % 0 %; Platelet Count 291 10^3/cmm (130-400); Red Blood Count 4.66 10^6/uL (4.1-5.3); Red Cell Distribution Width 13.8 % (12.1-15.1)
[2021-08-05] MEDS: pantoprazole DR 40 mg Tablet PO ×2 (04:44→13:43)
[2021-08-05 05:00] LABS: Alanine Aminotransferase 17 U/L (0-41); Albumin Level 2.2 g/dL (3.5-5.2); Alkaline Phosphatase 152 IU/L (40-130); Anion Gap 18.7 (5-19); Aspartate Amino Transferase 17 U/L (0-40); C Reactive Protein 152.4 mg/L (0.0-4.9); Calcium 8.5 mg/dL (8.5-10.5); Carbon Dioxide 19 mmol/L (22-29); Chloride 105 mmol/L (98-107); Creatine Phosphokinase 33 U/L (39-308); Globulin 4.1 g/dL (1.3-4.6); Glucose 194 mg/dL (65-115); Magnesium 2.4 mg/dL (1.7-2.3); Osmolality Calculated 324 mOsm/kg (285-295); Phosphorus 6.3 mg/dL (2.5-4.5); Potassium 3.7 mmol/L (3.5-5.1); Sodium 139 mmol/L (136-145); Total Bilirubin 0.8 mg/dL (0.15-1.2); Total Protein 6.3 g/dL (6.6-8.7)
[2021-08-05 05:07] LABS: Blood Urea Nitrogen 99 mg/dL (8-23)
[2021-08-05 06:55] LABS: Glucose Point of Care 217 mg/dL (70-110)
[2021-08-05 06:55] LABS: Glucose Point of Care 209 mg/dL (70-110)
[2021-08-05] MEDS: insulin lispro 100 unit/1 mL SUBCUT ×4 (08:13→22:20)
[2021-08-05] MEDS: sucralfate 1 gm Tablet PO ×4 (08:13→22:09)
[2021-08-05] MEDS: duloxetine 30 mg Capsule PO ×2 (08:14→17:10)
[2021-08-05] MEDS: aspirin 81 mg EC Tablet PO (08:14)
[2021-08-05] MEDS: polyethylene glycol 3350 Pkt 17 gm PO (08:14)
[2021-08-05] MEDS: docusate sodium 100 mg Capsule PO ×2 (08:14→17:10)
[2021-08-05] MEDS: dilTIAZem ER (24HR) 180 mg Capsule PO (08:14)
[2021-08-05] MEDS: metoprolol tartrate 25 mg Tablet 12.5 MG PO ×2 (08:21→22:09)
[2021-08-05] MEDS: amiodarone 200 mg Tablet 400 MG PO (08:21)
[2021-08-05] MEDS: topiramate 100 mg Tablet 50 MG PO ×2 (08:22→17:09)
[2021-08-05] MEDS: nystatin powder 15 gm Btl 1 APPLIC TOPICAL ×2 (08:22→17:10)
[2021-08-05] MEDS: fluconazole premix 200 MG/100 ML PREMIX 100 MG IV (08:57)
--- NOTE | 2021-08-05 11:05 | PC.NURSE ---
Patient started on CBI. Patient tolerated well.
[2021-08-05 11:30] LABS: Glucose Point of Care 194 mg/dL (70-110)
--- NOTE | 2021-08-05 12:59 | P.CONIM_ITS ---
Providers/Reason For Consult Consulting Physician/Specialty*: Nephrology Reason for Consult*: eval for SHREE Attending Physician: Aba Carreon MD Primary Care Provider: Domingo Lazcano DO History of Present Illness History of Present Illness Thank for consultation, today at the pleasure of reviewing this 76-year-old gentleman for evaluation of acute kidney injury and possible uremia. He presented back on 07/29/2021 with generalized weakness, found to have worsening swelling and tight skin around the right lower extremity. Venous duplex was without CT scan and hyperglycemia. Is also noted that he had acute encephalopathy even at the state. Initial imaging of the kidneys demonstrated an exophytic subcentimeter mass in the right kidney but otherwise no acute abnormality seen with the kidneys. Over the last few days it was noted that he was confused, atrial fibrillation with a heart rate in the 140s. Also treated for urinary tract infection. He received combination antibiotics with Zosyn and vancomycin. Blood culture subsequently grew out group B streptococci demonstrated no intracavitary/valvular masses or vegetations. Normal LV size and ejection fraction. Last night it was noted that he had beba hematuria. Dr. Tripathi from urology has been consulted. Back on 07/29 serum creatinine was 2, it stayed roughly in the low 2 range drifting down to 1.4 on 08/02, however, over the last 2 days creatinine has drifted up to 2.7. BUN is also up to 99 today, has been much lower throughout his hospitalization. Urine output has been good, yesterday he produced 2850 mL. He has not been eating or drinking too much over the last few days although this did improve this morning. Hemoglobin levels have been stable although he was Hemoccult positive. He does still have some lower extremity edema and some scrotal edema but no other features of hypervolemia at this time. He did get a CT scan with IV contrast on 07/29 but no exposure to intravenous contrast since. Medications/Allergies Home Medications Medication Instructions Recorded Confirmed Last Taken Type duloxetine 30 mg capsule,delayed 30 mg PO BID #60 cap 04/07/19 07/29/21 Unknown Rx release (Cymbalta) furosemide 40 mg tablet (Lasix) 40 mg PO DAILY PRN #30 tab 04/07/19 07/29/21 Unknown Rx valsartan 160 mg tablet 160 mg PO DAILY #30 tab 04/07/19 07/29/21 Unknown Rx topiramate 100 mg tablet (Topamax) 100 mg PO BID #60 tab 04/22/19 07/29/21 Unknown Rx alogliptin 12.5 mg tablet 12.5 mg PO DAILY 07/29/21 07/29/21 Unknown History aspirin 81 mg tablet,delayed 81 mg PO DAILY 07/29/21 07/29/21 Unknown History release cetirizine 5 mg tablet 5 mg PO DAILY PRN 07/29/21 07/29/21 Unknown History cholecalciferol (vitamin D3) 25 25 mcg PO DAILY 07/29/21 07/29/21 Unknown History mcg (1,000 unit) tablet (Vitamin D3) diltiazem HCl 240 mg 240 mg PO QAM 07/29/21 07/29/21 Unknown History capsule,extended release 24 hr docusate sodium 100 mg capsule 100 mg PO DAILY PRN 07/29/21 07/29/21 Unknown History (Colace) glipizide 5 mg tablet 2.5 mg PO DAILY 07/29/21 07/29/21 Unknown History metformin 500 mg tablet 1,000 mg PO BID 07/29/21 07/29/21 Unknown History tizanidine 4 mg tablet 2 mg PO TID PRN 07/29/21 07/29/21 Unknown History Allergies Allergy/AdvReac Type Severity Reaction Status Date / Time pravastatin AdvReac Leg cramps Verified 07/29/21 12:04 Current Medications Generic Name Dose Route Start Last Admin Trade Name Freq PRN Reason Stop Dose Admin Acetaminophen 650 mg 07/29/21 04:54 08/01/21 17:41 Acetaminophen 325 Mg Tablet PO 650 mg Q6H PRN Administration Mild/Mod Pain Or Temp >/= 101 Amiodarone HCl 400 mg 07/30/21 09:00 08/05/21 08:21 Amiodarone 200 Mg Tablet PO 400 mg BID PIETER Administration Aspirin 81 mg 07/30/21 11:15 08/05/21 08:14 Aspirin 81 Mg Ec Tablet PO 81 mg DAILY PIETER Administration Diltiazem HCl 180 mg 07/29/21 09:00 08/05/21 08:14 Diltiazem Er (24hr) 180 Mg Capsule PO 180 mg DAILY PIETER Administration Docusate Sodium 100 mg 08/02/21 14:10 08/05/21 08:14 Docusate Sodium 100 Mg Capsule PO 100 mg BID PIETER Administration Duloxetine HCl 30 mg 07/29/21 09:00 08/05/21 08:14 Duloxetine 30 Mg Capsule PO 30 mg BID PIETER Administration Heparin Sodium (Porcine) 5,000 unit 07/29/21 05:45 08/03/21 18:40 Heparin 5,000 Unit/Ml Inj 1 Ml SUBCUT 5,000 unit Q12H PIETER Administration Vancomycin HCl 1,500 mg/ 250 mls @ 166.667 mls/hr 08/04/21 06:00 08/05/21 08:12 Sodium Chloride IV 166.67 mls/hr Q24H PIETER Administration Fluconazole 200 mg in 100 mls @ 100 mls/hr 08/04/21 09:00 08/05/21 08:57 Diflucan Premix IV 100 mls/hr Q24H PIETER Administration Sodium Chloride 1,000 mls @ 125 mls/hr 08/04/21 08:45 08/04/21 09:40 Sodium Chloride 0.9% IV 50 mls/hr .Q8H PIETER Administration Imipenem/Cilastatin Sodium 250 100 mls @ 200 mls/hr 08/05/21 04:30 08/05/21 11:44 mg/ Sodium Chloride IV 200 mls/hr Q6H PIETER Administration Insulin Glargine 15 unit 08/01/21 18:00 08/05/21 08:34 Insulin Glargine 100 Units/1 Ml SUBCUT Not Given Q12H [facility] Insulin Human Lispro 0 unit 07/31/21 22:15 08/04/21 21:53 Insulin Lispro 100 Unit/1 Ml SUBCUT 4 unit BEDTIME [facility] Administration Protocol Insulin Human Lispro 0 unit 08/01/21 08:00 08/05/21 11:45 Insulin Lispro 100 Unit/1 Ml SUBCUT 8 unit TIDWM [facility] Administration Protocol Metoprolol Tartrate 12.5 mg 08/03/21 08:30 08/05/21 08:21 Metoprolol Tartrate 25 Mg Tablet PO 12.5 mg Q12H PIETER Administration Nystatin 1 applic 08/03/21 09:03 08/05/21 08:22 Nystatin Powder 15 Gm Btl TOPICAL 1 applic BID PIETER Administration Pantoprazole Sodium 40 mg 08/03/21 14:15 08/05/21 04:[address] 40 Mg Tablet PO 40 mg Q12H PIETER Administration Polyethylene Glycol 17 gm 08/02/21 14:10 08/05/21 08:14 Polyethylene Glycol 3350 Pkt 17 Gm PO 17 gm DAILY PIETER Administration Sucralfate 1 gm 08/03/21 17:00 08/05/21 11:50 Sucralfate 1 Gm Tablet PO 1 gm AC&BEDTIME PIETER Administration Topiramate 50 mg 07/29/21 18:00 08/05/21 08:22 Topiramate 100 Mg Tablet PO 50 mg BID PIETER Administration PFSH Acute PFSH: Medical History Hypertension ALEX on CPAP Seasonal allergic rhinitis Type 2 diabetes mellitus with diabetic polyneuropathy Vitamin D insufficiency Surgical History History of basal cell carcinoma (BCC) excision (~06/2016) History of cataract removal with insertion of prosthetic lens (~2016) RIGHT: 05/13/16 LEFT: 06/03/16 History of lumbosacral spine surgery L4-L5 Family History Mother , AT AGE 93 Diabetes Stroke Cancer melanoma Father , AT AGE 86 Diabetes Social History Smoking and tobacco status: former smoker Alcohol intake: never Marital status: Current occupational status: retired History of recent travel: No Vitals/I&O/Wt Last Vital Signs Temp 98.4 F 08/05/21 11:46 Pulse 92 08/05/21 11:46 Resp 18 08/05/21 11:46 BP 116/72 08/05/21 11:46 Pulse Ox 99 08/05/21 11:46 08/04/21 08/05/21 08/05/21 22:59 06:59 14:59 Intake Total 320 / 2310 100 / 2410 390 / 390 Output Total 1400 / 2250 100 / 2350 1450 / 1450 Balance -1080 / 60 0 / 60 -1060 / -1060 Weight last 48 hrs Weight 180.122 kg Weight 180.258 kg Physical Exam Narrative: Constitutional: Awake, comfortable HEENT: Wet mucosa, no jvp, non icteric Lungs: Bilaterally clear without discernible wheeze, rales in all lung zones CVS: S1 S2, no murmurs Abdo: Soft, BS ok Ext 4: 2-3+ edema, peripheral perfusion with no cyanosis Neurological: Grossly non-focal Urinary Catheter Management: 3-way Urethral CBI: Cath Placed During This Visit: yes Urinary Catheter Date of Insertion: 08/05/21 Urinary Catheter Time of Insertion: 10:45 Data : 08/05/21 04:10 08/05/21 04:10 Micro: Microbiology 08/04/21 00:05 Urine Culture - Preliminary Urine,Clean Catch 07/30/21 17:36 Blood Culture - Final Blood NO GROWTH AFTER 5 DAYS A&P Assessment and plan (1) Acute kidney injury superimposed on CKD: Status: Acute Plan 1. Acute kidney injury Given the elevation in urea as compared to creatinine one must think about prerenal azotemia and intravascular volume depletion. May be some damage from contrast nephropathy, possible acute interstitial nephritis/ATN from antibiotic exposure as well. Good urine output and creatinine at least stable since yesterday. Will increase intravenous fluids 125 cc/h. Of note CBI currently on board hence urine studies would not be of value. A.m. labs from no other diagnostic testing for the time being No additional renal imaging is required either. Ins and outs Avoid usual nephrotoxic agents Dose medication for GFR less than 30 2. Chemistry Relatively minor anion gap metabolic acidosis and hyperphosphatemia. Of note Topamax will cause a nongap metabolic acidosis. This is are not noncritical and simply need to be followed for the time being. 3. Infectious disease issues Being treated empirically for lower extremity cellulitis Culture data is appreciated with group B streptococcus in early blood cultures but no growth since. 4. Confusion Likely toxic encephalopathy, uremia is a real possibility. The only good way of knowing if this is the case is by providing dialysis and seeing if there is clinical improvement. He is not a candidate for this therapy though. 5. Questionable renal mass; this was not seen on the follow-up CT scan that was performed. Will need periodic follow-up down the road. 6. Hematuria ? garcia trauma CBI ongoing, I believe urology is to consult, will follow recommendations. 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
--- NOTE | 2021-08-05 13:25 | PC.SOCIAL ---
IMM update IMM updated with patient's family at bedside. Copy Pg 2 provided. Initialled, dated, timed, and placed in chart.
[2021-08-05] MEDS: sodium chloride 0.9% 1,000 ML 50 ML IV ×2 (13:43→22:12)
--- NOTE | 2021-08-05 13:44 | PC.NURSE ---
Patient CBI output 1600
--- NOTE | 2021-08-05 14:08 | PC.NURSE ---
CBI output 1000
--- NOTE | 2021-08-05 14:41 | CTR_ITS ---
PROCEDURE INFORMATION: Exam: CT Head Without Contrast Exam date and time: 08/06/2021 1:24 AM Age: 76 years old Clinical indication: Altered mental status/memory loss; Additional info: AMS TECHNIQUE: Imaging protocol: Computed tomography of the head without contrast. Radiation optimization: All CT scans at this facility use at least one of these dose optimization techniques: automated exposure control; mA and/or kV adjustment per patient size (includes targeted exams where dose is matched to clinical indication); or iterative reconstruction. COMPARISON: CT head wo con* [id number] 07/29/2021 3:18 AM RADIATION DOSE METRICS: Total DLP (mGy-cm): 1763.62 FINDINGS: Brain: Moderate white matter disease and volume loss are identified. There is no acute infarct or edema. No hemorrhage. Cerebral ventricles: No ventriculomegaly. Paranasal sinuses: Visualized sinuses are unremarkable. No fluid levels. Mastoid air cells: Visualized mastoid air cells are well aerated. Bones/joints: Unremarkable. No acute fracture. Soft tissues: Unremarkable. CT/CT head wo con* [id number] IMPRESSION: There are no acute concerning abnormalities.
--- NOTE | 2021-08-05 14:42 | P.PN_ITS ---
Subjective Subjective: The following discussion patient, with both sisters at bedside with nursing staff at bedside -Currently patient was seen this morning, he had used BiPAP throughout the night, is normotensive, in atrial fibrillation, afebrile overnight he is quite drowsy this morning, alert to person, not to place, not to time, can follow commands, but frequently falls asleep, and becomes drowsy his mentation waxes and wanes -According to sister at bedside, his best mentation was likely Thursday but is declined since then -According to sister is at bedside, since patient's fall roughly a year ago he has had a gradual decline, now he is not able to ambulate, -He has told his sisters and multiple locations, he does not want to be brought back, he does not want to have aggressive interventions, after discussing patient's CODE STATUS, as patient is not able to provide any informed consent, I discussed patient's CODE STATUS in detail with patient's sisters, patient has voiced to sisters that he would not want to be brought back, he does not want CPR or intubation, patient's CODE STATUS was changed to DNR/DNI, nor was his wishes to have dialysis, he is told sisters that it is his time to go he wants to go -I discussed patient's deconditioning, he has lack of well, his willpower has declined, he remains nonambulatory, and his sisters tell me that this is a new state for the last year and he is slowly declining -I discussed patient's mentation, his mentation continues to wax and wane, certainly multifactorial, he he has uremia presently, from acute renal failure which could be an etiology, but will have nephrology come by and see him he is on fluids, will do a CT scan of his head, has a history of atrial fibrillation, and we have held off on anticoagulation given his Hemoccult positive stool and his hematuria -I advised patient and sisters that currently we will have to keep a close eye on his mentation, his prognosis is guarded -In terms of close family members, he recently his , he had a son -He does have 2 sons in [place] however according to his sisters they are not actively involved in his care, for the last year they have not been actively involved, they have not Seen Him in the Last Year Vitals/I&O/Wt Last Vital Signs Temp 98.4 F 08/05/21 11:46 Pulse 92 08/05/21 11:46 Resp 18 08/05/21 11:46 BP 116/72 08/05/21 11:46 Pulse Ox 99 08/05/21 11:46 08/04/21 08/05/21 08/05/21 22:59 06:59 14:59 Intake Total 320 / 2310 1100 / 3410 1200 / 1200 Output Total 1400 / 2250 100 / 2350 4050 / 4050 Balance -1080 / 60 1000 / 1060 -2850 / -2850 Weight last 48 hrs Weight 180.122 kg Weight 180.258 kg Physical Exam Const: COMMON NORMALS: no acute distress EXAM LIMITATIONS: altered mental status OTHER: Alert to person, not to place, not to time, does follow some commands, however is quite drowsy, encephalopathic Resp: COMMON NORMALS: normal respiratory effort, No retractions, No use of accessory muscles and clear to auscultation bilaterally AUSCULTATION: clear to auscultation bilaterally Cardio: COMMON NORMALS: regular rate, regular rhythm, S1 normal heart sound present and S2 normal heart sound present RATE: regular rate RHYTHM: regular rhythm HEART SOUNDS: S1 normal heart sound present and S2 normal heart sound present GI: COMMON NORMALS: Normal to inspection, nondistended, normoactive bowel sounds present, Soft to palpation and non-tender PALPATION: Yes Soft to palpation Extremity: NARRATIVE EXTREMITY EXAM: Right lower extremity, erythema, mid jimenez, improving Martins catheter in place, with hematuria Urinary Catheter Management: 3-way Urethral CBI: Cath Placed During This Visit: yes Urinary Catheter Date of Insertion: 08/05/21 Urinary Catheter Time of Insertion: 10:45 Data : 08/05/21 04:10 08/05/21 04:10 Micro: Microbiology 08/04/21 00:05 Urine Culture - Preliminary Urine,Clean Catch 07/30/21 17:36 Blood Culture - Final Blood NO GROWTH AFTER 5 DAYS A&P Assessment and plan (1) SIRS (systemic inflammatory response syndrome): Possible severe sepsis with lactic acidosis, SHREE, acute encephalopathy, with leukocytosis 24.9, tachycardia 115. Afebrile. He is coughing, although no obvious pneumonia on chest x-ray. Possible pulmonary source, possible atypical infection. We will also check COVID-19 PCR. Possible urinary infection, 5-10 RBC, 5-10 WBC. 0-4 squamous pleural cells. Negative nitrates. Assessed with CT abdomen pelvis renal stone protocol. No hydronephrosis noted. Questionable exophytic poorly visualized renal masses in the left kidney. Will need further follow-up later. Definitely has cellulitis of right lower extremity. Additionally obtain duplex of same extremity. Follow-up blood cultures. Empirically continue Zosyn, vancomycin at this time. Lactic acid recheck, slightly better, but not significantly improved, at 6. Unknown prior history of liver disease. Does have alkaline phosphatase elevation as well, which has been rising. Noted upper quadrant pain. Other liver parameters normal. Will obtain limited hepatobiliary ultrasound as well to assess possibility (although lower likelihood) of hepatobiliary infection. Assess echogenicity of the liver. Unknown if any history of liver fibrosis or cirrhosis. This could contribute to lactic acidosis, ketoacidosis. Check topiramate level. Add PPI prophylaxis. Status: Acute (2) Acidosis, lactic: Possible severe sepsis as above. Unknown if prior liver disease. Assess limited hepatobiliary ultrasound with management as above. Does have INR abnormality, 1.34, not on anticoagulation. Status: Acute (3) Acute kidney injury superimposed on CKD: Possible severe sepsis as above. Possible SHREE secondary sepsis. Possible secondary to NSAID, valsartan. Hold these medications. No hydronephrosis noted on CT renal stone. Received fluid challenge, hold further IVF. Adjusted topiramate dose. Track I&O and weights. Status: Acute (4) Cellulitis: Right lower extremity between knee and ankle dull redness, warmth. RLE> LLE. Assess venous duplex for possibility of DVT. Able to move right foot without problems. No pain. Findings not suggestive of compartment syndrome at the moment. Status: Acute (5) Hyperglycemia: Severe hyperglycemia in the 500s. Also ketones positive in urine. Possible early ketoacidosis cannot be excluded, the pH normal, but makes disorder as does have anion gap acidosis. Possible DKA cannot be excluded. Insulin drip. IV hydration. Follow-up electrolytes, maintaining potassium. Status: Acute (6) Acute encephalopathy: Acute metabolic encephalopathy with possible severe sepsis, with also other abnormalities including SHREE, possible toxic encephalopathy with SHREE and tizanidine or other medications. Hold this medication for now. Management Conditions as above. Status: Acute (7) Rhabdomyolysis: Mild rhabdomyolysis, CK 589. Reassess CK. Status: Acute (8) Renal mass, right: ?Exophytic subcentimeter masses from the RIGHT kidney cannot be further characterized on this unenhanced study due to their small size and no contrast. Will need follow-up after acute illness Status: Acute (9) Hypertension: Blood pressures fluctuating somewhat difficult to measure due to body habitus. Monitor blood pressures for now. Valsartan on hold due to SHREE. Status: Chronic Qualifiers: Hypertension type: essential hypertension Qualified Code(s): I10 - Essential (primary) hypertension (10) Metabolic acidosis: Anion gap anabolic acidosis, lactic acidosis, possible ketoacidosis. Status: Acute (11) Sinus tachycardia: In setting of possible severe sepsis, multiple metabolic abnormalities. Additional assessment as above. Status: Acute (12) ALEX on CPAP: Status: Chronic (13) Type 2 diabetes mellitus with diabetic polyneuropathy: Does not appear to be on metformin. Oral hypoglycemics on hold. Status: Chronic Qualifiers: Diabetes mellitus termite control technician insulin use: with termite control technician use Qualified Code(s): E11.42 - Type 2 diabetes mellitus with diabetic polyneuropathy; Z79.4 - shelter (current) use of insulin (14) Bacteremia due to group B Streptococcus: Status: Acute (15) Peripheral vascular disease: Status: Acute (16) Atrial fibrillation with RVR: Status: Acute Plan 76 year old male with past medical history of hypertension diabetes obstructive sleep apnea resident of [place] Came in with chief complaint of generalized weakness, as well as back pain. Now with acute encephalopathy -Etiology likely multifactorial from uremia -BUN over 99, from acute renal failure, receiving IV fluids -Neurochecks, aspiration precautions, night stroke scale -Given history of atrial fibrillation, not on anticoagulation due to Hemoccult positive stools, hematuria, will do CT of the head -Repeat blood cultures unremarkable, urine cultures unremarkable, afebrile -Compliant with BiPAP, will obtain ABG Group B strep bacteremia -With acute encephalopathy, resolved -With SIRS, sepsis, resolved -With acute renal failure, resolved -With lactic acidosis, resolved -With NSTEMI Plan -Underlying likely right lower extremity cellulitis which is improving -Repeat blood cultures so far negative -Transesophageal echocardiogram within normal limits -For now continue vancomycin -Follow repeat blood cultures -Monitor mentation -Monitor urine output -DNR, DNI -SCDs DVT prophylaxis UA with evidence of UTI, has ESBL risk factors, on Zosyn, switched to Primaxin, add fluconazole Hematuria, continue to monitor, change Martins catheter to 22 Tamaz[place], start continuous bladder irrigation Acute thrombocytopenia -Unlikely to be heparin-induced thrombocytopenia -Likely pseudothrombocytopenia from platelet clumping, also related to sepsis -Monitor A. fib with RVR -Likely secondary to underlying sepsis and SIRS -Heart rates under better control stop amiodarone drip, continue p.o. amiodarone -Hold off on full dose anticoagulation, given thrombocytopenia, Hemoccult positive stools, anemia, hematuria Acute renal failure, SHREE, rhabdomyolysis -Elevated BUN today, creatinine 2.7 -Possibly contrast-induced, possibly hypovolemia -Consult nephrology -Monitor kidney function -It was patient's wishes to not have aggressive interventions, would not want to have dialysis Lactic acidosis as above NSTEMI as above Deconditioning, bedbound, repositioning Peripheral vascular disease 1. Moderate disease in the right anterior tibial and posterior tibial arteries with visible runoff to the foot. 2. Calcified plaque with moderate focal stenosis in the left popliteal artery. 3. Severe multifocal disease in the left anterior tibial artery with no visible runoff to the foot. 4. Subcutaneous soft tissue edema or cellulitis in the right lower leg, ankle, and dorsal foot.? -Monitor DP PT pulses -Will will likely require intervention at some point Type 2 diabetes mellitus, with hyperglycemia -Elevated blood sugars increase Lantus to 10 needs daily, high-dose sliding scale Cellulitis, as above Acute on chronic anemia, Hemoccult stools positive, hold off on anticoagulation Protonix, Carafate, monitor hemoglobin ALEX, CPAP Attestations Medical Necessity Statement*: Patient requires hospitalization for encephalopathy, uremia, acute renal failure, deconditioning, cellulitis, Coding Level of Care Code Acute Income Tax Advisor for [facility] Fwd Diagnoses SIRS (systemic inflammatory response syndrome) R65.10 Acidosis, lactic E87.2 Acute kidney injury superimposed on CKD N17.9; N18.9 Cellulitis L03.90 Hyperglycemia R73.9 Acute encephalopathy G93.40 Rhabdomyolysis M62.82 Renal mass, right N28.89 Hypertension I10 Hypertension type: essential hypertension Metabolic acidosis E87.2 Sinus tachycardia R00.0 ALEX on CPAP G47.33; Z99.89 Type 2 diabetes mellitus with diabetic polyneuropathy E11.42; Z79.4 Diabetes mellitus usp insulin use: with termite control technician use Bacteremia due to group B Streptococcus R78.81; B95.1 Peripheral vascular disease I73.9 Atrial fibrillation with RVR I48.91
[2021-08-05 17:06] LABS: ABG PCO2 34.1 mmHg (35-45); ABG PH Result 7.38 (7.35-7.45); Arterial Blood Gas Hematocrit 38.1 % (42-52); Blood Gas Allen Test Pos; Blood Gas Operator Identificat CAK; Blood Gas Sample Site Brachial, left; Blood Gas Sample Type Arterial; HCO3 ABG 20.3 mmol/L (22-26); Oxygen Device NC
[2021-08-05] MEDS: insulin glargine 100 units/1 mL 15 UNIT SUBCUT (17:08)
--- NOTE | 2021-08-05 17:15 | PC.NURSE ---
Patient had out 1000 of CBI
[2021-08-05 17:18] LABS: Glucose Point of Care 143 mg/dL (70-110)
--- NOTE | 2021-08-05 18:48 | PC.NURSE ---
Patient had 500 out of CBI
--- NOTE | 2021-08-05 19:00 | P.CONIM_ITS ---
Providers/Reason For Consult Consulting Physician/Specialty*: Tripathi/urology Reason for Consult*: Gross hematuria Requesting Physician: Dr. Carreon Attending Physician: Aba Carreon MD Primary Care Provider: Domingo Lazcano DO History of Present Illness History of Present Illness Jorge Tomlin is a 76 year old male who I have seen once before in clinic on 09/04/2020, for elevated PSA. PSA was found to be ranging from 8.5-11.1. ASHLEIGH showed 3+ size with no nodularity or suspicious findings. Patient had multiple severe comorbidities and advanced age and after detailed discussion of options he elected at my recommendation a more conservative approach with serial PSAs and ASHLEIGH's over time. It was recommended that he follow-up in about 6 months. Did not keep that appointment. This consult was generated after the patient developed gross hematuria during this hospital stay. Looks like he was admitted on the with confusion, deterioration overall, blood sugar 520. Has multiple other comorbidities including morbid obesity, history of rhabdomyolysis, peripheral vascular disease, obstructive sleep apnea, hypertension, diabetes, chronic kidney disease, atrial fibrillation with rapid ventricular response, venous stasis changes bilateral lower extremities. Has been treated for UTI. Developed gross hematuria acutely on 08/03/2021. Etiology unclear. Had been on some blood thinner. That has been stopped. Some concern about possible tugging on the catheter with movement. Was placed on manual irrigation of the catheter with some improvement but clots and gross hematuria continued. Has been switched over to a 22 Kiswahili three-way Martins catheter with CBI running after manual irrigation clearance of clots. Has had a CT scan done this hospital stay which showed what appeared to be small cysts in both kidneys of no great concern. Noticed on a previous CT scan earlier this year. Possibly some slight increase in size. Overall considered low risk. The bladder was decompressed with a Martins catheter. Did not appear to be a large amount of clot in the bladder. Examination of the urine today showed light pink urine that was with low flow CBI. Catheter in good position. Appropriately managed. I reviewed with the family these findings and the big picture items. Obviously has a lot of other things going on right now at present a greater risk to him. I recommended continuing the CBI with manual irrigation as needed with expectation that he will probably be able to wean off that as his infection improves. Family seemed content with my explanations. Did recommend that if his bleeding worsens that we could perform bedside cystoscopy Review of Systems Const: Reports: fatigue and malaise Card: Reports: edema and swelling of feet/ankles; Denies: chest pain Resp: Reports: dyspnea; Denies: hemoptysis GI: Denies: nausea or vomiting : Reports: hematuria Musc: Reports: extremity swelling Neuro: Reports: weakness in extremities and confusion Psych: Reports: loss of interest Yury/Lymph: Reports: easy bleeding; Denies: tender lymph nodes All/Imm: Denies: urticaria or acute wheezing Medications/Allergies Home Medications Medication Instructions Recorded Confirmed Last Taken Type duloxetine 30 mg capsule,delayed 30 mg PO BID #60 cap 04/07/19 07/29/21 Unknown Rx release (Cymbalta) furosemide 40 mg tablet (Lasix) 40 mg PO DAILY PRN #30 tab 04/07/19 07/29/21 Unknown Rx valsartan 160 mg tablet 160 mg PO DAILY #30 tab 04/07/19 07/29/21 Unknown Rx topiramate 100 mg tablet (Topamax) 100 mg PO BID #60 tab 04/22/19 07/29/21 Unknown Rx alogliptin 12.5 mg tablet 12.5 mg PO DAILY 07/29/21 07/29/21 Unknown History aspirin 81 mg tablet,delayed 81 mg PO DAILY 07/29/21 07/29/21 Unknown History release cetirizine 5 mg tablet 5 mg PO DAILY PRN 07/29/21 07/29/21 Unknown History cholecalciferol (vitamin D3) 25 25 mcg PO DAILY 07/29/21 07/29/21 Unknown History mcg (1,000 unit) tablet (Vitamin D3) diltiazem HCl 240 mg 240 mg PO QAM 07/29/21 07/29/21 Unknown History capsule,extended release 24 hr docusate sodium 100 mg capsule 100 mg PO DAILY PRN 07/29/21 07/29/21 Unknown History (Colace) glipizide 5 mg tablet 2.5 mg PO DAILY 07/29/21 07/29/21 Unknown History metformin 500 mg tablet 1,000 mg PO BID 07/29/21 07/29/21 Unknown History tizanidine 4 mg tablet 2 mg PO TID PRN 07/29/21 07/29/21 Unknown History Allergies Allergy/AdvReac Type Severity Reaction Status Date / Time pravastatin AdvReac Leg cramps Verified 07/29/21 12:04 Current Medications Generic Name Dose Route Start Last Admin Trade Name Venancio PRN Reason Stop Dose Admin Acetaminophen 650 mg 07/29/21 04:54 08/01/21 17:41 Acetaminophen 325 Mg Tablet PO 650 mg Q6H PRN Administration Mild/Mod Pain Or Temp >/= 101 Aspirin 81 mg 07/30/21 11:15 08/05/21 08:14 Aspirin 81 Mg Ec Tablet PO 81 mg DAILY PIETER Administration Diltiazem HCl 180 mg 07/29/21 09:00 08/05/21 08:14 Diltiazem Er (24hr) 180 Mg Capsule PO 180 mg DAILY PIETER Administration Docusate Sodium 100 mg 08/02/21 14:10 08/05/21 17:10 Docusate Sodium 100 Mg Capsule PO 100 mg BID PIETER Administration Duloxetine HCl 30 mg 07/29/21 09:00 08/05/21 17:10 Duloxetine 30 Mg Capsule PO 30 mg BID PIETER Administration Heparin Sodium (Porcine) 5,000 unit 07/29/21 05:45 08/03/21 18:40 Heparin 5,000 Unit/Ml Inj 1 Ml SUBCUT 5,000 unit Q12H PIETER Administration Vancomycin HCl 1,500 mg/ 250 mls @ 166.667 mls/hr 08/04/21 06:00 08/05/21 09:50 Sodium Chloride IV Infused Q24H PIETER Infusion Fluconazole 200 mg in 100 mls @ 100 mls/hr 08/04/21 09:00 08/05/21 10:00 Diflucan Premix IV Infused Q24H PIETER Infusion Sodium Chloride 1,000 mls @ 125 mls/hr 08/04/21 08:45 08/05/21 13:43 Sodium Chloride 0.9% IV 50 mls/hr .Q8H PIETER Administration Imipenem/Cilastatin Sodium 250 100 mls @ 200 mls/hr 08/05/21 04:30 08/05/21 18:06 mg/ Sodium Chloride IV Infused Q6H PIETER Infusion Insulin Glargine 15 unit 08/01/21 18:00 08/05/21 17:08 Insulin Glargine 100 Units/1 Ml SUBCUT 15 unit Q12H PIETER Administration Insulin Human Lispro 0 unit 07/31/21 22:15 08/04/21 21:53 Insulin Lispro 100 Unit/1 Ml SUBCUT 4 unit BEDTIME PIETER Administration Protocol Insulin Human Lispro 0 unit 08/01/21 08:00 08/05/21 17:48 Insulin Lispro 100 Unit/1 Ml SUBCUT 6 unit TIDWM PIETER Administration Protocol Metoprolol Tartrate 12.5 mg 08/03/21 08:30 08/05/21 08:21 Metoprolol Tartrate 25 Mg Tablet PO 12.5 mg Q12H PIETER Administration Nystatin 1 applic 08/03/21 09:03 08/05/21 17:10 Nystatin Powder 15 Gm Btl TOPICAL 1 applic BID PIETER Administration Pantoprazole Sodium 40 mg 08/03/21 14:15 08/05/21 13:[address] 40 Mg Tablet PO 40 mg Q12H PIETER Administration Polyethylene Glycol 17 gm 08/02/21 14:10 08/05/21 08:14 Polyethylene Glycol 3350 Pkt 17 Gm PO 17 gm DAILY PIETER Administration Sucralfate 1 gm 08/03/21 17:00 08/05/21 17:08 Sucralfate 1 Gm Tablet PO 1 gm AC&BEDTIME PIETER Administration Topiramate 50 mg 07/29/21 18:00 08/05/21 17:09 Topiramate 100 Mg Tablet PO 50 mg BID PIETER Administration PFSH Acute PFSH: Medical History Elevated PSA Hypertension ALEX on CPAP Seasonal allergic rhinitis Type 2 diabetes mellitus with diabetic polyneuropathy Vitamin D insufficiency Surgical History History of basal cell carcinoma (BCC) excision (~06/2016) History of cataract removal with insertion of prosthetic lens (~2016) RIGHT: 05/13/16 LEFT: 06/03/16 History of lumbosacral spine surgery L4-L5 Family History Mother , AT AGE 93 Diabetes Stroke Cancer melanoma Father , AT AGE 86 Diabetes Social History Smoking and tobacco status: former smoker Alcohol intake: never Marital status: Current occupational status: retired History of recent travel: No Vitals/I&O/Wt Last Vital Signs Temp 97.8 F 08/05/21 15:13 Pulse 95 08/05/21 15:13 Resp 18 08/05/21 15:13 BP 137/75 08/05/21 15:13 Pulse Ox 97 08/05/21 15:13 08/05/21 08/05/21 08/05/21 06:59 14:59 22:59 Intake Total 1100 / 3410 1200 / 1200 6100 / 7300 Output Total 100 / 2350 4050 / 4050 5800 / 9850 Balance 1000 / 1060 -2850 / -2850 300 / -2550 Weight last 48 hrs Weight 397 lb 1.6 oz Weight 397 lb 6.4 oz Physical Exam Narrative: Appears to be very uncomfortable. Not very responsive to questions. Was receiving physical therapy at the time. Obese. Poor mobility. Abdomen is protuberant. No rebound or other signs of surgical abdomen. Catheter in place draining relatively clear pink-tinged urine with low CBI flow rate. Bilateral lower extremity edema with chronic venous stasis changes. No audible wheezes. Does not appear to be labored in respiration. No active bleeding. Urinary Catheter Management: 3-way Urethral CBI: Cath Placed During This Visit: yes Urinary Catheter Date of Insertion: 08/05/21 Urinary Catheter Time of Insertion: 10:45 Data : 08/08/21 06:03 08/08/21 06:03 Micro: Microbiology 08/04/21 00:05 Urine Culture - Preliminary Urine,Clean Catch 07/30/21 17:36 Blood Culture - Final Blood NO GROWTH AFTER 5 DAYS A&P Assessment and plan (1) Gross hematuria: Etiology unclear. Most likely related to UTI and anticoagulation. Status: Acute (2) Bilateral renal cysts: Benign appearance. Low risk. No further work-up recommended now Status: Acute (3) Renal mass, right: No further work-up Status: Ruled-out Plan 1. Manually irrigate as needed 2. Continue CBI 3. Consider bedside cystoscopy if bleeding continues 4. No further work-up on renal lesions. I think these are likely to be benign simple cysts and given their appearance in the face of other severe multiple comorbidities further work-up is not clearly indicated. Coding Level of Care Code Acute Airplane Inspector for [facility] Evelio Diagnoses Gross hematuria R31.0 Bilateral renal cysts N28.1 Renal mass, right N28.89
[2021-08-05 21:22] LABS: UFH High Dose, 100 IU/ML 0 % release; UFH Low Dose, 0.1 IU/ML 3 % release; UFH Low Dose, 0.5 IU/ML 4 % release; UFH SRA Result NEGATIVE (NEGATIVE)
[2021-08-06] VITALS (14 sets, daily range): BP systolic 130–160; BP diastolic 79–102; PULSE 86–103; RESP 16–20; TEMP 36.3–36.7; O2SAT 94–100
[2021-08-06] MEDS: pantoprazole DR 40 mg Tablet PO ×2 (01:50→14:24)
[2021-08-06] MEDS: sodium chloride 0.9% 1,000 ML 50 ML IV (03:38)
[2021-08-06] MEDS: insulin glargine 100 units/1 mL 15 UNIT SUBCUT ×2 (06:31→17:31)
[2021-08-06 07:28] LABS: Basophils % 0.1 %; Eosinophils # 0.2 10^3/uL (0.0-0.8); Eosinophils % 1.1 %; Hematocrit 38.4 % (42.0-52.0); Hemoglobin 12.6 g/dL (11.7-16.6); Lymphocytes # 0.9 10^3/uL (0.8-4.8); Lymphocytes % 4.1 %; Mean Corpuscular HGB Conc 32.8 g/dL (30.0-36.0); Mean Corpuscular Hemoglobin 28.9 pg (28.0-34.0); Mean Corpuscular Volume 88.1 fl (80-94); Mean Platelet Volume 12.3 fL (7.4-10.4); Monocytes # 1.2 10^3/uL (0.2-0.9); Monocytes % 5.5 %; Neutrophils # 18.79 10^3/uL (1.8-7.7); Nucleated Red Blood Cells % 0 %; Platelet Count 296 10^3/cmm (130-400); Red Blood Count 4.36 10^6/uL (4.1-5.3); Red Cell Distribution Width 13.7 % (12.1-15.1); White Blood Count 21.4 10^3/uL (4.0-10.0)
[2021-08-06 07:50] LABS: Alanine Aminotransferase 16 U/L (0-41); Albumin Level 1.9 g/dL (3.5-5.2); Alkaline Phosphatase 140 IU/L (40-130); Anion Gap 13.7 (5-19); Aspartate Amino Transferase 19 U/L (0-40); Blood Urea Nitrogen 73 mg/dL (8-23); C Reactive Protein 151.5 mg/L (0.0-4.9); Calcium 8.8 mg/dL (8.5-10.5); Carbon Dioxide 23 mmol/L (22-29); Chloride 108 mmol/L (98-107); Glucose 187 mg/dL (65-115); Magnesium 2.4 mg/dL (1.7-2.3); Osmolality Calculated 318 mOsm/kg (285-295); Phosphorus 5.2 mg/dL (2.5-4.5); Potassium 3.7 mmol/L (3.5-5.1); Sodium 141 mmol/L (136-145); Total Bilirubin 0.8 mg/dL (0.15-1.2); Total Protein 5.9 g/dL (6.6-8.7)
[2021-08-06 08:18] LABS: Glucose Point of Care 161 mg/dL (70-110)
[2021-08-06 08:18] LABS: Glucose Point of Care 169 mg/dL (70-110)
[2021-08-06 08:31] LABS: Creatine Phosphokinase 52 U/L (39-308)
--- NOTE | 2021-08-06 08:31 | P.PN_ITS ---
Subjective Subjective: is doing a little better today. More awake, conversant. Urine is now clearing up, no longer bloody/pink-tinged. He does have some extremity and scrotal edema but it is unchanged since yesterday despite being on intravenous fluid. Blood work looks better. Vitals/I&O/Wt Last Vital Signs Temp 97.5 F L 08/06/21 07:19 Pulse 93 08/06/21 08:00 Resp 20 H 08/06/21 07:19 BP 151/88 08/06/21 07:19 Pulse Ox 95 08/06/21 08:00 08/05/21 08/06/21 08/06/21 22:59 06:59 14:59 Intake Total 6744.167 / 7944.167 1371.667 / 9315.834 Output Total 5800 / 9850 400 / 400 Balance 944.167 / -3771.031 6578.667 / -534.166 -400 / -400 Weight last 48 hrs Weight 177.899 kg Weight 180.122 kg Physical Exam Narrative: Constitutional: Awake, comfortable HEENT: Wet mucosa, no jvp, non icteric Lungs: Bilaterally clear without discernible wheeze, rales in all lung zones CVS: S1 S2, no murmurs Abdo: Soft, BS ok Ext 4: 2-3+ edema, peripheral perfusion with no cyanosis Neurological: Grossly non-focal Urinary Catheter Management: 3-way Urethral CBI: Cath Placed During This Visit: yes Urinary Catheter Date of Insertion: 08/05/21 Urinary Catheter Time of Insertion: 10:45 Data : 08/06/21 06:55 08/06/21 06:55 Micro: Microbiology 08/01/21 04:29 Blood Culture - Final Blood NO GROWTH AFTER 5 DAYS 08/01/21 04:26 Blood Culture - Final Blood NO GROWTH AFTER 5 DAYS 08/04/21 00:05 Urine Culture - Preliminary Urine,Clean Catch A&P Assessment and plan (1) Acute kidney injury superimposed on CKD: Status: Acute Plan 1. Acute kidney injury Given the elevation in urea as compared to creatinine one must think about prerenal azotemia and intravascular volume depletion with some improvement in renal function after ivf increased Ins and outs Avoid usual nephrotoxic agents Dose medication for GFR less than 30 2. Chemistry Looks good 3. Infectious disease issues Being treated empirically for lower extremity cellulitis Culture data is appreciated with group B streptococcus in early blood cultures but no growth since. 4. Confusion A little better today with decrease in uremic burden 5. Questionable renal mass; this was not seen on the follow-up CT scan that was performed. Will need periodic follow-up down the road. 6. Hematuria ? garcia trauma Much improved now Thank you for consultation Attestations Medical Necessity Statement*: Eval for renal failure Coding Level of Care Code Acute Real Estate Leasing Manager for [facility] Diagnoses Acute kidney injury superimposed on CKD N17.9; N18.9
[2021-08-06] MEDS: dilTIAZem ER (24HR) 180 mg Capsule PO (10:10)
[2021-08-06] MEDS: polyethylene glycol 3350 Pkt 17 gm PO (10:10)
[2021-08-06] MEDS: amiodarone 200 mg Tablet 400 MG PO (10:11)
[2021-08-06] MEDS: sucralfate 1 gm Tablet PO ×3 (10:11→21:37)
[2021-08-06] MEDS: aspirin 81 mg EC Tablet PO (10:12)
[2021-08-06] MEDS: docusate sodium 100 mg Capsule PO ×2 (10:12→17:30)
[2021-08-06] MEDS: duloxetine 30 mg Capsule PO ×2 (10:13→17:30)
[2021-08-06] MEDS: topiramate 100 mg Tablet 50 MG PO ×2 (10:13→17:30)
[2021-08-06] MEDS: metoprolol tartrate 25 mg Tablet 12.5 MG PO ×2 (10:14→20:17)
[2021-08-06] MEDS: fluconazole premix 200 MG/100 ML PREMIX 100 MG IV (10:23)
[2021-08-06] MEDS: nystatin powder 15 gm Btl 1 APPLIC TOPICAL (10:45)
[2021-08-06 12:00] LABS: Glucose Point of Care 219 mg/dL (70-110)
[2021-08-06] MEDS: insulin lispro 100 unit/1 mL SUBCUT ×3 (12:17→21:37)
[2021-08-06 16:58] LABS: Glucose Point of Care 217 mg/dL (70-110)
[2021-08-06] MEDS: sodium chloride 0.9% 1,000 ML 125 ML IV (20:06)
--- NOTE | 2021-08-06 20:47 | PM.PN ---
Subjective Subjective: Reports he is doing all right. His lower extremities are doing okay . Denies pain or discomfort. Denies chest pain or pressure or trouble breathing. Tells me that he remembers seeing me earlier. Vitals/I&O/Wt Last Vital Signs Temp 97.8 F 08/06/21 15:43 Pulse 99 08/06/21 15:43 Resp 16 08/06/21 15:43 BP 157/79 08/06/21 15:43 Pulse Ox 96 08/06/21 15:43 08/06/21 08/06/21 08/06/21 06:59 14:59 22:59 Intake Total 1371.667 / 9315.834 840 / 840 1463.333 / 2303.333 Output Total 1050 / 1050 2225 / 3275 Balance 1371.667 / -534.166 -210 / -210 -761.667 / -971.667 Weight last 48 hrs Weight 177.899 kg Weight 180.122 kg Physical Exam Narrative: Up in chair. Const: COMMON NORMALS: alert GENERAL APPEARANCE: cooperative NUTRITIONAL APPEARANCE: obese ORIENTATION/CONSCIOUSNESS: Yes awake; not oriented to place and not oriented to time OTHER: Not a good historian. Otherwise cooperative, follows directions, provides ROS. HENMT: COMMON NORMALS: normocephalic, EAC's normal, Normal external nose present and moist oral mucous membranes HEAD & SCALP: normocephalic NOSE: Normal external nose present EXTERNAL AUDITORY CANAL: EAC's normal Neck/C-Spine: COMMON NORMALS: no meningeal signs Chest: CHEST: Yes Symmetrical chest wall rise Resp: COMMON NORMALS: clear to auscultation bilaterally AUSCULTATION: clear to auscultation bilaterally Cardio: COMMON NORMALS: regular rate, regular rhythm and No murmurs present (Cardio) RATE: regular rate RHYTHM: regular rhythm GI: COMMON NORMALS: Normal to inspection, nondistended, normoactive bowel sounds present, Soft to palpation and non-tender PALPATION: Yes Soft to palpation OTHER: Nontender to deep palpation, including RUQ Extremity: OTHER: R>L, mostly resolved erythema, chronic stasis changes BL Neuro: COMMON NORMALS: moves all extremities SENSORIUM/ORIENTATION: Yes alert, No oriented to place and No oriented to time MENINGEAL SIGNS: Yes no meningeal signs Psych: COMMON NORMALS: mental status grossly normal Skin: COMMON NORMALS: no wounds RASHES: no rashes noted (Resolved RLE below knee/above ankle dull erythema and warmth) WOUNDS: Yes wounds noted (cracked skin dist plantar R foot near hallux skin crack 1cm, no drain/eryth) Urinary Catheter Management: 3-way Urethral CBI: Cath Placed During This Visit: yes Urinary Catheter Date of Insertion: 08/05/21 Urinary Catheter Time of Insertion: 10:45 Data : 08/06/21 06:55 08/06/21 06:55 Micro: Microbiology 08/04/21 00:05 Urine Culture - Final Urine,Clean Catch 08/01/21 04:29 Blood Culture - Final Blood NO GROWTH AFTER 5 DAYS 08/01/21 04:26 Blood Culture - Final Blood NO GROWTH AFTER 5 DAYS A&P Assessment and plan (1) Acute encephalopathy: He is doing better. He is awake and alert. He ate breakfast. No acute abnormality seen on CT of the head. Acute metabolic encephalopathy with possible severe sepsis, with also other abnormalities including SHREE, possible toxic encephalopathy with SHREE and tizanidine or other medications. Hold this medication for now. Management Conditions as above. Status: Acute (2) SIRS (systemic inflammatory response syndrome): Persistence of leukocytosis, although overall improvement, does have significant improvement in erythema of right lower extremity. However he is still larger than LLE. Noted left pulmonary opacity. Possible pneumonia. Continues on empiric antibiotics. Would complete 2 weeks of antibiotics due to gram-positive bacteremia. No intracavitary/palpable masses or vegetations on BERNARDA. Status: Acute (3) Acidosis, lactic: Possible severe sepsis as above. Unknown if prior liver disease. Assess limited hepatobiliary ultrasound with management as above. Does have INR abnormality, 1.34, not on anticoagulation. Status: Acute (4) Acute kidney injury superimposed on CKD: Acidosis resolved. Receiving IV fluid challenge. Nephrology recommendations appreciated. Creatinine overall with mild improvement, down to 1.8. Status: Acute (5) Cellulitis: With significant improvement. Status: Acute (6) Hyperglycemia: Improved Status: Acute (7) Rhabdomyolysis: Resolved Status: Acute (8) Renal mass, right: ?Exophytic subcentimeter masses from the RIGHT kidney cannot be further characterized on this unenhanced study due to their small size and no contrast. Will need follow-up after acute illness Status: Ruled-out (9) Hypertension: Continue metoprolol Status: Chronic Qualifiers: Hypertension type: essential hypertension Qualified Code(s): I10 - Essential (primary) hypertension (10) Metabolic acidosis: Anion gap anabolic acidosis, lactic acidosis, possible ketoacidosis. Status: Acute (11) Sinus tachycardia: In setting of possible severe sepsis, multiple metabolic abnormalities. Additional assessment as above. Status: Acute (12) ALEX on CPAP: Status: Chronic (13) Type 2 diabetes mellitus with diabetic polyneuropathy: Does not appear to be on metformin. Oral hypoglycemics on hold. Status: Chronic Qualifiers: Diabetes mellitus intermediate designer insulin use: with intermediate designer use Qualified Code(s): E11.42 - Type 2 diabetes mellitus with diabetic polyneuropathy; Z79.4 - intermediate designer (current) use of insulin (14) Bacteremia due to group B Streptococcus: Status: Acute (15) Peripheral vascular disease: Status: Acute (16) Atrial fibrillation with RVR: Continue metoprolol, diltiazem Not on anticoagulation due to bleeding Status: Acute Plan Hematuria: Resolving. Wean off CBI. Thrombocytopenia: Resolved Acute on chronic anemia, Hemoccult stools positive, hold off on anticoagulation Protonix, Carafate, monitor hemoglobin ALEX, CPAP Physical deconditioning: Continue mobilization, PT, case management also working on arrangements for rehabilitation. Attestations Medical Necessity Statement*: Continue admission for assessment of management of gram-positive bacteremia, possible pneumonia, acute encephalopathy, disposition planning and arrangements. Coding Level of Care Code Acute Marketing Content Manager for [facility] Fwd Diagnoses SIRS (systemic inflammatory response syndrome) R65.10 Acidosis, lactic E87.2 Acute kidney injury superimposed on CKD N17.9; N18.9 Cellulitis L03.90 Hyperglycemia R73.9 Acute encephalopathy G93.40 Rhabdomyolysis M62.82 Renal mass, right N28.89 Hypertension I10 Hypertension type: essential hypertension Metabolic acidosis E87.2 Sinus tachycardia R00.0 ALEX on CPAP G47.33; Z99.89 Type 2 diabetes mellitus with diabetic polyneuropathy E11.42; Z79.4 Diabetes mellitus intermediate designer insulin use: with jail use Bacteremia due to group B Streptococcus R78.81; B95.1 Peripheral vascular disease I73.9 Atrial fibrillation with RVR I48.91
[2021-08-06 21:31] LABS: Glucose Point of Care 172 mg/dL (70-110)
[2021-08-06 21:31] LABS: Glucose Point of Care 123 mg/dL (70-110)
[2021-08-06] MEDS: lactated ringers 1,000 ML 100 ML IV (21:35)
[2021-08-07] VITALS (8 sets, daily range): BP systolic 121–158; BP diastolic 67–98; PULSE 83–102; RESP 17–22; TEMP 36.3–36.9; O2SAT 91–99
[2021-08-07] MEDS: insulin glargine 100 units/1 mL 15 UNIT SUBCUT ×2 (05:09→17:50)
[2021-08-07] MEDS: pantoprazole DR 40 mg Tablet PO ×2 (05:10→17:50)
[2021-08-07] MEDS: acetaminophen 325 mg Tablet 650 MG PO ×2 (05:14→17:52)
[2021-08-07 05:34] LABS: Alanine Aminotransferase 17 U/L (0-41); Albumin Level 1.8 g/dL (3.5-5.2); Alkaline Phosphatase 133 IU/L (40-130); Aspartate Amino Transferase 20 U/L (0-40); Blood Urea Nitrogen 52 mg/dL (8-23); C Reactive Protein 146.6 mg/L (0.0-4.9); Calcium 8.5 mg/dL (8.5-10.5); Carbon Dioxide 19 mmol/L (22-29); Chloride 110 mmol/L (98-107); Creatine Phosphokinase 58 U/L (39-308); Globulin 3.8 g/dL (1.3-4.6); Glucose 191 mg/dL (65-115); Osmolality Calculated 305 mOsm/kg (285-295); Phosphorus 3.6 mg/dL (2.5-4.5); Sodium 138 mmol/L (136-145); Total Bilirubin 0.8 mg/dL (0.15-1.2); Total Protein 5.6 g/dL (6.6-8.7)
[2021-08-07 05:35] LABS: Vancomycin Trough 17.1 ug/mL (10-15)
[2021-08-07 05:37] LABS: Anion Gap 12.9 (5-19); Potassium 3.9 mmol/L (3.5-5.1)
[2021-08-07] MEDS: sucralfate 1 gm Tablet PO ×4 (06:01→20:55)
[2021-08-07 06:53] LABS: Basophils # 0.1 10^3/uL (0.0-0.1); Basophils % 0.2 %; Eosinophils # 0.2 10^3/uL (0.0-0.8); Eosinophils % 0.9 %; Hematocrit 35.1 % (42.0-52.0); Hemoglobin 11.9 g/dL (11.7-16.6); Lymphocytes % 4.7 %; Mean Corpuscular HGB Conc 33.9 g/dL (30.0-36.0); Mean Corpuscular Hemoglobin 29.2 pg (28.0-34.0); Mean Platelet Volume 11.6 fL (7.4-10.4); Monocytes # 1.5 10^3/uL (0.2-0.9); Monocytes % 7.2 %; Neutrophils # 17.41 10^3/uL (1.8-7.7); Neutrophils % 86.2 %; Nucleated Red Blood Cells % 0 %; Platelet Count 336 10^3/cmm (130-400); Red Blood Count 4.08 10^6/uL (4.1-5.3); Red Cell Distribution Width 13.6 % (12.1-15.1); White Blood Count 20.2 10^3/uL (4.0-10.0)
[2021-08-07] MEDS: aspirin 81 mg EC Tablet PO (09:38)
[2021-08-07] MEDS: duloxetine 30 mg Capsule PO ×2 (09:38→17:50)
[2021-08-07] MEDS: topiramate 100 mg Tablet 50 MG PO ×2 (09:38→17:51)
[2021-08-07] MEDS: amiodarone 200 mg Tablet 400 MG PO (09:38)
[2021-08-07] MEDS: dilTIAZem ER (24HR) 180 mg Capsule PO (09:38)
[2021-08-07] MEDS: metoprolol tartrate 25 mg Tablet 12.5 MG PO ×2 (09:39→20:55)
[2021-08-07] MEDS: fluconazole premix 200 MG/100 ML PREMIX 100 MG IV (09:39)
[2021-08-07] MEDS: nystatin powder 15 gm Btl 1 APPLIC TOPICAL ×2 (09:40→17:51)
--- NOTE | 2021-08-07 10:44 | P.PN_ITS ---
Subjective Subjective: Mr Tomlin is awake, comfortable today. He denies any acute symptoms. Some mild lower extremity and scrotal edema. Relatively unchanged over the last few days. Has been on IV fluids now for the last few days. Cognitively seems more lucid, better. Vitals/I&O/Wt Last Vital Signs Temp 97.8 F 08/07/21 08:00 Pulse 94 08/07/21 08:00 Resp 20 H 08/07/21 08:00 BP 158/86 08/07/21 08:00 Pulse Ox 97 08/07/21 08:00 08/06/21 08/07/21 08/07/21 22:59 06:59 14:59 Intake Total 1797.333 / 2637.333 100 / 2737.333 1700 / 1700 Output Total 2225 / 3275 1300 / 4575 900 / 900 Balance -427.667 / -637.667 -1200 / -1837.667 800 / 800 Weight last 48 hrs Weight 182.389 kg Weight 177.899 kg Physical Exam Narrative: Constitutional: Awake, comfortable HEENT: Wet mucosa, no jvp, non icteric Lungs: Bilaterally clear without discernible wheeze, rales in all lung zones CVS: S1 S2, no murmurs Abdo: Soft, BS ok Ext 4: 2-3+ edema, peripheral perfusion with no cyanosis Neurological: Grossly non-focal Urinary Catheter Management: 3-way Urethral CBI: Cath Placed During This Visit: yes Urinary Catheter Date of Insertion: 08/05/21 Urinary Catheter Time of Insertion: 10:45 Data : 08/07/21 06:45 08/07/21 05:00 Micro: Microbiology 08/04/21 00:05 Urine Culture - Final Urine,Clean Catch 08/01/21 04:29 Blood Culture - Final Blood NO GROWTH AFTER 5 DAYS 08/01/21 04:26 Blood Culture - Final Blood NO GROWTH AFTER 5 DAYS A&P Assessment and plan (1) Acute kidney injury superimposed on CKD: Status: Acute Plan 1. Acute kidney injury Renal function improving with a high dose of IV fluid over the last few days. He has significant extremity edema and scrotal edema, will hold IV fluids for now and monitor. Avoid usual nephrotoxic agents Dose medication for GFR less than 30 2. Chemistry Looks good, mild acidosis noted 3. Infectious disease issues Being treated empirically for lower extremity cellulitis Culture data is appreciated with group B streptococcus in early blood cultures but no growth since. 4. Confusion Better now, likely toxic encephalopathy in part due to uremia 5. Questionable renal mass; this was not seen on the follow-up CT scan that was performed. Will need periodic follow-up down the road. 6. Hematuria ? garcia trauma Much improved now Thank you for consultation Attestations Medical Necessity Statement*: Eval for SHREE Coding Level of Care Code Acute Central Communications Specialist for Cesario Fraser Diagnoses Acute kidney injury superimposed on CKD N17.9; N18.9
[2021-08-07] MEDS: insulin lispro 100 unit/1 mL SUBCUT ×3 (11:53→21:48)
[2021-08-07 14:08] LABS: Thyroid Stimulating Hormone 1.48 uIU/mL (0.27-4.20)
--- NOTE | 2021-08-07 15:57 | PC.SOCIAL ---
IMM update IMM updated with patient. Copy Pg 2 provided. Initialled, dated, timed, and placed in chart.
--- NOTE | 2021-08-07 19:34 | PM.PN ---
Subjective Subjective: Seen today he did not have a regular day for working with therapy. During my visit he denies any physical complaints. Reported pain here and there, some pain in his legs and feet. No chest pain or pressure. Breathing okay. Vitals/I&O/Wt Last Vital Signs Temp 98.4 F 08/07/21 15:11 Pulse 100 08/07/21 15:11 Resp 20 H 08/07/21 15:11 BP 158/92 08/07/21 15:11 Pulse Ox 96 08/07/21 15:11 08/07/21 08/07/21 08/07/21 06:59 14:59 22:59 Intake Total 100 / 2737.333 2500 / 2500 340 / 2840 Output Total 1300 / 4575 1700 / 1700 300 / 2000 Balance -1200 / -1837.667 800 / 800 40 / 840 Weight last 48 hrs Weight 182.389 kg Weight 177.899 kg Physical Exam Narrative: Up in bed. Const: COMMON NORMALS: alert GENERAL APPEARANCE: cooperative NUTRITIONAL APPEARANCE: obese ORIENTATION/CONSCIOUSNESS: Yes awake; not oriented to place and not oriented to time OTHER: Not a good historian. Otherwise cooperative, follows directions, provides ROS. HENMT: COMMON NORMALS: normocephalic, EAC's normal, Normal external nose present and moist oral mucous membranes HEAD & SCALP: normocephalic NOSE: Normal external nose present EXTERNAL AUDITORY CANAL: EAC's normal Neck/C-Spine: COMMON NORMALS: no meningeal signs Chest: CHEST: Yes Symmetrical chest wall rise Resp: COMMON NORMALS: clear to auscultation bilaterally AUSCULTATION: clear to auscultation bilaterally Cardio: COMMON NORMALS: regular rate, regular rhythm and No murmurs present (Cardio) RATE: regular rate RHYTHM: regular rhythm GI: COMMON NORMALS: Normal to inspection, nondistended, normoactive bowel sounds present, Soft to palpation and non-tender PALPATION: Yes Soft to palpation OTHER: Nontender to deep palpation, including RUQ Extremity: COMMON NORMALS: no pedal edema OTHER: R>L, still some persistent milder erythema, warmth RLE, chronic stasis changes BL Neuro: COMMON NORMALS: moves all extremities SENSORIUM/ORIENTATION: Yes alert, No oriented to place and No oriented to time MENINGEAL SIGNS: Yes no meningeal signs Psych: COMMON NORMALS: mental status grossly normal Skin: COMMON NORMALS: no wounds RASHES: no rashes noted (Resolved RLE below knee/above ankle dull erythema and warmth) WOUNDS: Yes wounds noted (cracked skin dist plantar R foot near hallux skin crack 1cm, no drain/eryth) Urinary Catheter Management: 3-way Urethral CBI: Cath Placed During This Visit: yes Urinary Catheter Date of Insertion: 08/05/21 Urinary Catheter Time of Insertion: 10:45 Data : 08/07/21 06:45 08/07/21 05:00 A&P Assessment and plan (1) Acute encephalopathy: Has been doing better, but today has been more tired. Continues to require 2 L nasal cannula oxygen. Persistent leukocytosis 20,000. Vanco trough appears to be only therapeutic currently. Continue vancomycin. Reassess chest x-ray. Did not have a good day for chemotherapy. Reattempt tomorrow. Overall has been doing better. He is awake and alert. He ate breakfast. No acute abnormality seen on CT of the head. Acute metabolic encephalopathy with possible severe sepsis, with also other abnormalities including SHREE, possible toxic encephalopathy with SHREE and tizanidine or other medications. Hold this medication for now. Management Conditions as above. Status: Acute (2) SIRS (systemic inflammatory response syndrome): Continue vancomycin. Does have some residual cellulitis, warmth, residual erythema in right lower extremity, definitely not as noticeable, but still there, although somewhat hidden with the chronic stasis changes. Reassess chest x-ray. Noted left pulmonary opacity. Possible pneumonia. Continues on empiric antibiotics. Would complete 2 weeks of antibiotics due to gram-positive bacteremia. No intracavitary/palpable masses or vegetations on BERNARDA. Status: Acute (3) Acidosis, lactic: Possible severe sepsis as above. Unknown if prior liver disease. Assess limited hepatobiliary ultrasound with management as above. Does have INR abnormality, 1.34, not on anticoagulation. Status: Acute (4) Acute kidney injury superimposed on CKD: Improving. Completed fluid challenge. Status: Acute (5) Cellulitis: Persistent residual cellulitis. Appears vancomycin has been subtherapeutic until today. Continue vancomycin. For now continue empiric Primaxin. Status: Acute (6) Hyperglycemia: Improved Status: Acute (7) Rhabdomyolysis: Resolved Status: Acute (8) Renal mass, right: ?Exophytic subcentimeter masses from the RIGHT kidney cannot be further characterized on this unenhanced study due to their small size and no contrast. Will need follow-up after acute illness Status: Ruled-out (9) Hypertension: Continue metoprolol Status: Chronic Qualifiers: Hypertension type: essential hypertension Qualified Code(s): I10 - Essential (primary) hypertension (10) Metabolic acidosis: Anion gap anabolic acidosis, lactic acidosis, possible ketoacidosis. Status: Acute (11) Sinus tachycardia: In setting of possible severe sepsis, multiple metabolic abnormalities. Additional assessment as above. Status: Acute (12) ALEX on CPAP: Status: Chronic (13) Type 2 diabetes mellitus with diabetic polyneuropathy: Does not appear to be on metformin. Oral hypoglycemics on hold. Status: Chronic Qualifiers: Diabetes mellitus penitentiary insulin use: with termite exterminator helper use Qualified Code(s): E11.42 - Type 2 diabetes mellitus with diabetic polyneuropathy; Z79.4 - supervisor intermediates (current) use of insulin (14) Bacteremia due to group B Streptococcus: Status: Acute (15) Peripheral vascular disease: Status: Acute (16) Atrial fibrillation with RVR: Continue metoprolol, diltiazem Not on anticoagulation due to bleeding Status: Acute Plan Hematuria: Resolved. Taken off CBI. Thrombocytopenia: Resolved Acute on chronic anemia, Hemoccult stools positive, hold off on anticoagulation Protonix, Carafate, monitor hemoglobin ALEX, CPAP Physical deconditioning: Continue to encourage mobilization, PT. today did not have a good day morning comes to therapy. Reassess. Cmanagement also working on arrangements for rehabilitation. Attestations Medical Necessity Statement*: Continue admission for continued antibiotic therapy persistent cellulitis, SIRS, reassessment of pneumonia, disposition planning and arrangements. Coding Level of Care Code Acute Priming Powder Premix Blender for [facility] Fwd Diagnoses Acute encephalopathy G93.40 SIRS (systemic inflammatory response syndrome) R65.10 Acidosis, lactic E87.2 Acute kidney injury superimposed on CKD N17.9; N18.9 Cellulitis L03.90 Hyperglycemia R73.9 Rhabdomyolysis M62.82 Renal mass, right N28.89 Hypertension I10 Hypertension type: essential hypertension Metabolic acidosis E87.2 Sinus tachycardia R00.0 ALEX on CPAP G47.33; Z99.89 Type 2 diabetes mellitus with diabetic polyneuropathy E11.42; Z79.4 Diabetes mellitus penitentiary insulin use: with penitentiary use Bacteremia due to group B Streptococcus R78.81; B95.1 Peripheral vascular disease I73.9 Atrial fibrillation with RVR I48.91
[2021-08-07 21:27] LABS: Glucose Point of Care 233 mg/dL (70-110)
[2021-08-07 21:39] LABS: Glucose Point of Care 216 mg/dL (70-110)
[2021-08-07 21:39] LABS: Glucose Point of Care 193 mg/dL (70-110)
[2021-08-08] VITALS (9 sets, daily range): BP systolic 106–169; BP diastolic 52–88; PULSE 84–113; RESP 19–20; TEMP 36.5–37.3; O2SAT 93–99
[2021-08-08] MEDS: pantoprazole DR 40 mg Tablet PO ×2 (05:13→17:04)
--- NOTE | 2021-08-08 06:00 | XR_ITS ---
WS: [id number] Exam: XR chest 1V portable [id number] Date/Time of Exam: 08/08/2021 6:07 AM Reason For Exam: Hypoxia Comparison 07/31/2021. The lungs are fully expanded and clear. Cardiomediastinal silhouette is unremarkable for portable swapna hnique. No pleural effusions. Bony structures are intact. Monitoring leads superimpose the chest. XR/XR chest 1V portable [id number] IMPRESSION: 1. No acute cardiopulmonary finding.
[2021-08-08] MEDS: insulin glargine 100 units/1 mL 15 UNIT SUBCUT ×2 (06:21→17:55)
[2021-08-08] MEDS: sucralfate 1 gm Tablet PO ×4 (06:21→22:55)
[2021-08-08 06:22] LABS: Basophils # 0.1 10^3/uL (0.0-0.1); Basophils % 0.3 %; Eosinophils # 0.2 10^3/uL (0.0-0.8); Eosinophils % 1.1 %; Hematocrit 38.8 % (42.0-52.0); Hemoglobin 12.4 g/dL (11.7-16.6); Lymphocytes % 5.3 %; Mean Corpuscular Hemoglobin 29.2 pg (28.0-34.0); Mean Corpuscular Volume 91.5 fl (80-94); Mean Platelet Volume 11.9 fL (7.4-10.4); Monocytes # 1.3 10^3/uL (0.2-0.9); Monocytes % 7.1 %; Neutrophils # 15.75 10^3/uL (1.8-7.7); Neutrophils % 85.6 %; Nucleated Red Blood Cells % 0 %; Platelet Count 316 10^3/cmm (130-400); Red Blood Count 4.24 10^6/uL (4.1-5.3); Red Cell Distribution Width 13.8 % (12.1-15.1); White Blood Count 18.4 10^3/uL (4.0-10.0)
[2021-08-08 06:47] LABS: Alanine Aminotransferase 14 U/L (0-41); Albumin Level 1.4 g/dL (3.5-5.2); Alkaline Phosphatase 115 IU/L (40-130); Aspartate Amino Transferase 14 U/L (0-40); Blood Urea Nitrogen 37 mg/dL (8-23); Calcium 8.7 mg/dL (8.5-10.5); Carbon Dioxide 21 mmol/L (22-29); Chloride 106 mmol/L (98-107); Globulin 4.1 g/dL (1.3-4.6); Glucose 222 mg/dL (65-115); Osmolality Calculated 300 mOsm/kg (285-295); Sodium 137 mmol/L (136-145); Total Bilirubin 0.6 mg/dL (0.15-1.2); Total Protein 5.5 g/dL (6.6-8.7)
[2021-08-08 06:59] LABS: Anion Gap 13.7 (5-19); Potassium 3.7 mmol/L (3.5-5.1)
[2021-08-08 07:03] LABS: Folate Level 7.8 ng/mL (4.5-32.2); Vitamin B12 1335 pg/mL (232-1245)
--- NOTE | 2021-08-08 07:11 | PC.NURSE ---
Report received from JULIET Davies.
[2021-08-08] MEDS: duloxetine 30 mg Capsule PO ×2 (07:52→17:04)
[2021-08-08] MEDS: polyethylene glycol 3350 Pkt 17 gm PO (07:52)
[2021-08-08] MEDS: topiramate 100 mg Tablet 50 MG PO ×2 (07:53→17:55)
[2021-08-08] MEDS: dilTIAZem ER (24HR) 180 mg Capsule PO (07:53)
[2021-08-08] MEDS: docusate sodium 100 mg Capsule PO ×2 (07:53→17:04)
[2021-08-08] MEDS: amiodarone 200 mg Tablet 400 MG PO (07:53)
[2021-08-08] MEDS: metoprolol tartrate 25 mg Tablet 12.5 MG PO ×2 (07:54→22:54)
[2021-08-08] MEDS: fluconazole premix 200 MG/100 ML PREMIX 100 MG IV (07:54)
[2021-08-08] MEDS: nystatin powder 15 gm Btl 1 APPLIC TOPICAL ×2 (07:54→17:04)
[2021-08-08] MEDS: aspirin 81 mg EC Tablet PO (07:54)
[2021-08-08 08:19] LABS: Glucose Point of Care 187 mg/dL (70-110)
[2021-08-08] MEDS: insulin lispro 100 unit/1 mL SUBCUT ×3 (08:31→22:55)
--- NOTE | 2021-08-08 09:42 | P.PN_ITS ---
Subjective Subjective: Mr. Tomlin remains a little bit confused but overall he feels stable. No complaints in general. He still remains rather weak. Somewhat deconditioned. Outpatient placement is now being worked on. He has a reasonable oral intake when prompted. IV fluids were held yesterday. Vitals/I&O/Wt Last Vital Signs Temp 97.7 F 08/08/21 07:09 Pulse 98 08/08/21 07:09 Resp 20 H 08/08/21 04:18 BP 137/52 08/08/21 07:09 Pulse Ox 93 08/08/21 07:09 08/07/21 08/08/21 08/08/21 22:59 06:59 14:59 Intake Total 340 / 2840 800 / 3640 690 / 690 Output Total 800 / 2500 1000 / 3500 250 / 250 Balance -460 / 340 -200 / 140 440 / 440 Weight last 48 hrs Weight 182.389 kg Physical Exam Narrative: Constitutional: Awake, comfortable HEENT: Wet mucosa, no jvp, non icteric Lungs: Bilaterally clear without discernible wheeze, rales in all lung zones CVS: S1 S2, no murmurs Abdo: Soft, BS ok Ext 4: 2-3+ edema, peripheral perfusion with no cyanosis Neurological: Grossly non-focal Urinary Catheter Management: 3-way Urethral CBI: Cath Placed During This Visit: yes Urinary Catheter Date of Insertion: 08/05/21 Urinary Catheter Time of Insertion: 10:45 Data : 08/08/21 06:03 08/08/21 06:03 A&P Assessment and plan (1) Acute kidney injury superimposed on CKD: Status: Acute Plan 1. Acute kidney injury Renal function improved with ivf ivf on hold now oral intake of food/fluids is encouraged Avoid usual nephrotoxic agents Dose medication for GFR less than 30 2. Chemistry Looks good, mild acidosis noted 3. Infectious disease issues Being treated empirically for lower extremity cellulitis Culture data is appreciated with group B streptococcus in early blood cultures but no growth since. 4. Confusion Better now, likely toxic encephalopathy in part due to uremia 5. Questionable renal mass; this was not seen on the follow-up CT scan that was performed. Will need periodic follow-up down the road. 6. Hematuria ? garcia trauma Much improved now Acute renal issues have now resolved. I will sign off his care at this time. Thank you for our involvement in his care, as always we appreciated. Taras Eldridge MD Nephrology [phone] Attestations Medical Necessity Statement*: eval for renal failure Coding Level of Care Code Acute Riprap Placing Supervisor for [facility] Fwd Diagnoses Acute kidney injury superimposed on CKD N17.9; N18.9
--- NOTE | 2021-08-08 11:00 | PC.OT ---
MESSAGE FROM P.T.: PER MD HOLD TREATMENT TODAY. WILL ATTEMPT AGAIN TOMORROW.
[2021-08-08 11:24] LABS: Glucose Point of Care 286 mg/dL (70-110)
--- NOTE | 2021-08-08 12:32 | PM.PN ---
Subjective Subjective: Urology follow-up: Since consult on 08/05/2021 his urine is cleared. CBI has been weaned off. No trouble with the catheter. This picture would fit 1 of UTI related hematuria. Apparently there has also been a decision with patient and family to pursue more supportive/palliative type care. At this point the catheter becomes optional based on comfort issues and is no longer medical requirement from CBI hematuria perspective. I will hold on further recommendations or treatment at this point. Medications: Reviewed: Yes Vitals/I&O/Wt Last Vital Signs Temp 98.1 F 08/08/21 10:26 Pulse 90 08/08/21 10:26 Resp 20 H 08/08/21 04:18 BP 137/71 08/08/21 10:26 Pulse Ox 99 08/08/21 10:26 08/07/21 08/08/21 08/08/21 22:59 06:59 14:59 Intake Total 340 / 2840 800 / 3640 690 / 690 Output Total 800 / 2500 1000 / 3500 730 / 730 Balance -460 / 340 -200 / 140 -40 / -40 Weight last 48 hrs Weight 402 lb 1.6 oz Physical Exam Narrative: Alert, somewhat lethargic but oriented. No acute distress Abdomen is protuberant/obese without distinct tenderness. Martins catheter is draining clear yellow urine. No labored respiration. No active bleeding. Urinary Catheter Management: 3-way Urethral CBI: Cath Placed During This Visit: yes Urinary Catheter Date of Insertion: 08/05/21 Urinary Catheter Time of Insertion: 10:45 Data : 08/08/21 06:03 08/08/21 06:03 A&P Assessment and plan (1) Gross hematuria: No longer requiring CBI. Catheter no longer required from medical perspective from urology point of view. Family seems to indicate that they would prefer leaving a catheter in. He does have a larger bore catheter and can be converted to small bore catheter at his convenience. Status: Acute Plan No further urologic intervention planned. Attestations Medical Necessity Statement*: See attending. Coding Level of Care Code Acute Flying Squad Worker for [facility] Diagnoses Gross hematuria R31.0
--- NOTE | 2021-08-08 16:26 | PC.OT ---
PER CHART; PATIENT IS PURSING HOSPICE CARE AT THIS TIME. THEREFORE WILL D/C OT.
[2021-08-08 17:54] LABS: Glucose Point of Care 199 mg/dL (70-110)
--- NOTE | 2021-08-08 20:25 | PM.PN ---
Subjective Subjective: Reports today that he has not been wanting to participate further with therapy. He and his sister have had a beba discussion with regards to goals of care. Reported he had previously stated he was ready to transition to comfort measures, supportive care alone. Discussing goals of care currently, he is interested in transitioning to hospice care with comfort emphasis. Does not want to continue physical therapy, does not want to pursue rehabilitation. Overall he is doing fair in terms of his breathing, and in terms of pain in his legs. Vitals/I&O/Wt Last Vital Signs Temp 99.1 F 08/08/21 19:45 Pulse 109 H 08/08/21 19:45 Resp 19 H 08/08/21 19:45 BP 106/79 08/08/21 19:45 Pulse Ox 96 08/08/21 19:45 08/08/21 08/08/21 08/08/21 06:59 14:59 22:59 Intake Total 800 / 3640 1012 / 1012 100 / 1112 Output Total 1000 / 3500 730 / 730 680 / 1410 Balance -200 / 140 282 / 282 -580 / -298 Weight last 48 hrs Weight 182.389 kg Physical Exam Narrative: Up in bed. Sister at bedside. Const: COMMON NORMALS: alert GENERAL APPEARANCE: cooperative NUTRITIONAL APPEARANCE: obese ORIENTATION/CONSCIOUSNESS: Yes awake; not oriented to place and not oriented to time HENMT: COMMON NORMALS: normocephalic, EAC's normal, Normal external nose present and moist oral mucous membranes HEAD & SCALP: normocephalic NOSE: Normal external nose present EXTERNAL AUDITORY CANAL: EAC's normal Neck/C-Spine: COMMON NORMALS: no meningeal signs Chest: CHEST: Yes Symmetrical chest wall rise Resp: COMMON NORMALS: clear to auscultation bilaterally AUSCULTATION: clear to auscultation bilaterally Cardio: COMMON NORMALS: regular rate, regular rhythm and No murmurs present (Cardio) RATE: regular rate RHYTHM: regular rhythm GI: COMMON NORMALS: Normal to inspection, nondistended, normoactive bowel sounds present, Soft to palpation and non-tender PALPATION: Yes Soft to palpation OTHER: Nontender to deep palpation Extremity: COMMON NORMALS: no pedal edema OTHER: R>L, still some persistent milder erythema, warmth RLE, chronic stasis changes BL Neuro: COMMON NORMALS: moves all extremities SENSORIUM/ORIENTATION: Yes alert, No oriented to place and No oriented to time MENINGEAL SIGNS: Yes no meningeal signs Psych: COMMON NORMALS: mental status grossly normal Skin: COMMON NORMALS: no wounds RASHES: no rashes noted (Resolved RLE below knee/above ankle dull erythema and warmth) WOUNDS: Yes wounds noted (cracked skin dist plantar R foot near hallux skin crack 1cm, no drain/eryth) Urinary Catheter Management: 3-way Urethral CBI: Cath Placed During This Visit: yes Urinary Catheter Date of Insertion: 08/05/21 Urinary Catheter Time of Insertion: 10:45 Data : 08/08/21 06:03 08/08/21 06:03 A&P Assessment and plan (1) Goals of care, counseling/discussion: As per his and his sisters discussion, and our discussion with him and his sister subsequently during the visit, discussed with case management to additionally assist him and family with arrangements for hospice care in accordance with his wishes for limited goals of care. No longer wishes to participate in therapy. Status: Acute (2) SIRS (systemic inflammatory response syndrome): Vancomycin orally yesterday therapeutic. WBC improving. Afebrile. Continue treatment for pneumonia, right lower extremity cellulitis. Continues on empiric antibiotics. Would complete 2 weeks of antibiotics due to gram-positive bacteremia. No intracavitary/palpable masses or vegetations on BERNARDA. Status: Acute (3) Acute encephalopathy: Appears resolved. He is awake, alert, appropriate. He is now expressing quite clear goals of care preferences as above. Overall has been doing better. He is awake and alert. He ate breakfast. No acute abnormality seen on CT of the head. Acute metabolic encephalopathy with possible severe sepsis, with also other abnormalities including SHREE, possible toxic encephalopathy with SHREE and tizanidine or other medications. Hold this medication for now. Status: Acute (4) Acidosis, lactic: Status: Acute (5) Acute kidney injury superimposed on CKD: Improving. Status: Acute (6) Cellulitis: Persistent residual cellulitis. Appears vancomycin has been subtherapeutic until today. Continue vancomycin. For now continue empiric Primaxin. Status: Acute (7) Hyperglycemia: Improved Status: Acute (8) Rhabdomyolysis: Resolved Status: Acute (9) Renal mass, right: ?Exophytic subcentimeter masses from the RIGHT kidney cannot be further characterized on this unenhanced study due to their small size and no contrast. Will need follow-up after acute illness Status: Ruled-out (10) Hypertension: Continue metoprolol Status: Chronic Qualifiers: Hypertension type: essential hypertension Qualified Code(s): I10 - Essential (primary) hypertension (11) Metabolic acidosis: Anion gap anabolic acidosis, lactic acidosis, possible ketoacidosis. Status: Acute (12) Sinus tachycardia: In setting of possible severe sepsis, multiple metabolic abnormalities. Additional assessment as above. Status: Acute (13) ALEX on CPAP: Status: Chronic (14) Type 2 diabetes mellitus with diabetic polyneuropathy: Does not appear to be on metformin. Oral hypoglycemics on hold. Status: Chronic Qualifiers: Diabetes mellitus senior living insulin use: with senior living use Qualified Code(s): E11.42 - Type 2 diabetes mellitus with diabetic polyneuropathy; Z79.4 - [facility] (current) use of insulin (15) Bacteremia due to group B Streptococcus: Status: Acute (16) Peripheral vascular disease: Status: Acute (17) Atrial fibrillation with RVR: Continue metoprolol, diltiazem Not on anticoagulation due to bleeding Status: Acute Plan Hematuria: Resolved. Off CBI. Martins catheter now optional. Thrombocytopenia: Resolved Acute on chronic anemia, Hemoccult stools positive, hold off on anticoagulation Protonix, Carafate, monitor hemoglobin ALEX, CPAP Morbid obesity Physical deconditioning: No further therapy as per goals of care wishes. Attestations Medical Necessity Statement*: Continue admission for assessment of pneumonia, cellulitis, SIRS, post discharge planning in accordance to expressed goals of care preferences. 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 [facility] Diagnoses Acute encephalopathy G93.40 SIRS (systemic inflammatory response syndrome) R65.10 Acidosis, lactic E87.2 Acute kidney injury superimposed on CKD N17.9; N18.9 Cellulitis L03.90 Hyperglycemia R73.9 Rhabdomyolysis M62.82 Renal mass, right N28.89 Hypertension I10 Hypertension type: essential hypertension Metabolic acidosis E87.2 Sinus tachycardia R00.0 ALEX on CPAP G47.33; Z99.89 Type 2 diabetes mellitus with diabetic polyneuropathy E11.42; Z79.4 Diabetes mellitus senior living insulin use: with extermination supervisor use Bacteremia due to group B Streptococcus R78.81; B95.1 Peripheral vascular disease I73.9 Atrial fibrillation with RVR I48.91 Goals of care, counseling/discussion Z71.89
[2021-08-08 20:35] LABS: Glucose Point of Care 204 mg/dL (70-110)
[2021-08-09] VITALS (10 sets, daily range): BP systolic 144–186; BP diastolic 61–89; PULSE 67–125; RESP 18–22; TEMP 36.6–37.4; O2SAT 93–97
[2021-08-09 04:57] LABS: Basophils # 0.1 10^3/uL (0.0-0.1); Basophils % 0.3 %; Eosinophils # 0.1 10^3/uL (0.0-0.8); Eosinophils % 0.8 %; Hematocrit 35.9 % (42.0-52.0); Hemoglobin 11.9 g/dL (11.7-16.6); Lymphocytes # 0.9 10^3/uL (0.8-4.8); Mean Corpuscular HGB Conc 33.1 g/dL (30.0-36.0); Mean Corpuscular Hemoglobin 29.1 pg (28.0-34.0); Mean Corpuscular Volume 87.8 fl (80-94); Mean Platelet Volume 11.7 fL (7.4-10.4); Monocytes # 1.4 10^3/uL (0.2-0.9); Monocytes % 7.8 %; Neutrophils # 15.74 10^3/uL (1.8-7.7); Neutrophils % 85.4 %; Nucleated Red Blood Cells % 0 %; Platelet Count 356 10^3/cmm (130-400); Red Blood Count 4.09 10^6/uL (4.1-5.3); Red Cell Distribution Width 13.6 % (12.1-15.1); White Blood Count 18.4 10^3/uL (4.0-10.0)
[2021-08-09 05:22] LABS: Anion Gap 12.8 (5-19); Blood Urea Nitrogen 34 mg/dL (8-23); Calcium 9.1 mg/dL (8.5-10.5); Carbon Dioxide 22 mmol/L (22-29); Chloride 108 mmol/L (98-107); Glucose 200 mg/dL (65-115); Osmolality Calculated 301 mOsm/kg (285-295); Potassium 3.8 mmol/L (3.5-5.1); Sodium 139 mmol/L (136-145)
[2021-08-09] MEDS: insulin glargine 100 units/1 mL 15 UNIT SUBCUT ×2 (06:17→17:45)
[2021-08-09] MEDS: pantoprazole DR 40 mg Tablet PO ×2 (06:17→17:44)
[2021-08-09 06:19] LABS: Glucose Point of Care 187 mg/dL (70-110)
[2021-08-09] MEDS: sucralfate 1 gm Tablet PO ×4 (07:58→21:03)
--- NOTE | 2021-08-09 08:56 | PC.SOCIAL ---
IMM Updated Updated pt on IMM. No questions voiced. Provided pt a copy. Initialed, dated, & timed copy in chart.
[2021-08-09] MEDS: insulin lispro 100 unit/1 mL SUBCUT ×4 (10:20→21:42)
[2021-08-09] MEDS: metoprolol tartrate 25 mg Tablet 12.5 MG PO ×2 (10:21→21:03)
[2021-08-09] MEDS: duloxetine 30 mg Capsule PO ×2 (10:21→17:44)
[2021-08-09] MEDS: aspirin 81 mg EC Tablet PO (10:22)
[2021-08-09] MEDS: amiodarone 200 mg Tablet 400 MG PO (10:22)
[2021-08-09] MEDS: dilTIAZem ER (24HR) 180 mg Capsule PO (10:22)
[2021-08-09] MEDS: docusate sodium 100 mg Capsule PO ×2 (10:23→17:51)
[2021-08-09] MEDS: topiramate 100 mg Tablet 50 MG PO ×2 (10:23→17:44)
[2021-08-09] MEDS: nystatin powder 15 gm Btl 1 APPLIC TOPICAL (10:24)
[2021-08-09 10:59] LABS: Glucose Point of Care 209 mg/dL (70-110)
[2021-08-09] MEDS: fluconazole premix 200 MG/100 ML PREMIX 100 MG IV (12:23)
--- NOTE | 2021-08-09 14:42 | PM.PN ---
Subjective Subjective: Having aches and pains in his legs and feet. States breathing is okay. Vitals/I&O/Wt Last Vital Signs Temp 97.9 F 08/09/21 11:47 Pulse 125 H 08/09/21 11:47 Resp 18 08/09/21 11:47 BP 178/89 08/09/21 11:47 Pulse Ox 95 08/09/21 11:47 08/08/21 08/09/21 08/09/21 22:59 06:59 14:59 Intake Total 100 / 1112 0 / 1991 1070 / 1070 Output Total 680 / 1410 1300 / 2710 Balance -580 / -298 -420 / -718 1070 / 1070 Weight last 48 hrs Weight 184.703 kg Physical Exam Narrative: Up in bed. Const: COMMON NORMALS: alert GENERAL APPEARANCE: cooperative NUTRITIONAL APPEARANCE: obese ORIENTATION/CONSCIOUSNESS: Yes awake; not oriented to place and not oriented to time OTHER: Not a good historian. Otherwise cooperative, follows directions, provides ROS. HENMT: COMMON NORMALS: normocephalic, EAC's normal, Normal external nose present and moist oral mucous membranes HEAD & SCALP: normocephalic NOSE: Normal external nose present EXTERNAL AUDITORY CANAL: EAC's normal Neck/C-Spine: COMMON NORMALS: no meningeal signs Chest: CHEST: Yes Symmetrical chest wall rise Resp: COMMON NORMALS: clear to auscultation bilaterally AUSCULTATION: clear to auscultation bilaterally Cardio: COMMON NORMALS: regular rate, regular rhythm and No murmurs present (Cardio) RATE: regular rate RHYTHM: regular rhythm GI: COMMON NORMALS: Normal to inspection, nondistended, normoactive bowel sounds present, Soft to palpation and non-tender PALPATION: Yes Soft to palpation OTHER: Nontender to deep palpation Extremity: COMMON NORMALS: no pedal edema OTHER: R>L, still some persistent milder erythema, warmth RLE, chronic stasis changes BL Neuro: COMMON NORMALS: moves all extremities SENSORIUM/ORIENTATION: Yes alert, No oriented to place and No oriented to time MENINGEAL SIGNS: Yes no meningeal signs Psych: COMMON NORMALS: mental status grossly normal Skin: COMMON NORMALS: no wounds RASHES: no rashes noted (Resolved RLE below knee/above ankle dull erythema and warmth) WOUNDS: Yes wounds noted (cracked skin dist plantar R foot near hallux skin crack 1cm, no drain/eryth) Urinary Catheter Management: 3-way Urethral CBI: Cath Placed During This Visit: yes Urinary Catheter Date of Insertion: 08/05/21 Urinary Catheter Time of Insertion: 10:45 Data : 08/09/21 04:32 08/09/21 04:32 A&P Assessment and plan (1) Goals of care, counseling/discussion: Progressive morbid obesity, BMI 53.7, with complications, with lower extremity cellulitis, with resultant gram-positive bacteremia, also with questionable renal masses, although not further diagnosed. He does not want to pursue additional aggressive medical interventions. Does not want to pursue further physical or occupational therapy or rehabilitation. Would like to transition care to hospice care. With persistent immobility, need for assistance, with pressure ulcer, pneumonia, likely continued progression of comorbidities, his health is likely to continue to decline with terminal outcome. As per his and his sisters discussion, and our discussion with him and his sister subsequently. Status: Acute (2) SIRS (systemic inflammatory response syndrome): Continue treatment for pneumonia, right lower extremity cellulitis. Continues on empiric antibiotics. Would complete 2 weeks of antibiotics due to gram-positive bacteremia. No intracavitary/palpable masses or vegetations on BERNARDA. Status: Acute (3) Acute encephalopathy: Overall has been doing better. He is awake and alert. He ate breakfast. No acute abnormality seen on CT of the head. Acute metabolic encephalopathy with possible severe sepsis, with also other abnormalities including SHREE, possible toxic encephalopathy with SHREE and tizanidine or other medications. Hold this medication for now. Status: Acute (4) Acidosis, lactic: Status: Acute (5) Acute kidney injury superimposed on CKD: Improving. Status: Acute (6) Cellulitis: Persistent residual cellulitis. Appears vancomycin has been subtherapeutic until today. Continue vancomycin. For now continue empiric Primaxin. Status: Acute (7) Hyperglycemia: Improved Status: Acute (8) Rhabdomyolysis: Resolved Status: Acute (9) Renal mass, right: Exophytic subcentimeter masses from the RIGHT kidney cannot be further characterized on this unenhanced study due to their small size and no contrast. Would benefit from additional work-up, but limited by goals of care. Status: Ruled-out (10) Hypertension: Continue metoprolol Status: Chronic Qualifiers: Hypertension type: essential hypertension Qualified Code(s): I10 - Essential (primary) hypertension (11) Metabolic acidosis: Anion gap anabolic acidosis, lactic acidosis, possible ketoacidosis. Status: Acute (12) Sinus tachycardia: In setting of possible severe sepsis, multiple metabolic abnormalities. Additional assessment as above. Status: Acute (13) ALEX on CPAP: Status: Chronic (14) Type 2 diabetes mellitus with diabetic polyneuropathy: Does not appear to be on metformin. Oral hypoglycemics on hold. 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 Off CBI. Martins catheter now optional for comfort. Thrombocytopenia: Resolved Acute on chronic anemia, Hemoccult stools positive, hold off on anticoagulation Protonix, Carafate, monitor hemoglobin ALEX, CPAP Morbid obesity Physical deconditioning: No further therapy as per goals of care wishes. Attestations Medical Necessity Statement*: Continue admission for management of pneumonia, cellulitis, SIRS, post discharge planning and arrangements. 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 [facility] Diagnoses Goals of care, counseling/discussion Z71.89 SIRS (systemic inflammatory response syndrome) R65.10 Acute encephalopathy G93.40 Acidosis, lactic E87.2 Acute kidney injury superimposed on CKD N17.9; N18.9 Cellulitis L03.90 Hyperglycemia R73.9 Rhabdomyolysis M62.82 Renal mass, right N28.89 Hypertension I10 Hypertension type: essential hypertension Metabolic acidosis E87.2 Sinus tachycardia R00.0 ALEX on CPAP G47.33; Z99.89 Type 2 diabetes mellitus with diabetic polyneuropathy E11.42; Z79.4 Diabetes mellitus alf insulin use: with alf use Bacteremia due to group B Streptococcus R78.81; B95.1 Peripheral vascular disease I73.9 Atrial fibrillation with RVR I48.91
[2021-08-09 17:11] LABS: Glucose Point of Care 209 mg/dL (70-110)
[2021-08-10] VITALS (11 sets, daily range): BP systolic 147–171; BP diastolic 73–98; PULSE 96–124; RESP 18–24; TEMP 36.4–37; O2SAT 61–96
--- NOTE | 2021-08-10 04:46 | PC.NURSE ---
INFORMED DR CRUZ OF ELEVATED PT BP FOR THE LAST 2 SCHEDULED VS, MOST RECENT WAS 171/92, AND THAT NO PRN MED WAS AVAILABLE TO TREAT. WANTS TO MONITOR BP AT THIS TIME.
[2021-08-10 05:10] LABS: Basophils # 0.1 10^3/uL (0.0-0.1); Basophils % 0.4 %; Eosinophils # 0.1 10^3/uL (0.0-0.8); Eosinophils % 0.4 %; Hematocrit 35.3 % (42.0-52.0); Hemoglobin 11.7 g/dL (11.7-16.6); Lymphocytes % 5.2 %; Mean Corpuscular HGB Conc 33.1 g/dL (30.0-36.0); Mean Corpuscular Hemoglobin 28.8 pg (28.0-34.0); Mean Corpuscular Volume 86.9 fl (80-94); Mean Platelet Volume 11.6 fL (7.4-10.4); Monocytes # 1.4 10^3/uL (0.2-0.9); Monocytes % 7.4 %; Neutrophils # 16.87 10^3/uL (1.8-7.7); Nucleated Red Blood Cells % 0 %; Platelet Count 377 10^3/cmm (130-400); Red Blood Count 4.06 10^6/uL (4.1-5.3); Red Cell Distribution Width 13.5 % (12.1-15.1); White Blood Count 19.6 10^3/uL (4.0-10.0)
[2021-08-10 05:32] LABS: Anion Gap 12.8 (5-19); Blood Urea Nitrogen 39 mg/dL (8-23); Calcium 9.3 mg/dL (8.5-10.5); Carbon Dioxide 22 mmol/L (22-29); Chloride 110 mmol/L (98-107); Creatinine Clr Calc Pharmacy 95.5465; Glucose 183 mg/dL (65-115); Osmolality Calculated 306 mOsm/kg (285-295); Potassium 3.8 mmol/L (3.5-5.1); Sodium 141 mmol/L (136-145)
[2021-08-10 05:34] LABS: Vancomycin Trough 12.8 ug/mL (10-15)
[2021-08-10] MEDS: insulin glargine 100 units/1 mL 15 UNIT SUBCUT ×2 (06:14→17:37)
[2021-08-10] MEDS: pantoprazole DR 40 mg Tablet PO ×2 (06:14→17:39)
[2021-08-10] MEDS: sucralfate 1 gm Tablet PO ×4 (06:14→20:55)
[2021-08-10] MEDS: metoprolol tartrate 25 mg Tablet PO (06:14)
[2021-08-10 06:51] LABS: Glucose Point of Care 206 mg/dL (70-110)
[2021-08-10 06:51] LABS: Glucose Point of Care 190 mg/dL (70-110)
[2021-08-10] MEDS: insulin lispro 100 unit/1 mL SUBCUT ×3 (08:36→17:36)
[2021-08-10] MEDS: amiodarone 200 mg Tablet 400 MG PO (08:38)
[2021-08-10] MEDS: metoprolol tartrate 25 mg Tablet 12.5 MG PO ×2 (08:38→20:55)
[2021-08-10] MEDS: dilTIAZem ER (24HR) 180 mg Capsule PO (08:38)
[2021-08-10] MEDS: topiramate 100 mg Tablet 50 MG PO ×2 (08:38→17:38)
[2021-08-10] MEDS: docusate sodium 100 mg Capsule PO ×2 (08:40→17:39)
[2021-08-10] MEDS: duloxetine 30 mg Capsule PO ×2 (08:40→17:38)
[2021-08-10] MEDS: aspirin 81 mg EC Tablet PO (08:40)
[2021-08-10] MEDS: polyethylene glycol 3350 Pkt 17 gm PO (08:41)
[2021-08-10] MEDS: nystatin powder 15 gm Btl 1 APPLIC TOPICAL (08:44)
[2021-08-10] MEDS: fluconazole premix 200 MG/100 ML PREMIX 100 MG IV (10:34)
[2021-08-10 11:02] LABS: Glucose Point of Care 200 mg/dL (70-110)
[2021-08-10] MEDS: morphine 10 mg/0.5 mL oral liq UD 5 MG PO ×3 (11:55→21:46)
--- NOTE | 2021-08-10 16:39 | P.PN_ITS ---
Subjective Subjective: He reports he is done fair overnight. Denies any symptoms today. Denies any worsening shortness of breath. Denies new pain apart from prior. Received request today also right from family to shift more focus on comfort care. Vitals/I&O/Wt Last Vital Signs Temp 97.5 F L 08/10/21 16:05 Pulse 103 H 08/10/21 16:05 Resp 18 08/10/21 16:05 BP 152/80 08/10/21 16:05 Pulse Ox 95 08/10/21 16:05 08/10/21 08/10/21 08/10/21 06:59 14:59 22:59 Intake Total 1700 / 3320 830 / 830 Output Total 1550 / 3000 1000 / 1000 Balance 150 / 320 -170 / -170 Weight last 48 hrs Weight 180.439 kg Weight 184.703 kg Physical Exam Narrative: Reclined in bed. Const: COMMON NORMALS: alert GENERAL APPEARANCE: cooperative NUTRITIONAL APPEARANCE: obese ORIENTATION/CONSCIOUSNESS: Yes awake; not oriented to place and not oriented to time HENMT: COMMON NORMALS: normocephalic, EAC's normal, Normal external nose present and moist oral mucous membranes HEAD & SCALP: normocephalic NOSE: Normal external nose present EXTERNAL AUDITORY CANAL: EAC's normal Neck/C-Spine: COMMON NORMALS: no meningeal signs Chest: CHEST: Yes Symmetrical chest wall rise Resp: COMMON NORMALS: clear to auscultation bilaterally AUSCULTATION: clear to auscultation bilaterally Cardio: COMMON NORMALS: regular rate, regular rhythm and No murmurs present (Cardio) RATE: regular rate RHYTHM: regular rhythm GI: COMMON NORMALS: Normal to inspection, nondistended, normoactive bowel sounds present, Soft to palpation and non-tender PALPATION: Yes Soft to palpation Extremity: COMMON NORMALS: no pedal edema OTHER: R>L, still some persistent milder erythema, warmth RLE, chronic stasis changes BL Neuro: COMMON NORMALS: moves all extremities SENSORIUM/ORIENTATION: Yes alert, No oriented to place and No oriented to time MENINGEAL SIGNS: Yes no meningeal signs Psych: COMMON NORMALS: mental status grossly normal Skin: COMMON NORMALS: no wounds RASHES: rashes noted (RLE below knee/above ankle dull erythema and warmth) WOUNDS: Yes wounds noted (cracked skin dist plantar R foot near hallux skin crack 1cm, no drain/eryth) Urinary Catheter Management: 3-way Urethral CBI: Cath Placed During This Visit: yes Urinary Catheter Date of Insertion: 08/05/21 Urinary Catheter Time of Insertion: 10:45 Data : 08/10/21 04:40 08/10/21 04:40 A&P Assessment and plan (1) Goals of care, counseling/discussion: Request for more focus on comfort measures from family. We will at this time stop his lab work. De-escalate vital signs to every shift. DC cardiac monitoring. We will also add Roxanol for pain. PT, OT were previously discontinued. Continue supportive measures. Continue placement arrangements. Progressive morbid obesity, BMI 53.7, with complications, with lower extremity cellulitis, with resultant gram-positive bacteremia, also with questionable renal masses, although not further diagnosed. He does not want to pursue additional aggressive medical interventions. Does not want to pursue further physical or occupational therapy or rehabilitation. Would like to transition care to hospice care. With persistent immobility, need for assistance, with pressure ulcer, pneumonia, likely continued progression of comorbidities, his health is likely to continue to decline with terminal outcome. As per his and his sisters discussion, and our discussion with him and his sister subsequently. Status: Acute (2) SIRS (systemic inflammatory response syndrome): Continue treatment for pneumonia, right lower extremity cellulitis. Continues on empiric antibiotics. Would complete 2 weeks of antibiotics due to gram-positive bacteremia. No intracavitary/palpable masses or vegetations on BERNARDA. Status: Acute (3) Acute encephalopathy: Waxing and waning mental status. Today responds to questions, but appears more tired/weaker. No acute abnormality seen on CT of the head. Acute metabolic encephalopathy with possible severe sepsis, on presentation with also other abnormalities including SHREE, possible toxic encephalopathy with SHREE and tizanidine or other medications. Status: Acute (4) Acidosis, lactic: Status: Acute (5) Acute kidney injury superimposed on CKD: Improving. Status: Acute (6) Cellulitis: Persistent residual cellulitis. Appears vancomycin has been subtherapeutic until today. Continue vancomycin. For now continue empiric Primaxin. Status: Acute (7) Hyperglycemia: Improved Status: Acute (8) Rhabdomyolysis: Resolved Status: Acute (9) Renal mass, right: Exophytic subcentimeter masses from the RIGHT kidney cannot be further characterized on this unenhanced study due to their small size and no contrast. Would benefit from additional work-up, but limited by goals of care. Status: Ruled-out (10) Hypertension: Continue metoprolol Status: Chronic Qualifiers: Hypertension type: essential hypertension Qualified Code(s): I10 - Essential (primary) hypertension (11) Metabolic acidosis: Anion gap anabolic acidosis, lactic acidosis, possible ketoacidosis. Status: Acute (12) Sinus tachycardia: In setting of possible severe sepsis, multiple metabolic abnormalities. Additional assessment as above. Status: Acute (13) ALEX on CPAP: Status: Chronic (14) Type 2 diabetes mellitus with diabetic polyneuropathy: Does not appear to be on metformin. Oral hypoglycemics on hold. Status: Chronic Qualifiers: Diabetes mellitus assisted insulin use: with assisted use Qualified Code(s): E11.42 - Type 2 diabetes mellitus with diabetic polyneuropathy; Z79.4 - [facility] (current) use of insulin (15) Bacteremia due to group B Streptococcus: Status: Acute (16) Peripheral vascular disease: Status: Acute (17) Atrial fibrillation with RVR: Continue metoprolol, diltiazem Not on anticoagulation due to bleeding Status: Acute Plan Hematuria: Resolved. Off CBI. Martins catheter now optional for comfort. Thrombocytopenia: Resolved Acute on chronic anemia, Hemoccult stools positive, hold off on anticoagulation Protonix, Carafate, monitor hemoglobin ALEX, CPAP Morbid obesity Physical deconditioning: No further therapy as per goals of care wishes. Attestations Medical Necessity Statement*: Continue admission pending post discharge arrangements for continuation of care with emphasis on comfort with hospice. Currently continue treatment for pneumonia, cellulitis with overall de- escalation of care in accordance with patient and family wishes. 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 [employer] Diagnoses Goals of care, counseling/discussion Z71.89 SIRS (systemic inflammatory response syndrome) R65.10 Acute encephalopathy G93.40 Acidosis, lactic E87.2 Acute kidney injury superimposed on CKD N17.9; N18.9 Cellulitis L03.90 Hyperglycemia R73.9 Rhabdomyolysis M62.82 Renal mass, right N28.89 Hypertension I10 Hypertension type: essential hypertension Metabolic acidosis E87.2 Sinus tachycardia R00.0 ALEX on CPAP G47.33; Z99.89 Type 2 diabetes mellitus with diabetic polyneuropathy E11.42; Z79.4 Diabetes mellitus continuous churn buttermaker insulin use: with assisted use Bacteremia due to group B Streptococcus R78.81; B95.1 Peripheral vascular disease I73.9 Atrial fibrillation with RVR I48.91
[2021-08-10 17:08] LABS: Glucose Point of Care 155 mg/dL (70-110)
[2021-08-10 20:56] LABS: Glucose Point of Care 134 mg/dL (70-110)
[2021-08-11] MEDS: pantoprazole DR 40 mg Tablet PO ×2 (05:59→17:50)
[2021-08-11] MEDS: sucralfate 1 gm Tablet PO ×4 (06:00→22:16)
[2021-08-11] MEDS: insulin glargine 100 units/1 mL 15 UNIT SUBCUT ×2 (06:04→17:56)
[2021-08-11 06:45] LABS: Glucose Point of Care 173 mg/dL (70-110)
[2021-08-11 07:13] VITALS: BP 181/92; PULSE 124; RESP 20; TEMP 37.3; O2SAT 94
[2021-08-11 09:06] VITALS: PULSE 102; O2SAT 93
[2021-08-11] MEDS: insulin lispro 100 unit/1 mL SUBCUT ×3 (09:44→17:48)
[2021-08-11] MEDS: morphine 10 mg/0.5 mL oral liq UD 5 MG PO ×2 (09:53→15:15)
[2021-08-11] MEDS: dilTIAZem ER (24HR) 180 mg Capsule PO (09:54)
[2021-08-11] MEDS: amiodarone 200 mg Tablet 400 MG PO (09:54)
[2021-08-11] MEDS: topiramate 100 mg Tablet 50 MG PO ×2 (09:55→17:50)
[2021-08-11] MEDS: aspirin 81 mg EC Tablet PO (09:55)
[2021-08-11] MEDS: duloxetine 30 mg Capsule PO ×2 (09:55→17:50)
[2021-08-11] MEDS: metoprolol tartrate 25 mg Tablet 12.5 MG PO (09:56)
[2021-08-11] MEDS: fluconazole 100 mg Tablet 200 MG PO (10:02)
--- NOTE | 2021-08-11 10:42 | PC.SOCIAL ---
IMM update IMM updated with patient. Verbalized an understanding. Copy Pg 2 provided. Initialled, dated, timed, and placed in chart.
[2021-08-11 11:12] LABS: Glucose Point of Care 190 mg/dL (70-110)
[2021-08-11] MEDS: linezolid 600 mg Tablet PO ×2 (11:48→22:24)
[2021-08-11 12:13] VITALS: BP 181/115; PULSE 110; RESP 20; TEMP 36.5; O2SAT 94
[2021-08-11 16:12] VITALS: BP 160/78; PULSE 112; RESP 18; TEMP 37.1; O2SAT 94
[2021-08-11 17:17] LABS: Glucose Point of Care 182 mg/dL (70-110)
[2021-08-11 20:00] VITALS: BP 174/76; PULSE 117; RESP 18; TEMP 37.8; O2SAT 94
[2021-08-11 20:24] VITALS: PULSE 111; O2SAT 94
--- NOTE | 2021-08-11 20:34 | PM.PN ---
Subjective Subjective: He has been having scattered aches and pains. Has been growing weaker since not working with therapy, more immobile. Reluctant to be turned. Just wanting to be comfortable. Receiving sublingual morphine. Vitals/I&O/Wt Last Vital Signs Temp 100.1 F H 08/11/21 20:00 Pulse 111 H 08/11/21 20:24 Resp 18 08/11/21 20:00 BP 174/76 08/11/21 20:00 Pulse Ox 94 08/11/21 20:24 08/11/21 08/11/21 08/11/21 06:59 14:59 22:59 Intake Total 1300 / 3600 340 / 340 450 / 790 Output Total 1525 / 3225 1601 / 1601 Balance -225 / 375 340 / 340 -1151 / -811 Weight last 48 hrs Weight 177.99 kg Weight 177.922 kg Weight 180.439 kg Physical Exam Narrative: Reclined in bed. Const: COMMON NORMALS: alert GENERAL APPEARANCE: cooperative NUTRITIONAL APPEARANCE: obese ORIENTATION/CONSCIOUSNESS: Yes awake; not oriented to place and not oriented to time OTHER: Not a good historian. Otherwise cooperative, follows directions, provides ROS. HENMT: COMMON NORMALS: normocephalic, EAC's normal, Normal external nose present and moist oral mucous membranes HEAD & SCALP: normocephalic NOSE: Normal external nose present EXTERNAL AUDITORY CANAL: EAC's normal Neck/C-Spine: COMMON NORMALS: no meningeal signs Chest: CHEST: Yes Symmetrical chest wall rise Resp: COMMON NORMALS: clear to auscultation bilaterally AUSCULTATION: clear to auscultation bilaterally Cardio: COMMON NORMALS: regular rate, regular rhythm and No murmurs present (Cardio) RATE: regular rate RHYTHM: regular rhythm GI: COMMON NORMALS: Normal to inspection, nondistended, normoactive bowel sounds present, Soft to palpation and non-tender PALPATION: Yes Soft to palpation OTHER: Nontender to deep palpation Extremity: COMMON NORMALS: no pedal edema OTHER: R>L, still some persistent milder erythema, warmth RLE, chronic stasis changes BL Neuro: COMMON NORMALS: moves all extremities SENSORIUM/ORIENTATION: Yes alert, No oriented to place and No oriented to time MENINGEAL SIGNS: Yes no meningeal signs Psych: COMMON NORMALS: mental status grossly normal Skin: COMMON NORMALS: no wounds RASHES: rashes noted (RLE below knee/above ankle dull erythema and warmth) WOUNDS: Yes wounds noted (cracked skin dist plantar R foot near hallux skin crack 1cm, no drain/eryth) Urinary Catheter Management: 3-way Urethral CBI: Cath Placed During This Visit: yes Urinary Catheter Date of Insertion: 08/05/21 Urinary Catheter Time of Insertion: 10:45 Data : 08/10/21 04:40 08/10/21 04:40 A&P Assessment and plan (1) Goals of care, counseling/discussion: Continued functional decline. Continues to be more immobile. Reluctant to return. Just wanting to be kept comfortable. Further de-escalated vancomycin and stop Vanco troughs, switched to linezolid if he will take it. Request for more focus on comfort measures from family. We will at this time stop his lab work. De-escalate vital signs to every shift. DC cardiac monitoring. We will also add Roxanol for pain. PT, OT were previously discontinued. Continue supportive measures. Continue placement arrangements. Progressive morbid obesity, BMI 53.7, with complications, with lower extremity cellulitis, with resultant gram-positive bacteremia, also with questionable renal masses, although not further diagnosed. He does not want to pursue additional aggressive medical interventions. Does not want to pursue further physical or occupational therapy or rehabilitation. Would like to transition care to hospice care. With persistent immobility, need for assistance, with pressure ulcer, pneumonia, likely continued progression of comorbidities, his health is likely to continue to decline with terminal outcome. As per his and his sisters discussion, and our discussion with him and his sister subsequently. Status: Acute (2) SIRS (systemic inflammatory response syndrome): Continue treatment for pneumonia, right lower extremity cellulitis. Continues on empiric antibiotics. Would complete 2 weeks of antibiotics due to gram-positive bacteremia. No intracavitary/palpable masses or vegetations on BERNARDA. Status: Acute (3) Atrial fibrillation with RVR: Worse control of atrial fibrillation, A. fib with RVR, heart rates in the 120s. Increased metoprolol dose to 25 mg twice daily. Continue diltiazem Not on anticoagulation due to bleeding Status: Acute (4) Acute encephalopathy: Waxing and waning mental status. Today responds to questions, but appears more tired/weaker. No acute abnormality seen on CT of the head. Acute metabolic encephalopathy with possible severe sepsis, on presentation with also other abnormalities including SHREE, possible toxic encephalopathy with SHREE and tizanidine or other medications. Status: Acute (5) Acidosis, lactic: Status: Acute (6) Acute kidney injury superimposed on CKD: Improving. Status: Acute (7) Cellulitis: Persistent residual cellulitis. Appears vancomycin has been subtherapeutic until today. Continue vancomycin. For now continue empiric Primaxin. Status: Acute (8) Hyperglycemia: Improved Status: Acute (9) Rhabdomyolysis: Resolved Status: Acute (10) Renal mass, right: Exophytic subcentimeter masses from the RIGHT kidney cannot be further characterized on this unenhanced study due to their small size and no contrast. Would benefit from additional work-up, but limited by goals of care. Status: Ruled-out (11) Hypertension: Continue metoprolol Status: Chronic Qualifiers: Hypertension type: essential hypertension Qualified Code(s): I10 - Essential (primary) hypertension (12) Metabolic acidosis: Anion gap anabolic acidosis, lactic acidosis, possible ketoacidosis. Status: Acute (13) ALEX on CPAP: Status: Chronic (14) Type 2 diabetes mellitus with diabetic polyneuropathy: Does not appear to be on metformin. Oral hypoglycemics on hold. 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 fib with RVR. In setting of possible severe sepsis, multiple metabolic abnormalities. Additional assessment as above. Status: Acute Plan Hematuria: Resolved. Off CBI. Martins catheter now optional for comfort. Thrombocytopenia: Resolved Acute on chronic anemia, Hemoccult stools positive, hold off on anticoagulation Protonix, Carafate, monitor hemoglobin ALEX, CPAP Morbid obesity Physical deconditioning: No further therapy as per goals of care wishes. Attestations Medical Necessity Statement*: Continue transition of care to emphasis on comfort. Optimize A. fib with RVR. Arrangements for hospice care. 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 [employer] Diagnoses Goals of care, counseling/discussion Z71.89 SIRS (systemic inflammatory response syndrome) R65.10 Acute encephalopathy G93.40 Acidosis, lactic E87.2 Acute kidney injury superimposed on CKD N17.9; N18.9 Cellulitis L03.90 Hyperglycemia R73.9 Rhabdomyolysis M62.82 Renal mass, right N28.89 Hypertension I10 Hypertension type: essential hypertension Metabolic acidosis E87.2 Sinus tachycardia R00.0 ALEX on CPAP G47.33; Z99.89 Type 2 diabetes mellitus with diabetic polyneuropathy E11.42; Z79.4 Diabetes mellitus fpc insulin use: with fpc use Bacteremia due to group B Streptococcus R78.81; B95.1 Peripheral vascular disease I73.9 Atrial fibrillation with RVR I48.91
[2021-08-11 21:22] LABS: Glucose Point of Care 124 mg/dL (70-110)
[2021-08-11] MEDS: metoprolol tartrate 25 mg Tablet PO (22:16)
[2021-08-12] MEDS: insulin glargine 100 units/1 mL 15 UNIT SUBCUT (06:18)
[2021-08-12] MEDS: sucralfate 1 gm Tablet PO ×2 (06:18→20:41)
[2021-08-12] MEDS: pantoprazole DR 40 mg Tablet PO (06:18)
[2021-08-12 08:00] VITALS: BP 171/82; PULSE 124; PULSE 92; RESP 24; TEMP 36.9; O2SAT 94
[2021-08-12 08:18] LABS: Glucose Point of Care 196 mg/dL (70-110)
[2021-08-12] MEDS: metoprolol tartrate 25 mg Tablet PO ×2 (10:16→20:41)
[2021-08-12] MEDS: amiodarone 200 mg Tablet 400 MG PO (10:16)
[2021-08-12] MEDS: linezolid 600 mg Tablet PO ×2 (10:16→22:38)
[2021-08-12] MEDS: topiramate 100 mg Tablet 50 MG PO (10:17)
[2021-08-12] MEDS: nystatin powder 15 gm Btl 1 APPLIC TOPICAL (10:17)
[2021-08-12] MEDS: dilTIAZem ER (24HR) 180 mg Capsule PO (10:18)
[2021-08-12 11:41] LABS: Glucose Point of Care 203 mg/dL (70-110)
[2021-08-12 12:33] VITALS: BP 137/78; PULSE 90; RESP 18; TEMP 36.7; O2SAT 90
[2021-08-12] MEDS: morphine 10 mg/0.5 mL oral liq UD 5 MG PO (12:54)
--- NOTE | 2021-08-12 14:50 | P.PN_ITS ---
Subjective Subjective: Patient was seen this morning, he is alert to person, not to place, not to time, he does not want to take any more of his medications he tells me this morning, he complains of pain, but is not very specific and where he is hurting, Vitals/I&O/Wt Last Vital Signs Temp 98.1 F 08/12/21 12:33 Pulse 90 08/12/21 12:33 Resp 18 08/12/21 12:33 BP 137/78 08/12/21 12:33 Pulse Ox 90 08/12/21 12:33 08/11/21 08/12/21 08/12/21 22:59 06:59 14:59 Intake Total 450 / 790 200 / 990 340 / 340 Output Total 1601 / 1601 2100 / 2100 Balance -1151 / -811 200 / -611 -1760 / -1760 Weight last 48 hrs Weight 178.171 kg Weight 177.99 kg Weight 177.922 kg Physical Exam Const: COMMON NORMALS: no acute distress and alert ORIENTATION/CONSCIOUSNESS: Yes awake and Yes oriented to person; not oriented to place and not oriented to time Resp: COMMON NORMALS: normal respiratory effort, No retractions, No use of accessory muscles and clear to auscultation bilaterally AUSCULTATION: clear to auscultation bilaterally Cardio: COMMON NORMALS: regular rate, regular rhythm, S1 normal heart sound present and S2 normal heart sound present RATE: regular rate RHYTHM: regular rhythm HEART SOUNDS: S1 normal heart sound present and S2 normal heart sound present GI: COMMON NORMALS: Normal to inspection, nondistended, normoactive bowel sounds present, Soft to palpation, non-tender and No hepatosplenomegaly present PALPATION: Yes Soft to palpation and Yes No hepatosplenomegaly present Extremity: COMMON NORMALS: no pedal edema Neuro: SENSORIUM/ORIENTATION: Yes alert, Yes oriented to person, No oriented to place and No oriented to time Urinary Catheter Management: 3-way Urethral CBI: Cath Placed During This Visit: yes Urinary Catheter Date of Insertion: 08/05/21 Urinary Catheter Time of Insertion: 10:45 Data : 08/10/21 04:40 08/10/21 04:40 A&P Assessment and plan (1) Goals of care, counseling/discussion: Continued functional decline. Continues to be more immobile. Reluctant to return. Just wanting to be kept comfortable. On Zyvox Request for more focus on comfort measures from family. We will at this time stop his lab work. De-escalate vital signs to every shift. DC cardiac monitoring. We will also add Roxanol for pain. PT, OT were previously discontinued. Continue supportive measures. Continue placement arrangements. Progressive morbid obesity, BMI 53.7, with complications, with lower extremity cellulitis, with resultant gram-positive bacteremia, also with questionable renal masses, although not further diagnosed. He does not want to pursue additional aggressive medical interventions. Does not want to pursue further physical or occupational therapy or rehabilitation. Would like to transition care to hospice care. With persistent immobility, need for assistance, with pressure ulcer, pneumonia, likely continued progression of comorbidities, his health is likely to continue to decline with terminal outcome. As per his and his sisters discussion, and our discussion with him and his sister subsequently. Status: Acute (2) SIRS (systemic inflammatory response syndrome): Continue treatment for pneumonia, right lower extremity cellulitis. Continues on empiric antibiotics. Would complete 2 weeks of antibiotics due to gram-positive bacteremia. No intracavitary/palpable masses or vegetations on BERNARDA. Status: Acute (3) Atrial fibrillation with RVR: Worse control of atrial fibrillation, A. fib with RVR, heart rates in the 120s. Increased metoprolol dose to 25 mg twice daily. Continue diltiazem Not on anticoagulation due to bleeding Status: Acute (4) Acute encephalopathy: Waxing and waning mental status. Today responds to questions, but appears more tired/weaker. No acute abnormality seen on CT of the head. Acute metabolic encephalopathy with possible severe sepsis, on presentation with also other abnormalities including SHREE, possible toxic encephalopathy with SHREE and tizanidine or other medications. Status: Acute (5) Acidosis, lactic: Status: Acute (6) Acute kidney injury superimposed on CKD: Improving. Status: Acute (7) Cellulitis: Persistent residual cellulitis. Appears vancomycin has been subtherapeutic until today. Continue vancomycin. For now continue empiric Primaxin. Status: Acute (8) Hyperglycemia: Improved Status: Acute (9) Rhabdomyolysis: Resolved Status: Acute (10) Renal mass, right: Exophytic subcentimeter masses from the RIGHT kidney cannot be further characterized on this unenhanced study due to their small size and no contrast. Would benefit from additional work-up, but limited by goals of care. Status: Ruled-out (11) Hypertension: Continue metoprolol Status: Chronic Qualifiers: Hypertension type: essential hypertension Qualified Code(s): I10 - Essential (primary) hypertension (12) Metabolic acidosis: Anion gap anabolic acidosis, lactic acidosis, possible ketoacidosis. Status: Acute (13) ALEX on CPAP: Status: Chronic (14) Type 2 diabetes mellitus with diabetic polyneuropathy: Does not appear to be on metformin. Oral hypoglycemics on hold. 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 fib with RVR. In setting of possible severe sepsis, multiple metabolic abnormalities. Additional assessment as above. Status: Acute Plan Hematuria: Resolved. Off CBI. Martins catheter now optional for comfort. Thrombocytopenia: Resolved Acute on chronic anemia, Hemoccult stools positive, hold off on anticoagulation Protonix, Carafate, monitor hemoglobin ALEX, CPAP Morbid obesity Physical deconditioning: No further therapy as per goals of care wishes. 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 [employer] Diagnoses Goals of care, counseling/discussion Z71.89 SIRS (systemic inflammatory response syndrome) R65.10 Atrial fibrillation with RVR I48.91 Acute encephalopathy G93.40 Acidosis, lactic E87.2 Acute kidney injury superimposed on CKD N17.9; N18.9 Cellulitis L03.90 Hyperglycemia R73.9 Rhabdomyolysis M62.82 Renal mass, right N28.89 Hypertension I10 Hypertension type: essential hypertension Metabolic acidosis E87.2 ALEX on CPAP G47.33; Z99.89 Type 2 diabetes mellitus with diabetic polyneuropathy E11.42; Z79.4 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
[2021-08-12 15:22] VITALS: BP 164/72; PULSE 97; RESP 29; TEMP 36.6; O2SAT 93
[2021-08-12 17:23] LABS: Glucose Point of Care 230 mg/dL (70-110)
[2021-08-12 20:00] VITALS: BP 146/89; PULSE 93; RESP 19; TEMP 37.2; O2SAT 90
[2021-08-12 20:30] VITALS: PULSE 103; O2SAT 94
[2021-08-12 20:52] LABS: Glucose Point of Care 220 mg/dL (70-110)
[2021-08-12] MEDS: insulin lispro 100 unit/1 mL SUBCUT (21:59)
[2021-08-13] MEDS: pantoprazole DR 40 mg Tablet PO (06:29)
[2021-08-13] MEDS: sucralfate 1 gm Tablet PO ×2 (06:29→23:03)
[2021-08-13 06:45] LABS: Glucose Point of Care 222 mg/dL (70-110)
[2021-08-13 07:29] VITALS: BP 160/84; PULSE 125; RESP 20; TEMP 37.4; O2SAT 95
[2021-08-13] MEDS: morphine 10 mg/0.5 mL oral liq UD 5 MG PO (08:59)
[2021-08-13 11:23] LABS: Glucose Point of Care 319 mg/dL (70-110)
--- NOTE | 2021-08-13 11:35 | PC.SOCIAL ---
IMM Updated Updated pt's sister on IMM. No questions voiced. Provided sister a copy. Initialed, dated, & timed copy in chart.
--- NOTE | 2021-08-13 12:59 | P.DS_ITS ---
Discharge Providers Date of Admission: 07/29/21 04:26 Date of Discharge: August 13, 2021 Attending Provider at Admission: Sohan Farmer MD Attending Provider at Discharge: Aba Carreon MD Primary Care Provider: Domingo Lazcano DO Diagnoses at Discharge Discharge Diagnosis (1) Goals of care, counseling/discussion: Status: Acute (2) SIRS (systemic inflammatory response syndrome): Status: Acute (3) Atrial fibrillation with RVR: Status: Acute (4) Acute encephalopathy: Status: Acute (5) Acidosis, lactic: Status: Acute (6) Acute kidney injury superimposed on CKD: Status: Acute (7) Cellulitis: Status: Acute (8) Hyperglycemia: Status: Acute (9) Rhabdomyolysis: Status: Acute (10) Renal mass, right: Status: Ruled-out (11) Hypertension: Status: Chronic Qualifiers: Hypertension type: essential hypertension Qualified Code(s): I10 - Essential (primary) hypertension (12) Metabolic acidosis: Status: Acute (13) ALEX on CPAP: Status: Chronic (14) Type 2 diabetes mellitus with diabetic polyneuropathy: Status: Chronic Qualifiers: Diabetes mellitus group home insulin use: with intermediate designer use Qualified Code(s): E11.42 - Type 2 diabetes mellitus with diabetic polyneuropathy; Z79.4 - terminal operations manager (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) use of insulin (15) Bacteremia due to group B Streptococcus: Status: Acute (16) Peripheral vascular disease: Status: Acute (17) Sinus tachycardia: Status: Acute Reason for Visit Reason for Visit: Weakness Hospital Course Hospital Course This is a 76-year-old male with a past medical history of hypertension, [id number] type 2 diabetes mellitus, sleep apnea who presents [facility] due to complaints of generalized weakness Patient presented to [facility] due to SIRS, SHREE, acute encephalopathy, lactic acidosis secondary to pneumonia, right lower extremity cellulitis and group B strep bacteremia. Patient also developed A. fib with rapid ventricular response secondary to sepsis. Patient received broad-spectrum antibiotic therapy, rate control, anticoagulation, transesophageal echocardiogram was negative for valvular endocarditis. He was also found to have peripheral vascular disease, treated with antiplatelet therapy and anticoagulation. Patient's hospitalization was complicated with hematuria, requiring anticoagulation to be held, and continuous bladder irrigation. He also developed acute kidney injury. He also developed waxing waning mentation, concerning for acute encephalopathy. Overall patient's right lower extremity cellulitis improved. Group B bacteremia resolved. His pneumonia also improved. Patient continues to have episodes of acute encephalopathy, CT of the head within normal limits, likely combination of sepsis, uremia from renal failure. Patient mentation gradually improved, but at times would wax and wane. Once patient's mentation improved, he was alert oriented x3, he voiced to family members that he did not want to have any more medical interventions, he just wanted to be let go comfortably. Upon her assessment, at that time patient could make informed decision for himself, after detailed discussion with the patient and family, patient would like to to be put on hospice. Patient did not want to take any more medications, he just wanted to remain comfortable, did not want to have aggressive interventions. after discussing the risks and benefits of hospice, him and his family wishes any, all questions answered, agreed to proceed with hospice. Patient was made hospice, and will be discharged to custodial on hospice. Patient's home medications have been stopped as he did not want to take any more medications during the end hospitalization, he just wanted to remain comfortable, this was reiterated with patient and family at bedside. The morning of 08/13/2021, patient sister was at bedside, patient's had refused all his medications, heart rates in the 120s, likely A. fib with RVR, evidence of tachypnea, crackles on exam, with concerns for pulm edema, he had waxing waning mentation, alert to person, not to place, not to time, would fall back asleep, had 2+ pitting edema sister wants him to remain comfortable, wants to ease his pain, ease his suffering, agreeable to go to custodial on hospice. Will discharge to custodial on hospice. Physical Exam Const: COMMON NORMALS: no acute distress EXAM LIMITATIONS: altered mental status ORIENTATION/CONSCIOUSNESS: Yes awake and Yes oriented to person; not oriented to place and not oriented to time OTHER: Patient is drowsy, does awaken, falls back asleep Resp: COMMON NORMALS: normal respiratory effort, No retractions and No use of accessory muscles AUSCULTATION: wheezes Cardio: COMMON NORMALS: regular rhythm, S1 normal heart sound present and S2 normal heart sound present RATE: tachycardic RHYTHM: regular rhythm HEART SOUNDS: S1 normal heart sound present and S2 normal heart sound present GI: COMMON NORMALS: Normal to inspection, nondistended, normoactive bowel sounds present, Soft to palpation, non-tender and No hepatosplenomegaly present PALPATION: Yes Soft to palpation and Yes No hepatosplenomegaly present Extremity: COMMON NORMALS: no pedal edema Neuro: SENSORIUM/ORIENTATION: Yes oriented to person, No oriented to place and No oriented to time Psych: COMMON NORMALS: mental status grossly normal Urinary Catheter Management: 3-way Urethral CBI: Cath Placed During This Visit: yes Urinary Catheter Date of Insertion: 08/05/21 Urinary Catheter Time of Insertion: 10:45 Discharge Data Studies Completed and Pending Completed Studies During Hospitalization Category Date Time Status CT abdomen renal stone [CT kidney stone [id number]] Routine Cat Scan 07/29/21 08:[address] head wo con* [id number] Routine Cat Scan 08/05/21 14:[address] head wo con* [id number] Urgent Cat Scan 07/29/21 02:20 Completed CTA lower extremity [place] [id number]] Cat Scan 07/29/21 17:31 Completed Stat XR chest 1V portable [id number] Routine Exams 07/30/21 07:00 Completed XR chest 1V portable [id number] Routine Exams 07/31/21 07:00 Completed XR chest 1V portable [id number] Routine Exams 08/08/21 06:00 Completed XR chest 1V portable [id number] Stat Exams 07/29/21 02:11 Completed CV. echo w/w bubble cont [id number] Routine Ultrasound 07/29/21 05:37 Completed BERNARDA [CV. echo transesophageal [id number]] Routine Ultrasound 08/01/21 13:00 Completed US abdomen limited [id number] Routine Ultrasound 07/29/21 11:04 Completed US venous duplex lower extremity RT [CV venous duplex Ultrasound 07/29/21 11:[place] [id number]] Routine Pending at discharge Category Date Time Status ABG ONLY [Arterial Blood Gas W/O Coox] Stat Lab 07/30/21 17:22 Results SARS Covid-2 Antigen Stat Lab 08/13/21 12:33 Ordered Radiology Impressions Abdomen/Pelvis CT 07/29/21 08:35 IMPRESSION: 1. Study compromised by body habitus and breathing artifact. 2. No renal obstruction or significant perinephric stranding. 3. Exophytic subcentimeter masses from the RIGHT kidney cannot be further characterized on this unenhanced study due to their small size and no contrast. 4. No appendicitis. 5. Subsegmental atelectasis at the lung bases. Abdomen Ultrasound 07/29/21 11:04 IMPRESSION: 1. Very limited evaluation of the RIGHT upper quadrant due to body habitus. 2. Hepatic steatosis and hepatomegaly and hepatic cyst. 3. No gallbladder abnormality identified. Venous Duplex 07/29/21 11:26 IMPRESSION: 1. No evidence for deep vein thrombosis. Lower Extremity CTA 07/29/21 17:31 IMPRESSION: 1. Moderate disease in the right anterior tibial and posterior tibial arteries with visible runoff to the foot. 2. Calcified plaque with moderate focal stenosis in the left popliteal artery. 3. Severe multifocal disease in the left anterior tibial artery with no visible runoff to the foot. 4. Subcutaneous soft tissue edema or cellulitis in the right lower leg, ankle, and dorsal foot. Head CT 08/05/21 14:41 IMPRESSION: There are no acute concerning abnormalities. Chest X-Ray 08/08/21 06:00 IMPRESSION: 1. No acute cardiopulmonary finding. Laboratory Results WBC 19.6 10^3/uL (4.0-10.0) H 08/10/21 04:40 Corrected WBC Cancelled 08/07/21 05:00 RBC 4.06 10^6/uL (4.1-5.3) L 08/10/21 04:40 Hgb 11.7 g/dL (11.7-16.6) 08/10/21 04:40 Hct 35.3 % (42.0-52.0) L 08/10/21 04:40 MCV 86.9 fl (80-94) 08/10/21 04:40 MCH 28.8 pg (28.0-34.0) 08/10/21 04:40 MCHC 33.1 g/dL (30.0-36.0) 08/10/21 04:40 RDW 13.5 % (12.1-15.1) 08/10/21 04:40 Plt Count 377 10^3/cmm (130-400) 08/10/21 04:40 MPV 11.6 fL (7.4-10.4) H 08/10/21 04:40 Gran % Cancelled 08/07/21 05:00 Neut % (Auto) 86.0 % 08/10/21 04:40 Lymph % (Auto) 5.2 % 08/10/21 04:40 [place] % (Auto) 7.4 % 08/10/21 04:40 Eos % (Auto) 0.4 % 08/10/21 04:40 Baso % (Auto) 0.4 % 08/10/21 04:40 Neut # (Auto) 16.87 10^3/uL (1.8-7.7) H 08/10/21 04:40 Lymph # (Auto) 1.0 10^3/uL (0.8-4.8) 08/10/21 04:40 [place] # (Auto) 1.4 10^3/uL (0.2-0.9) H 08/10/21 04:40 Eos # (Auto) 0.1 10^3/uL (0.0-0.8) 08/10/21 04:40 Baso # (Auto) 0.1 10^3/uL (0.0-0.1) 08/10/21 04:40 Absolute Gran (auto) Cancelled 08/07/21 05:00 Nucleated RBC % (auto) 0 % 08/10/21 04:40 Total Counted 100 (0-100) 07/30/21 11:42 Atypical Lymphs % 1.0 % (0-5) 07/30/21 11:42 Absolute Neutrophils 18.5 10^3/cmm (1.4-6.5) H 07/30/21 11:42 Segmented Neutrophils 72 % 07/30/21 11:42 Abs Segm Neuts (Man) 14.3 10/cmm (1.6-7.1) H 07/30/21 11:42 Band Neutrophils 21.0 % 07/30/21 11:42 Abs Band Neuts (Man) 4.2 10^3/cmm (0.0-1.2) H 07/30/21 11:42 Absolute Lymphocytes 0.8 10^3/cmm (1.2-3.4) L 07/30/21 11:42 Lymphocytes (Manual) 3 % 07/30/21 11:42 Monocytes (Manual) 2.0 % 07/30/21 11:42 Absolute Monocytes 0.4 10^3/cmm (0.1-0.6) 07/30/21 11:42 Eosinophils (Manual) 0 % 07/30/21 11:42 Absolute Eosinophils 0.0 10^3/cmm (0.0-0.7) 07/30/21 11:42 Basophils (Manual) Not Reportable 07/30/21 11:42 Absolute Basophils 0.0 10^3/cmm (0.0-0.2) 07/29/21 01:56 Metamyelocytes 1.0 % 07/29/21 01:56 Nucleated RBCs 1.0 /100WBC (0-1) 07/30/21 11:42 Nucleated RBCs # 0.0 /100WBC 08/10/21 04:40 Toxic Granulation 1+ H 07/29/21 01:56 Toxic Vacuolation 1+ H 07/30/21 11:42 Platelet Estimate Decreased (Normal) 07/30/21 11:42 Giant Platelets 1+ H 07/30/21 11:42 Polychromasia Trace 07/30/21 11:42 ESR 40 mm/hr (0-10) H 07/30/21 11:42 Haptoglobin 185.0 mg/L (30-200) 07/30/21 03:37 Heparin Require Pat 0.177 07/30/21 11:42 PT 15.10 SECONDS (12.1-14.9) H 08/02/21 05:16 INR 1.15 (0.8-1.2) 08/02/21 05:16 Specimen Type Arterial 08/05/21 16:57 Sample Site Brachial, left 08/05/21 16:57 ABG pH 7.38 (7.35-7.45) 08/05/21 16:57 ABG pCO2 34.1 mmHg (35-45) L 08/05/21 16:57 ABG pO2 111.0 mmHg (80.0-100.0) H 08/05/21 16:57 ABG HCO3 20.3 mmol/L (22-26) L 08/05/21 16:57 ABG Base Excess -4.0 mmol/L (-2.0-2.0) L 08/05/21 16:57 Max Test Pos 08/05/21 16:57 Hematocrit 38.1 % (42-52) L 08/05/21 16:57 O2 Delivery Device Nc 08/05/21 16:57 O2 Liters/Min 4.0 % 08/05/21 16:57 FiO2 36.0 % 08/05/21 16:57 CPAP 14.0 cmH20 08/02/21 03:39 Professor Of Engineering ID Cak 08/05/21 16:57 Sodium 141 mmol/L (136-145) 08/10/21 04:40 Potassium 3.8 mmol/L (3.5-5.1) 08/10/21 04:40 Chloride 110 mmol/L (98-107) H 08/10/21 04:40 Carbon Dioxide 22 mmol/L (22-29) 08/10/21 04:40 Anion Gap 12.8 (5-19) 08/10/21 04:40 BUN 39 mg/dL (8-23) H 08/10/21 04:40 Creatinine 1.1 mg/dL (0.7-1.2) 08/10/21 04:40 GFR Calculation Not Reportable 08/10/21 04:40 Glucose 183 mg/dL (65-115) H 08/10/21 04:40 POC Glucose 319 mg/dL (70-110) H 08/13/21 10:50 Calculated Osmolality 306 mOsm/kg (285-295) H 08/10/21 04:40 Lactic Acid 6.0 mmol/L (0.5-2.2) H* 07/29/21 10:03 Lactic Acid (Sepsis) 3.3 mmol/L (0.5-2.2) H 07/29/21 16:05 Lactate 1.6 mmol/L (0.5-2.2) 08/02/21 05:16 Calcium 9.3 mg/dL (8.5-10.5) 08/10/21 04:40 Phosphorus 3.6 mg/dL (2.5-4.5) 08/07/21 05:00 Magnesium 2.0 mg/dL (1.7-2.3) 08/07/21 05:00 Total Bilirubin 0.6 mg/dL (0.15-1.2) 08/08/21 06:03 AST 14 U/L (0-40) 08/08/21 06:03 ALT 14 U/L (0-41) 08/08/21 06:03 Alkaline Phosphatase 115 IU/L (40-130) 08/08/21 06:03 Creatine Kinase 58 U/L (39-308) 08/07/21 05:00 Troponin T Baseline 42 ng/L (0-15) H 07/30/21 11:42 Troponin T 120 Minute 37.83 ng/L (0-15) H 07/30/21 13:39 Delta Troponin T -4.17 ABS# (0-10) L 07/30/21 13:39 Troponin T Hi Sens 6Hr 36.39 ng/L (0-15) H 07/30/21 17:36 Troponin T Hi Sens 6Hr Delta -5.61 ng/L (0-12) L 07/30/21 17:36 C-Reactive Protein 146.6 mg/L (0.0-4.9) H 08/07/21 05:00 NT-Pro-B Natriuret Pep 3180 pg/mL (0-450) H 08/02/21 05:16 Total Protein 5.5 g/dL (6.6-8.7) L 08/08/21 06:03 Albumin 1.4 g/dL (3.5-5.2) L 08/08/21 06:03 Globulin 4.1 g/dL (1.3-4.6) 08/08/21 06:03 Vitamin B12 1335 pg/mL (232-1245) H 08/08/21 06:03 Folate 7.8 ng/mL (4.5-32.2) 08/08/21 06:03 Procalcitonin 5.24 ng/mL (0-0.5) H 08/02/21 05:16 TSH 1.48 uIU/mL (0.27-4.20) 08/07/21 05:00 Urine Color Red (Yellow) 08/04/21 00:05 Urine Appearance Cloudy (CLEAR) 08/04/21 00:05 Urine pH 5 (5-7) 08/04/21 00:05 Ur Specific [place] 1.015 (1.005-1.030) 08/04/21 00:05 Urine Protein 3+ (Negative) H 08/04/21 00:05 Urine Glucose (UA) Norm (Normal) 08/04/21 00:05 Urine Ketones Negative (Negative) 08/04/21 00:05 Urine Blood 3+ (Negative) H 08/04/21 00:05 Urine Nitrate Negative (Negative) 08/04/21 00:05 Urine Bilirubin Neg (Negative) 08/04/21 00:05 Urine Urobilinogen Norm mg/dL (Negative) 08/04/21 00:05 Ur Leukocyte Esterase Trace (Negative) H 08/04/21 00:05 Urine RBC >100 /hpf (0-2) H 08/04/21 00:05 Urine WBC 5-10 /hpf (0-5) H 08/04/21 00:05 Ur Squamous Epith Cells 0-4 /hpf (0-5) H 08/04/21 00:05 Amorphous Sediment Not Reportable 08/04/21 00:05 Urine Bacteria Trace /hpf (NONE) 08/04/21 00:05 Fine Granular Casts 0-4 /lpf H 07/29/21 04:08 Coarse Granular Casts 0-4 /lpf H 07/29/21 04:08 Urine Mucus Trace /hpf 08/04/21 00:05 Vancomycin Trough 12.8 ug/mL (10-15) 08/10/21 04:40 Topiramate <0.5 mcg/mL 07/29/21 16:05 Serum Ketones Negative (Negative) 07/29/21 01:56 Heparin-induced Ab Negative (NEGATIVE) 07/30/21 11:42 UF Heparin Low Dose 1 3 % release 07/30/21 11:42 UF Heparin Low Dose 2 4 % release 07/30/21 11:42 UF Heparin High Dose 0 % release 07/30/21 11:42 AUAR Unfract Heparin Negative (NEGATIVE) 07/30/21 11:42 Coronavirus 229E (PCR) Not detected (NOT DETECT) 07/29/21 15:10 SARS-CoV-2 (PCR) Not detected (NOT DETECT) 07/29/21 15:10 Vitals Last Vital Signs Temp 99.3 F 08/13/21 07:29 Pulse 125 H 08/13/21 07:29 Resp 20 H 08/13/21 07:29 BP 160/84 08/13/21 07:29 Pulse Ox 95 08/13/21 07:29 Discharge Plan Discharge Patient Disposition: Hospice - Medical Facility Condition: Stable Prescriptions: Discontinued duloxetine [Cymbalta] 30 mg capsule,delayed release(DR/EC) 30 mg PO BID Qty: 60 2RF furosemide [Lasix] 40 mg tablet 40 mg PO DAILY PRN (Reason: edema) Qty: 30 2RF valsartan 160 mg tablet 160 mg PO DAILY Qty: 30 2RF topiramate [Topamax] 100 mg tablet 100 mg PO BID Qty: 60 2RF glipizide 5 mg Tablet 2.5 mg PO DAILY 0RF metformin 500 mg Tablet 1,000 mg PO BID 0RF Zyrtec 5 mg Tablet 5 mg PO DAILY PRN (Reason: Allergy Symptoms) 0RF tizanidine 4 mg Tablet 2 mg PO TID PRN (Reason: Muscle Spasticity) 0RF Aspir-81 81 mg Tablet,Delayed Release (Dr/Ec) 81 mg PO DAILY 0RF Colace 100 mg Capsule 100 mg PO DAILY PRN (Reason: Constipation) 0RF Vitamin D3 25 mcg (1,000 unit) Tablet 25 mcg PO DAILY 0RF alogliptin 12.5 mg Tablet 12.5 mg PO DAILY 0RF diltiazem HCl 240 mg Capsule,Extended Release 24hr 240 mg PO QAM 0RF Discharge Orders: Discharge Order (Routine); Ordered 08/13/21 Ordered By: Aba Carreon Referrals: [place], [place] [Other] () [facility] [Outside] Domingo Lazcano DO [Primary Care Provider] - 08/22/21 10:30 am Discharge Diet: Regular Discharge Activity: Resume usual activity Patient Instructions: Hospice Care (GEN) Discharge Attestations Time Spent in Discharge Care*: less than 30 min Quality Metrics Clinical Quality Measures [ No reported AMI, CVA or VTE this stay] Coding Level of Care Code Acute Chg FW DC note Diagnoses Goals of care, counseling/discussion Z71.89 SIRS (systemic inflammatory response syndrome) R65.10 Atrial fibrillation with RVR I48.91 Acute encephalopathy G93.40 Acidosis, lactic E87.2 Acute kidney injury superimposed on CKD N17.9; N18.9 Cellulitis L03.90 Hyperglycemia R73.9 Rhabdomyolysis M62.82 Renal mass, right N28.89 Hypertension I10 Hypertension type: essential hypertension Metabolic acidosis E87.2 ALEX on CPAP G47.33; Z99.89 Type 2 diabetes mellitus with diabetic polyneuropathy E11.42; Z79.4 Diabetes mellitus group home insulin use: with intermediate designer use Bacteremia due to group B Streptococcus R78.81; B95.1 Peripheral vascular disease I73.9 Sinus tachycardia R00.0
[2021-08-13 13:21] VITALS: O2SAT 95
[2021-08-13 13:41] LABS: SARS Covid-2 Antigen Negative (Negative)
[2021-08-13 17:24] LABS: Glucose Point of Care 298 mg/dL (70-110)
[2021-08-13] MEDS: insulin glargine 100 units/1 mL 15 UNIT SUBCUT (17:29)
[2021-08-13 20:00] VITALS: BP 164/84; PULSE 113; PULSE 88; RESP 20; TEMP 37.1; O2SAT 94; O2SAT 95
[2021-08-13] MEDS: insulin lispro 100 unit/1 mL SUBCUT (23:01)
[2021-08-13] MEDS: metoprolol tartrate 25 mg Tablet PO (23:03)
[2021-08-13 23:23] LABS: Glucose Point of Care 243 mg/dL (70-110)
[2021-08-14] MEDS: morphine 10 mg/0.5 mL oral liq UD 5 MG PO (02:38)
[2021-08-14] MEDS: pantoprazole DR 40 mg Tablet PO (05:51)
[2021-08-14] MEDS: sucralfate 1 gm Tablet PO (05:52)
[2021-08-14] MEDS: insulin glargine 100 units/1 mL 15 UNIT SUBCUT (06:00)
[2021-08-14 06:09] LABS: Glucose Point of Care 215 mg/dL (70-110)
[2021-08-14 08:00] VITALS: BP 167/107; PULSE 126; RESP 18; TEMP 37.3
[2021-08-14 08:17] VITALS: BP 167/107; PULSE 126; RESP 18; TEMP 37.3; O2SAT 95
[2021-08-14] MEDS: insulin lispro 100 unit/1 mL SUBCUT (08:39)
[2021-08-14] MEDS: metoprolol tartrate 25 mg Tablet PO (08:40)
[2021-08-14] MEDS: fluconazole 100 mg Tablet 200 MG PO (08:40)
[2021-08-14] MEDS: dilTIAZem ER (24HR) 180 mg Capsule PO (08:40)
[2021-08-14] MEDS: duloxetine 30 mg Capsule PO (08:40)
[2021-08-14] MEDS: amiodarone 200 mg Tablet 400 MG PO (08:40)
[2021-08-14] MEDS: aspirin 81 mg EC Tablet PO (08:41)
[2021-08-14] MEDS: topiramate 100 mg Tablet 50 MG PO (08:41)
[2021-08-14] MEDS: docusate sodium 100 mg Capsule PO (08:41)
[2021-08-14] MEDS: polyethylene glycol 3350 Pkt 17 gm PO (08:42)
[2021-08-14] MEDS: nystatin powder 15 gm Btl 1 APPLIC TOPICAL (08:42)
--- NOTE | 2021-08-14 11:42 | P.PN_ITS ---
Subjective Subjective: This is progress note for 08/13/2021 -Patient was seen this morning, sister at bedside -He remains alert to person, not to place, not to time -His sister tells me that they are ready for hospice, she is come to terms with his condition, when he has been more alert and awake he has told her multiple times while she has been in the room to let him go, he just wants to be comfortable, and she says that she wants to respect his decision -Patient refuses to take his p.o. medications, he is allowing for insulin administration and blood sugar checks -Has crackles on exam, in all lung david, heart rates are in A. fib, I advised sister at bedside, he is likely developing A. fib with RVR with pulmonary edema, however he refuses to take his metoprolol, we certainly could prescribe Lasix, but he refuses to take p.o. medications -Patient's sister is okay not taking any medications,, she just wants him to be comfortable Vitals/I&O/Wt Last Vital Signs Temp 99.2 F 08/14/21 08:17 Pulse 126 H 08/14/21 08:17 Resp 18 08/14/21 08:17 BP 167/107 08/14/21 08:17 Pulse Ox 95 08/14/21 08:17 08/13/21 08/14/21 08/14/21 22:59 06:59 14:59 Intake Total 60 / 400 Output Total 925 / 1925 1740 / 3665 Balance -925 / -1585 -1680 / -3265 Weight last 48 hrs Weight 173.318 kg Physical Exam Const: COMMON NORMALS: no acute distress OTHER: Alert to person, not to place, not to time Resp: COMMON NORMALS: normal respiratory effort, No retractions, No use of accessory muscles and clear to auscultation bilaterally AUSCULTATION: clear to auscultation bilaterally Cardio: COMMON NORMALS: regular rate, regular rhythm, S1 normal heart sound present and S2 normal heart sound present RATE: regular rate RHYTHM: regular rhythm HEART SOUNDS: S1 normal heart sound present and S2 normal heart sound present GI: COMMON NORMALS: Normal to inspection, nondistended, normoactive bowel sounds present, Soft to palpation and non-tender PALPATION: Yes Soft to palpation Extremity: COMMON NORMALS: no pedal edema Urinary Catheter Management: 3-way Urethral CBI: Cath Placed During This Visit: yes Urinary Catheter Date of Insertion: 08/05/21 Urinary Catheter Time of Insertion: 10:45 Data : 08/10/21 04:40 08/10/21 04:40 A&P Assessment and plan (1) Goals of care, counseling/discussion: Status: Acute Plan We will stop IV antibiotics, stop p.o. medications, start hospice orders here in the hospital, plan is to discharge on hospice to longterm Attestations Medical Necessity Statement*: Patient requires hospitalization, on hospice, will be discharged to longterm on hospice Coding Level of Care Code Acute Senior Assistant Manager for Chg Fwd Diagnoses Goals of care, counseling/discussion Z71.89
--- NOTE | 2021-08-14 12:12 | PC.NURSE ---
Called report to Martita Ballard at [phone]
[2021-08-14 12:13] VITALS: BP 167/107; PULSE 126; RESP 18; TEMP 37.3; O2SAT 95
== END 2021-08-14 12:17 | disposition hospice, inpatient (51) | DRG 871 ==
LOC: ER 02:36 → ICU 04:26 → MEDSURG 08-02 10:03
PROVIDERS: Hospitalist; Internal Medicine; Admitting Provider Internal Medicine; Emergency Provider Emergency Medicine; PCP Emergency Medicine Emergency Medical Services; Visit Provider Family Medicine
DX: A41.9 Sepsis, unspecified organism (principal); G92.8 Other toxic encephalopathy; J18.9 Pneumonia, unspecified organism; L03.115 Cellulitis of right lower limb; N17.9 Acute kidney failure, unspecified; M62.82 Rhabdomyolysis; Z68.43 Body mass index [BMI] 50.0-59.9, adult; K92.1 Melena; E11.22 Type 2 diabetes mellitus with diabetic chronic kidney disease; I12.9 Hypertensive chronic kidney disease with stage 1 through stage 4 chronic kidney disease, or unspecified chronic kidney disease; N18.9 Chronic kidney disease, unspecified; G47.33 Obstructive sleep apnea (adult) (pediatric); Z99.89 Dependence on other enabling machines and devices; E11.65 Type 2 diabetes mellitus with hyperglycemia; E11.42 Type 2 diabetes mellitus with diabetic polyneuropathy; E55.9 Vitamin D deficiency, unspecified; Z85.828 Personal history of other malignant neoplasm of skin; Z87.891 Personal history of nicotine dependence; I48.91 Unspecified atrial fibrillation; I87.2 Venous insufficiency (chronic) (peripheral); E66.01 Morbid (severe) obesity due to excess calories; Z51.5 Encounter for palliative care; D63.1 Anemia in chronic kidney disease; Z66 Do not resuscitate; B95.1 Streptococcus, group B, as the cause of diseases classified elsewhere; R31.0 Gross hematuria; N28.89 Other specified disorders of kidney and ureter; D69.6 Thrombocytopenia, unspecified
CPT/HCPCS: 36415; 36416; 36600; 70450; 71045; 73706; 74176; 76705; 80048; 80053; 80201; 80202; 80503; 81001; 82009; 82274; 82550; 82607; 82746; 82803; 82962; 83010; 83605; 83735; 83880; 84100; 84145; 84443; 84484; 85007; 85025; 85610; 85651; 86140; 87040; 87086; 87150; 87186; 87205; 87426; 87635; 92523; 92526; 92610; 93005; 93312; 93320; 93325; 93971; 94660; 94762; 96365; 96367; 96372; 96375; 97110; 97112; 97163; 97167; 97530; 97535; 99285; C8929; J0282; J0743; J1450; J1644; J1815 ×2; J1940; J2543; J2704; J3370; J7030; J7050; J7060; Q3014; Q9956; Q9967